=== PATIENT | male | born 1940 | race Caucasian/White ===

== ENCOUNTER 2016-10-25 06:53 | Emergency (ER) | payer MEDICARE ==
[2016-10-25] MEDS ORDERED: Metoprolol Tartrate IV* 1 MG/ML 5 ML VIAL IV ONE (07:33)
[2016-10-25] MEDS ORDERED: NS 0.9% 1000 ML* 1,000 ML IV ONE (07:33)
[2016-10-25] MEDS ORDERED: Metoprolol Succinate XL TAB* 100 MG PO ONE (07:37)
[2016-10-25 07:44] LABS: Hematocrit 35 % (42-52); Hemoglobin 11.1 g/dl (14.0-18.0); Mean Corpuscular HGB Conc 32 g/dl (31-36); Mean Corpuscular Hemoglobin 27 pg (27-31); Mean Corpuscular Volume 85 fL (80-94); Mean Platelet Volume 7 um3 (7.4-10.4); Red Blood Count 4.08 10^6/ul (4.0-5.4); Red Cell Distribution Width 17 % (10.5-15); White Blood Count 8.2 10^3/ul (3.5-10.8)
[2016-10-25 08:00] LABS: Albumin 3.4 g/dL (3.2-5.2); Calcium 8.9 mg/dL (8.6-10.3); EGFR African American 93.2 (>60); EGFR Non-African American 72.5 (>60); Globulin 3.2 g/dL (2-4); Magnesium 1.8 mg/dL (1.9-2.7); Potassium 3.8 mmol/L (3.5-5.0); Total Bilirubin 0.5 mg/dL (0.2-1.0); Total Protein 6.6 g/dL (6.4-8.9)
[2016-10-25 08:02] LABS: Troponin I 0.01 ng/mL (<0.04)
[2016-10-25] MEDS ORDERED: Magnesium Oxide TAB* 400 MG PO ONE (08:11)
--- NOTE | 2016-10-25 08:16 | RAD ---
INDICATION: "Racing heart" COMPARISON: Chest x-ray dated December 26, 2015 TECHNIQUE: Single AP portable view of the chest was obtained. FINDINGS: Image quality is compromised due to the relative inferiority of a portable chest x-ray. Postoperative findings include sternotomy wires and surgical clips overlying the left upper mediastinum. The heart and mediastinum exhibit normal size and contour. The lungs are grossly clear. There is no evidence of a large pleural effusion. Visualized bones are normal for the patient's age. IMPRESSION: No radiographic evidence for acute cardiopulmonary abnormality on this portable chest x-ray.
[2016-10-25 08:48] VITALS: BP 130/75
[2016-10-25 09:01] LABS: TSH (Thyroid Stimulating Horm) 3.45 mcIU/mL (0.34-5.60)
--- NOTE | 2016-10-25 12:54 | ED ---
Hayley Mosqueda Matthew, scribed for Axel Torres MD on 10/25/16 at 0739 . Palpitations / Dysrhythmia - HPI Summary HPI Summary: A 75 y/o male presents to the ED with palpitations since this morning s/p CABG. The patient had [place] The patient has had a normal recover thus far except for recurrent UTIs with associated dysuria. The patient has been on Abx course since 3 days ago and had a bout of diarrhea on 10/22, which has since resolved. Today, the patient denies lightheadedness, fever, chills, chest pain, SOB, diarrhea, vomiting, and decreased appetite. He's been having normal BM. The patient is on 100mg of metoprolol once per day; however, he ran out of the medication a few days ago. - History of Current Complaint Chief Complaint: EDGeneral Time Seen by Provider: 10/25/16 07:17 Hx Obtained From: Patient, Family/Ase Certified Technician - Onset/Duration: Lasting Hours, Still Present Timing: Constant Severity Initially: Moderate Severity Currently: Moderate Character: Fast Alleviating: Nothing Associated Signs & Symptoms: Negative - Allergy/Home Medications Allergies/Adverse Reactions: Allergies Allergy/AdvReac Type Severity Reaction Status Date / Time No Known Allergies Allergy Verified 03/19/16 09:03 PMH/Surg Hx/FS Hx/Imm Hx Endocrine/Hematology History: Reports: Hx Thyroid Disease, Hx Anemia - ON IRON SUPPLEMENT Denies: Hx Anticoagulant Therapy, Hx Diabetes Cardiovascular History: Reports: Hx Angina, Hx Coronary Artery Disease - STENT , Hx Hypercholesterolemia, Hx Hypertension, Hx Myocardial Infarction, Other Cardiovascular Problems/Disorders - CARDIAC DISEASE Denies: Hx Congestive Heart Failure, Hx Pacemaker/ICD, Hx Valvular Heart Disease Respiratory History: Reports: Hx Chronic Obstructive Pulmonary Disease (COPD), Other Respiratory Problems/Disorders - ACTIVE SMOKER 2 PPD Denies: Hx Asthma GI History: Reports: Hx Diverticulosis, Hx Gastroesophageal Reflux Disease, Hx Ulcer - gerd, Other GI Disorders - HX OF DIVERTICULOSIS- MONITORING AT PRESENT History: Reports: Hx Kidney Stones - HX OF, Other Problems/Disorders - RENAL DISEASE/INSUFFENCY? Denies: Hx Dialysis, Hx Renal Disease Musculoskeletal History: Denies: Hx Osteoporosis Sensory History: Reports: Hx Cataracts - Bilateral, cataract surgery, Hx Contacts or Glasses, Hx Eye Injury - receiving abx for infection in left eye per pt. 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 Denies: Other Sensory Impairments Neurological History: Denies: Hx Dementia, Hx Seizures Psychiatric History: Denies: Hx Panic Disorder, Hx Substance Abuse - Cancer History Cancer Type, Location and Year: THROAT CA, 2009 - currently in remission Hx Chemotherapy: No Hx Radiation Therapy: Yes - Surgical History Surgery Procedure, Year, and Place: [id number]-CATARACT SX BOTH EYES-CYST REMOVED FROM RT SHOULDER 1999, stent [id number] CLEARED FOR UP TO 720G/CM-OK FOR EITHER 1.5 OR 3T-RIGHT EYE PROSTHESIS-EYES CLEARED ORBIT DX [facility] 12/14/13 Hx Anesthesia Reactions: No - Immunization History Date of Tetanus Vaccine: Unk Date of Influenza Vaccine: Fall 2012 Infectious Disease History: No Infectious Disease History: Denies: Hx Clostridium Difficile, Hx Hepatitis, Hx Human Immunodeficiency Virus (HIV), Hx of Known/Suspected MRSA, Hx Shingles, Hx Tuberculosis, Traveled Outside the [place] in Last 30 Days - Family History Known Family History: Positive: Cardiac Disease - Social History Alcohol Use: None Hx Substance Use: No Substance Use Type: Reports: None Hx Tobacco Use: Yes Smoking Status (MU): Heavy Every Day Tobacco Smoker Type: Cigarettes, Cigars Amount Used/How Often: 1ppd (+) Length of Time of Smoking/Using Tobacco: approximate 60yrs Have You Smoked in the Last Year: Yes Review of Systems Constitutional: Negative Negative: Fever, Chills Eyes: Negative ENT: Negative Positive: Palpitations. Negative: Chest Pain Respiratory: Negative Negative: Shortness Of Breath Gastrointestinal: Negative Negative: Vomiting, Diarrhea Genitourinary: Negative Musculoskeletal: Negative Skin: Negative Neurological: Negative Psychological: Normal All Other Systems Reviewed And Are Negative: Yes Physical Exam - Summary Physical Exam Summary: The patient is well-nourished in no acute distress and in no acute pain. The skin has decreased turgor. The patient also had cyanosis of nail beds. HEENT: The head is normocephalic and atraumatic. The pupils are equal and reactive. The conjunctivae are clear and without drainage. Nares are patent and without drainage. Mouth reveals dry mucous membranes and the throat is without erythema and exudate. The external ears are intact. The ear canals are patent and without drainage. The tympanic membranes are intact. Neck is supple with full range of motion and non-tender. There are no carotid bruits. There is no neck vein distension. Respiratory: Chest is non-tender. Lungs are clear to auscultation and breath sounds are symmetrical and equal. Cardiovascular: Heart is irregular rhythm with an occasional extra beat and tachycardic. There is no murmur or rub auscultated. There is no peripheral edema and pulses are symmetrical and equal. Abdomen: The abdomen is soft and non-tender. There are normal bowel sounds heard in all four quadrants and there is no organomegaly palpated. No abdomen aneurysm appreciated. Musculoskeletal: The patient's sternum scar as healed well from his CABG x3. There is no back pain noted. Extremities are non-tender with full range of motion. There is good capillary refill. There is no peripheral edema or calf tenderness elicited. Neurological: Patient is alert and oriented to person, place and time. The patient has symmetrical motor strength in all four extremities. Cranial nerves are grossly intact. Deep tendon reflexes are symmetrical and equal in all four extremities. Psychiatric: The patient has an appropriate affect and does not exhibit any anxiety or depression. Triage Information Reviewed: Yes Vital Signs On Initial Exam: Initial Vitals Temp Pulse Resp BP Pulse Ox 97.5 F 109 13 148/75 97 10/25/16 07:06 10/25/16 07:06 10/25/16 07:06 10/25/16 07:06 10/25/16 07:06 Vital Signs Reviewed: Yes - [place] Coma Scale Coma Scale Total: 15 Diagnostics - Vital Signs Vital Signs Temp Pulse Resp BP Pulse Ox 10/25/16 07:20 97.5 F 95 13 148/75 96 10/25/16 07:19 97.5 F 95 13 148/75 96 10/25/16 07:12 97.5 F 95 13 148/75 96 10/25/16 07:06 97.5 F 109 13 148/75 97 - Laboratory Lab Results: Lab Results 10/25/16 10/25/16 10/25/16 Range/Units 07:35 07:35 07:35 WBC 8.2 (3.5-10.8) 10^3/ul RBC 4.08 (4.0-5.4) 10^6/ul Hgb 11.1 L (14.0-18.0) g/dl Hct 35 L (42-52) % MCV 85 (80-94) fL MCH 27 (27-31) pg MCHC 32 (31-36) g/dl RDW 17 H (10.5-15) % Plt Count 244 (150-450) 10^3/ul MPV 7 L (7.4-10.4) um3 Neut % (Auto) 81.6 (38-83) % Lymph % (Auto) 7.7 L (25-47) % [place] % (Auto) 6.6 (1-9) % Eos % (Auto) 2.7 (0-6) % Baso % (Auto) 1.4 (0-2) % Absolute Neuts (auto) 6.7 (1.5-7.7) 10^3/ul Absolute Lymphs (auto) 0.6 L (1.0-4.8) 10^3/ul Absolute Monos (auto) 0.5 (0-0.8) 10^3/ul Absolute Eos (auto) 0.2 (0-0.6) 10^3/ul Absolute Basos (auto) 0.1 (0-0.2) 10^3/ul Absolute Nucleated RBC 0.01 10^3/ul Nucleated RBC % 0.1 Sodium 136 (133-145) mmol/L Potassium 3.8 (3.5-5.0) mmol/L Chloride 106 (101-111) mmol/L Carbon Dioxide 23 (22-32) mmol/L Anion Gap 7 (2-11) mmol/L BUN 20 (6-24) mg/dL Creatinine 1.00 (0.67-1.17) mg/dL Est GFR ( Amer) 93.2 (>60) Est GFR (Non-Af Amer) 72.5 (>60) BUN/Creatinine Ratio 20.0 (8-20) Glucose 119 H (70-100) mg/dL Lactic Acid 1.5 (0.5-2.0) mmol/L Calcium 8.9 (8.6-10.3) mg/dL Magnesium 1.8 L (1.9-2.7) mg/dL Total Bilirubin 0.50 (0.2-1.0) mg/dL AST 14 (13-39) U/L ALT 6 L (7-52) U/L Alkaline Phosphatase 101 (34-104) U/L Troponin I 0.01 (<0.04) ng/mL Total Protein 6.6 (6.4-8.9) g/dL Albumin 3.4 (3.2-5.2) g/dL Globulin 3.2 (2-4) g/dL Albumin/Globulin Ratio 1.1 (1-3) TSH 3.45 (0.34-5.60) mcIU/mL Result Diagrams: 10/25/16 07:35 10/25/16 07:35 Lab Statement: Any lab studies that have been ordered have been reviewed, and results considered in the medical decision making process. - Radiology CXR Xray Interpretation: No Acute Changes - IMPRESSION: No radiographic evidence for acute cardiopulmonary abnormality on this portable chest x-ray. Radiology Interpretation Completed By: Radiologist - EKG 06:54 Cardiac Rate: Tachycardia - 113 bpm EKG Rhythm: Sinus Tachycardia Ectopy: PVCs EKG Interpretation: RBBB; T-Wave Inversion V3-V6, Poor R Wave Progression Re-Evaluation - Re-Evaluation First Eval Re-Evaluation Time: 08:10 Change: Improved Comment: The patient feels better. He is orthostatic and is heart rate and blood pressure are down. Course/Dx - Course Assessment/Plan: A 75 y/o male presents to the ED with palpitations since this morning s/p CABG. The patient had the procedure in [place]. EKG showed sinus tachycardia at 113 bpm w/ RBBB, T-Wave Inversion V3-V6, and Poor R Wave Progression. CXR showed no active cardiopulmonary disease. Patient labs were reviewed. In the ED course, the patient was given IV fluid, MagOx, Toprol, and Lopressor. He did well in the ED and is orthostatic. The patient will be discharged home and has a scheduled echocardiogram. - Diagnoses Differential Diagnosis/HQI/PQRI: Positive: Coronary Artery Disease, Hypokalemia , Other - hypomagnesium, anemia, a-fib Provider Diagnoses: Tachycardia, Dehydration Discharge - Discharge Plan Condition: Stable Disposition: HOME Prescriptions: Metoprolol Succinate XL TAB* [Toprol XL TAB*] 100 mg PO DAILY #30 tab.xl Patient Education Materials: Palpitations (ED), Dehydration (ED), Metoprolol ( By mouth) Referrals: Kaia Jeffers MD [Primary Care Provider] - 3 Days Additional Instructions: Please follow-up with your your primary care physician and keep your appointment for your echocardiogram. The documentation as recorded by the Hayley melendrez Matthew accurately reflects the service I personally performed and the decisions made by , Axel Torres MD.
== END 2016-10-25 08:46 | disposition home or self-care (01) ==
LOC: ED 06:53
DX: R00.0 Tachycardia, unspecified (principal); Z95.1 Presence of aortocoronary bypass graft; F17.290 Nicotine dependence, other tobacco product, uncomplicated; I25.810 Atherosclerosis of coronary artery bypass graft(s) without angina pectoris; R94.31 Abnormal electrocardiogram [ECG] [EKG]
CPT/HCPCS: 36415; 71010; 80053; 83605; 83735; 84443; 84484; 85025; 93005; 96361; 96374; 99285; A9270-GY; J3490

== ENCOUNTER 2016-11-24 11:53 | Emergency (ER) | payer MEDICARE ==
[2016-11-24 12:06] VITALS: BP 132/55
--- NOTE | 2016-11-24 13:23 | UC ---
Andrey Mosqueda Rebecca, scribed for Ginger Monreal MD on 11/24/16 at 1228 . Abdominal Pain Male HPI - HPI Summary HPI Summary: Pt is a 75 y/o M who presents to [facility] c/o left side abd pain. Pain began gradually 4 days ago, worse today. Pain is diffuse abdominal cramping, particularly in the LLQ, without radiation. Sx aggravated and alleviated by nothing. Additionally c/o diarrhea. Denies melena or blood in stool. No urinary sx. PMHx diverticulitis and AAA. Current episode similar to previous episodes of diverticulitis flareups, the last of which was a few years ago and treated with IV abx and oral Abx. Has not had surgical intervention. PCP is Dr. Jeffers. 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 Allergy to Metronidazole. Recent PSHx triple CABG (September 2016). No cp / sob / palpitations. No n/v. No back pain. No new p/d/w. + hx aaa, last ct March 2016. 5.3cm x 5.3cm - History of Current Complaint Chief Complaint: [facility] [place] Stated Complaint: ABD PAIN Hx Obtained From: Patient Onset/Duration: Sudden Onset - 4 days, Still Present Timing: Intermittent Episodes Lasting: Severity Initially: Mild Severity Currently: Mild Pain Intensity: 1 Pain Scale Used: 0-10 Numeric Location: Diffuse Radiates: No Character: Cramping Aggravating Factor(s):: Nothing Alleviating Factor(s): Nothing Associated Signs And Symptoms: Positive: Diarrhea - 4 days, Other - Denies melena. Negative: Blood in Stool Similar Episode/Dx As:: Previous diverticulitis flareups - Allergies/Home Medications Allergies/Adverse Reactions: Allergies Allergy/AdvReac Type Severity Reaction Status Date / Time Metronidazole [From Flagyl] AdvReac Nausea And Verified 11/24/16 13:13 Vomiting PMH/Surg Hx/FS Hx/Imm Hx Previously Healthy: No - see hpi. Recent triple bypass with LLE saph harvest Endocrine History Of: Reports: Thyroid Disease - hypothyroid Denies: Diabetes Cardiovascular History Of: Reports: Cardiac Disorders - CABG x3 09/10/16, [place] 1989 w/ Angioplasty, Stents 2014, Hypertension, Myocardial Infarction Denies: Pacemaker/ICD, Congestive Heart Failure Respiratory History Of: Reports: COPD Denies: Asthma GI/ History Of: Reports: Gastroesophageal Reflux, Ulcer - gerd, Kidney Stones - HX OF, Diverticulitis Denies: Renal Disease Neurological History Of: Denies: CVA, Dementia, Seizures Other History Of: Negative For: Anticoagulant Therapy - Surgical History Surgical History: Yes Surgery Procedure, Year, and Place: 1954-APPENDECTOMY-. COLONOSCOPIES-. CATARACT SX BOTH EYES-. CYST REMOVED FROM RT SHOULDER 1999,. stent placement 2014-[place] CLEARED FOR UP TO 720G/CM-OK FOR EITHER 1.5 OR 3T-. RIGHT EYE PROSTHESIS-E[place] CLEAR[place] [facility] [place]. [place] 10 2016 - triple CABG - Family History Known Family History: Positive: Cardiac Disease - Social History Alcohol Use: Rare Substance Use Type: None Smoking Status (MU): Heavy Every Day Tobacco Smoker Type: Cigarettes, Cigars Amount Used/How Often: 1ppd (+) Length of Time of Smoking/Using Tobacco: approximate 60yrs Have You Smoked in the Last Year: Yes Household Exposure Type: Cigars - Immunization History Most Recent Influenza Vaccination: 2013 Most Recent Tetanus Shot: 2012 Most Recent Pneumonia Vaccination: 2013 Review of Systems Constitutional: Negative Skin: Negative Eyes: Negative ENT: Negative Respiratory: Negative Cardiovascular: Negative Gastrointestinal: Abdominal Pain - See HPI, Diarrhea - See HPI Genitourinary: Other - Denies melena, blood in stool Motor: Negative Neurovascular: Negative Musculoskeletal: Negative Neurological: Negative Psychological: Negative All Other Systems Reviewed And Are Negative: Yes - Comments Additional Review of Systems Comments: See HPI Physical Exam Triage Information Reviewed: Yes Appearance: Well-Nourished - sitting up, able to lie down for examination Vital Signs: Initial Vital Signs Temp 97.7 F 11/24/16 11:59 Pulse 90 11/24/16 11:59 Resp 20 11/24/16 11:59 BP 132/55 11/24/16 11:59 Pulse Ox 99 11/24/16 11:59 Vital Signs Reviewed: Yes Eye Exam: Normal ENT Exam: Normal Neck exam: Normal - supple for age, +arthritic appearance. Respiratory Exam: Normal Respiratory: Positive: Chest non-tender, Lungs clear, Normal breath sounds, No respiratory distress, No accessory muscle use Cardiovascular: Positive: RRR, No Murmur, Pulses Normal, Brisk Capillary Refill , Other: - S2 click in heart rhythm with an occasional skipped beat; Posterior tibial 1+ pulses equal, DP palpable but faint Abdominal Exam: Normal Abdomen Description: Positive: No Organomegaly, Soft, Bruit - Mid-abdominal bruit, no iliac bruit detected. Negative: Nontender - Tenderness in LLQ and LUQ , no r/g. Bowel Sounds: Positive: Present Musculoskeletal Exam: Normal Musculoskeletal: Positive: Strength Intact Neurological Exam: Normal - Nonfocal, grossly intact Psychological Exam: Normal - Conversing easily and appropriately Skin Exam: Normal Skin: Negative: rashes Abd Pain Male Course/Dx - Course Course Of Treatment: No new problems in CCC. Considered below differential Dx s. Counseled pt on the necessity of further evaluation and treatment of acute abdominal pain by [facility]. Patient offered and encouraged EMS. Patient declines. AMA signed for EMS. Spoke with Shantanu Solorio NP. Questions answered as posed. - Differential Dx/Clinical Impression Provider Diagnoses: Acute abdominal pain Discharge - Discharge Plan Condition: Stable Disposition: TRANS HIGHER LVL OF CARE FAC Referrals: Kaia Jeffers MD [Primary Care Provider] - The documentation as recorded by the Andrey melendrez Rebecca accurately reflects the service I personally performed and the decisions made by me, Ginger Monreal MD.
== END 2016-11-24 12:53 | disposition short-term general hospital (02) ==
LOC: UCEAST 11:53
DX: R10.9 Unspecified abdominal pain (principal); E03.9 Hypothyroidism, unspecified; I10 Essential (primary) hypertension; J44.9 Chronic obstructive pulmonary disease, unspecified; K21.9 Gastro-esophageal reflux disease without esophagitis; I25.2 Old myocardial infarction; Z98.61 Coronary angioplasty status; Z95.1 Presence of aortocoronary bypass graft; Z87.442 Personal history of urinary calculi; Z87.891 Personal history of nicotine dependence
CPT/HCPCS: 99202; G0463

== ENCOUNTER 2016-11-24 13:05 | Emergency (ER) | payer MEDICARE ==
[2016-11-24 15:22] LABS: Hematocrit 33 % (42-52); Hemoglobin 10.3 g/dl (14.0-18.0); Mean Corpuscular HGB Conc 31 g/dl (31-36); Mean Corpuscular Hemoglobin 26 pg (27-31); Mean Corpuscular Volume 82 fL (80-94); Mean Platelet Volume 7 um3 (7.4-10.4); Red Blood Count 4.06 10^6/ul (4.0-5.4); Red Cell Distribution Width 17 % (10.5-15); White Blood Count 11.9 10^3/ul (3.5-10.8)
[2016-11-24 15:45] LABS: Albumin 3.6 g/dL (3.2-5.2); BUN/Creatinine Ratio 18.9 (8-20); C Reactive Protein 68.72 mg/L (< 5.00); Calcium 8.8 mg/dL (8.6-10.3); EGFR African American 98.9 (>60); EGFR Non-African American 76.9 (>60); Globulin 3.2 g/dL (2-4); Total Bilirubin 0.4 mg/dL (0.2-1.0); Total Protein 6.8 g/dL (6.4-8.9)
[2016-11-24 16:16] LABS: Potassium 3.5 mmol/L (3.5-5.0)
--- NOTE | 2016-11-24 16:56 | RAD ---
CLINICAL HISTORY: Left flank pain. Relevant surgical history includes appendectomy. COMPARISON: Similar CT examination dated November 25, 2015 TECHNIQUE: Noncontrast CT examination of the abdomen and pelvis from the lung bases through the initial tuberosities acquired on November 25, 2015 at 1526 hours. FINDINGS: VISUALIZED LUNG BASES: Again seen are centrilobular emphysematous changes. ABDOMEN AND PELVIS: Evaluation of the solid organs and vasculature is limited without intravenous contrast. The liver, spleen, pancreas and adrenal glands are grossly normal in appearance. The gallbladder is normal. In the left kidney there is a nonobstructing 3 mm renal calculus. There is no hydroureter nephrosis bilaterally. Evaluation of the gastrointestinal tract is limited without oral contrast. There is no small bowel dilatation. Consistent with the patient's surgical history the appendix is not identified. There are numerable rectosigmoid diverticula with mild questionable infiltration of the pericolonic mesenteric fat at the junction of the descending colon and sigmoid colon (for example image 128 of 188). There is no gross retroperitoneal or mesenteric lymphadenopathy. The pelvic viscera is normal in appearance. There is moderate atherosclerotic calcification of the abdominal aorta extending in the bilateral iliac arteries. There is an infrarenal abdominal aortic aneurysm measuring 5.5 x 5.5 cm in the axial plane, not substantially changed from the previous CT examination. Multilevel degenerative changes of the lower thoracic and lumbar spine include loss of intervertebral disc height. There is anterior marginal bridging osteophyte formation in the lower thoracic spine.There are no sinister bone lesions. IMPRESSION: 1. Diverticulosis with questionable mild pericolonic inflammatory change at the junction of the descending colon and sigmoid colon. 2. Nonobstructing 3 mm calculus in the left kidney. 3. Abdominal aortic aneurysm measuring 5.5 x 5.5 cm in the axial plane, not substantially changed from the November 25, 2015 CT examination. 4. Additional chronic and degenerative changes as described in the body of the report.
[2016-11-24 18:08] VITALS: BP 105/51
--- NOTE | 2016-11-24 19:39 | ED ---
Kevin Mosqueda Janilya, scribed for Ray Adames MD on 11/24/16 at 1458 . Abdominal Pain/Male - HPI Summary HPI Summary: A 75 y/o male came in to [facility] presenting w/ a gradual onset of intermittent LLQ pain and diarrhea for the past 4 days. At this time, pt is not in pain. His diarrhea is runny, but it does not have blood particles. Pt denies nausea. Pt was seen at Urgent Care earlier today and sent here for further workup. PMHx diverticulitis. - History of Current Complaint Chief Complaint: EDAbdPain Stated Complaint: ABD PAIN/DIARRHEA Time Seen by Provider: 11/24/16 14:55 Hx Obtained From: Patient Onset/Duration: Gradual Onset, Lasting Days, Still Present Timing: Constant Severity Initially: Moderate Severity Currently: Moderate Pain Intensity: 20 Pain Scale Used: 0-10 Numeric Location: Discrete At: LLQ Radiates: No Aggravating Factor(s): Nothing Alleviating Factor(s): Nothing Associated Signs And Symptoms: Positive: Diarrhea - Allergies/Home Medications Allergies/Adverse Reactions: Allergies Allergy/AdvReac Type Severity Reaction Status Date / Time Metronidazole [From Flagyl] AdvReac Nausea And Verified 11/24/16 13:13 Vomiting PMH/Surg Hx/FS Hx/Imm Hx Previously Healthy: Yes Endocrine/Hematology History: Reports: Hx Thyroid Disease - hypothyroid, Hx Anemia - ON IRON SUPPLEMENT Denies: Hx Anticoagulant Therapy, Hx Diabetes Cardiovascular History: Reports: Hx Angina, Hx Coronary Artery Disease - STENT , Hx Hypercholesterolemia, Hx Hypertension, Hx Myocardial Infarction, Other Cardiovascular Problems/Disorders - CARDIAC DISEASE Denies: Hx Congestive Heart Failure, Hx Pacemaker/ICD, Hx Valvular Heart Disease Respiratory History: Reports: Hx Chronic Obstructive Pulmonary Disease (COPD), Other Respiratory Problems/Disorders - ACTIVE SMOKER 2 PPD Denies: Hx Asthma GI History: Reports: Hx Diverticulosis, Hx Gastroesophageal Reflux Disease, Hx Ulcer - gerd, Other GI Disorders - HX OF DIVERTICULOSIS- MONITORING AT PRESENT History: Reports: Hx Kidney Stones - HX OF, Other Problems/Disorders - RENAL DISEASE/INSUFFENCY? Denies: Hx Dialysis, Hx Renal Disease Musculoskeletal History: Denies: Hx Osteoporosis Sensory History: Reports: Hx Cataracts - Bilateral, cataract surgery, Hx Contacts or Glasses, Hx Eye Injury - receiving abx for infection in left eye per pt. 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 COLONOSCOPIES-. CATARACT SX BOTH EYES-. CYST REMOVED FROM RT SHOULDER 1999,. stent placement 2014-[facility] CLEARED FOR UP TO 720G/CM-OK FOR EITHER 1.5 OR 3T-. RIGHT EYE PROSTHESIS-EYES CLEARED ORBIT DX [facility] 12/14/13. September 10 2016 - triple CABG Hx Anesthesia Reactions: No - Immunization History Date of Tetanus Vaccine: Unk Date of Influenza Vaccine: Fall 2012 Infectious Disease History: No Infectious Disease History: Denies: Hx Clostridium Difficile, Hx Hepatitis, Hx Human Immunodeficiency Virus (HIV), Hx of Known/Suspected MRSA, Hx Shingles, Hx Tuberculosis, Traveled Outside the [place] in Last 30 Days - Family History Known Family History: Positive: Cardiac Disease - Social History Alcohol Use: Rare Hx Substance Use: No Substance Use Type: Reports: None Hx Tobacco Use: Yes Smoking Status (MU): Heavy Every Day Tobacco Smoker Type: Cigarettes, Cigars Amount Used/How Often: 1ppd (+) Length of Time of Smoking/Using Tobacco: approximate 60yrs Have You Smoked in the Last Year: Yes Review of Systems Negative: Fever Positive: Abdominal Pain, Diarrhea All Other Systems Reviewed And Are Negative: Yes Physical Exam Triage Information Reviewed: Yes Vital Signs On Initial Exam: Initial Vitals Temp Pulse Resp BP Pulse Ox 97.8 F 95 16 123/62 100 11/24/16 13:13 11/24/16 13:13 11/24/16 13:13 11/24/16 13:13 11/24/16 13:13 Vital Signs Reviewed: Yes Appearance: Positive: Well-Appearing, No Pain Distress Skin: Positive: Warm, Skin Color Reflects Adequate Perfusion, Dry Head/Face: Positive: Normal Head/Face Inspection Eyes: Positive: Normal ENT: Positive: Normal ENT inspection Neck: Positive: Supple, Nontender Respiratory/Lung Sounds: Positive: Clear to Auscultation, Breath Sounds Present Cardiovascular: Positive: RRR Abdomen Description: Positive: Soft, Other: - Mild LLQ tenderness. Negative: Nontender Bowel Sounds: Positive: Present Musculoskeletal: Positive: Normal Neurological: Positive: Normal Psychiatric: Positive: Affect/Mood Appropriate Diagnostics - Vital Signs Vital Signs Temp Pulse Resp BP Pulse Ox 11/24/16 14:39 97.9 F 101 18 118/81 96 11/24/16 13:13 97.8 F 95 16 123/62 100 - Laboratory Lab Results: Lab Results 11/24/16 11/24/16 Range/Units 15:05 15:05 WBC 11.9 H (3.5-10.8) 10^3/ul RBC 4.06 (4.0-5.4) 10^6/ul Hgb 10.3 L (14.0-18.0) g/dl Hct 33 L (42-52) % MCV 82 (80-94) fL MCH 26 L (27-31) pg MCHC 31 (31-36) g/dl RDW 17 H (10.5-15) % Plt Count 246 (150-450) 10^3/ul MPV 7 L (7.4-10.4) um3 Neut % (Auto) 80.1 (38-83) % Lymph % (Auto) 7.0 L (25-47) % [place] % (Auto) 11.3 H (1-9) % Eos % (Auto) 1.2 (0-6) % Baso % (Auto) 0.4 (0-2) % Absolute Neuts (auto) 9.5 H (1.5-7.7) 10^3/ul Absolute Lymphs (auto) 0.8 L (1.0-4.8) 10^3/ul Absolute Monos (auto) 1.4 H (0-0.8) 10^3/ul Absolute Eos (auto) 0.1 (0-0.6) 10^3/ul Absolute Basos (auto) 0.1 (0-0.2) 10^3/ul Absolute Nucleated RBC 0.01 10^3/ul Nucleated RBC % 0.1 Sodium 135 (133-145) mmol/L Potassium 3.5 (3.5-5.0) mmol/L Chloride 106 (101-111) mmol/L Carbon Dioxide 24 (22-32) mmol/L Anion Gap 5 (2-11) mmol/L BUN 18 (6-24) mg/dL Creatinine 0.95 (0.67-1.17) mg/dL Est GFR ( Amer) 98.9 (>60) Est GFR (Non-Af Amer) 76.9 (>60) BUN/Creatinine Ratio 18.9 (8-20) Glucose 95 (70-100) mg/dL Calcium 8.8 (8.6-10.3) mg/dL Total Bilirubin 0.40 (0.2-1.0) mg/dL AST 13 (13-39) U/L ALT 5 L (7-52) U/L Alkaline Phosphatase 92 (34-104) U/L C-Reactive Protein 68.72 H (< 5.00) mg/L Total Protein 6.8 (6.4-8.9) g/dL Albumin 3.6 (3.2-5.2) g/dL Globulin 3.2 (2-4) g/dL Albumin/Globulin Ratio 1.1 (1-3) Result Diagrams: 11/24/16 15:05 11/24/16 15:05 Lab Statement: Any lab studies that have been ordered have been reviewed, and results considered in the medical decision making process. - CT abd/pel CT Interpretation: Positive (See Comments) - IMPRESSION: 1. Diverticulosis with questionable mild pericolonic inflammatory change at the junction of the descending colon and sigmoid colon. 2. Nonobstructing 3 mm calculus in the left kidney. 3. Abdominal aortic aneurysm measuring 5.5 x 5.5 cm in the axial plane, not substantially changed from the November 25, 2015 CT examination. 4. Additional chronic and degenerative changes as described in the body of the report. CT Interpretation Completed By: Radiologist Abdominal Pain Fem Course/Dx - Course Course Of Treatment: Mr. Munoz's CT was equivocal for diverticulits but his clinical presentation certainly suggested it so I treated him accordingly. - Diagnoses Provider Diagnoses: Diverticulitis Discharge - Discharge Plan Condition: Stable Disposition: HOME Prescriptions: Amoxicillin/Clavulanate TAB* [Augmentin TAB 875*] 875 mg PO BID #20 tab Patient Education Materials: Diverticulitis (ED) Referrals: Kaia Jeffers MD [Primary Care Provider] - 2 Days Additional Instructions: Please follow up with your primary care provider in 2 days. The documentation as recorded by the Kevin melendrez Janilya accurately reflects the service I personally performed and the decisions made by me, Ray Adames MD.
== END 2016-11-24 18:12 | disposition home or self-care (01) ==
LOC: ED 13:05
DX: K57.92 Diverticulitis of intestine, part unspecified, without perforation or abscess without bleeding (principal); R10.32 Left lower quadrant pain; R19.7 Diarrhea, unspecified; F17.210 Nicotine dependence, cigarettes, uncomplicated
CPT/HCPCS: 36415; 74176; 80053; 82272; 85025; 86140; 99283

== ENCOUNTER 2017-06-16 08:45 | Emergency (ER) | payer MEDICARE ==
[2017-06-16 09:31] LABS: Hematocrit 39 % (42-52); Hemoglobin 12.8 g/dl (14.0-18.0); Mean Corpuscular HGB Conc 33 g/dl (31-36); Mean Corpuscular Hemoglobin 26 pg (27-31); Mean Corpuscular Volume 80 fL (80-94); Mean Platelet Volume 7 um3 (7.4-10.4); Red Blood Count 4.89 10^6/ul (4.0-5.4); Red Cell Distribution Width 20 % (10.5-15); White Blood Count 7.2 10^3/ul (3.5-10.8)
[2017-06-16 09:52] LABS: Albumin 3.7 g/dL (3.2-5.2); BUN/Creatinine Ratio 23.9 (8-20); C Reactive Protein 1.01 mg/L (< 5.00); Calcium 8.8 mg/dL (8.6-10.3); EGFR African American 80.7 (>60); EGFR Non-African American 62.8 (>60); Globulin 2.8 g/dL (2-4); Potassium 3.8 mmol/L (3.5-5.0); Total Bilirubin 0.5 mg/dL (0.2-1.0); Total Protein 6.5 g/dL (6.4-8.9)
--- NOTE | 2017-06-16 09:52 | RAD ---
INDICATION: Left flank abdominal pain. COMPARISON: There are no prior studies available for comparison. TECHNIQUE: A CT scan of the abdomen and pelvis was performed without intravenous or oral contrast. Contiguous axial sections were obtained from the lung bases through the symphysis pubis. Images were reconstructed in the coronal and sagittal planes. FINDINGS: The lung bases are clear. No pleural effusion is present. The liver and spleen are within normal limits in size without significant focal abnormality on this noncontrast study. No calcified gallstones are seen. The pancreas appears to be within normal limits in size. The adrenal glands and kidneys are normal in size. There are 2 small calculi within the lower pole of the left kidney measuring 2 and 3 mm each. There is mild bilateral perinephric stranding which appears unchanged. No hydronephrosis is seen. No ureteral or bladder calculi are noted. There is an infrarenal fusiform shaped aneurysm of the mid and distal abdominal aorta measuring up to 5.8 cm in transverse dimension slightly increased in size from the prior exam previously measuring 5.5 cm in transverse dimension. There is moderate to severe calcific plaque throughout the abdominal aorta. No significant enlarged retroperitoneal lymph nodes are seen. The stomach is moderately distended. The small bowel and colon are nondistended. The patient is status post appendectomy by history. There is severe descending and sigmoid diverticulosis without gross evidence for diverticulitis. There is a left inguinal hernia containing fat. There is a small amount of free intraperitoneal fluid in the pelvis. No free intraperitoneal air is seen. No significant focal osseous abnormality is seen. IMPRESSION: 1. SMALL NONOBSTRUCTING LEFT RENAL CALCULI. 2. MODERATE GASTRIC DISTENTION. 3. 5.8 CM FUSIFORM SHAPED ANEURYSM OF THE MID AND DISTAL ABDOMINAL AORTA SLIGHTLY INCREASED IN SIZE. 4. SMALL AMOUNT OF FREE INTRAPERITONEAL FLUID IN THE PELVIS.
[2017-06-16] MEDS ORDERED: Morphine INJ* 4 MG/ML 1 ML CARPUJECT IV ONE (10:37)
[2017-06-16] MEDS ORDERED: NS 0.9% 1000 ML* 1,000 ML IV ONE (10:37)
[2017-06-16] MEDS ORDERED: Ondansetron INJ* 2 MG/ML VIAL IV ONE (10:38)
[2017-06-16 13:00] LABS: Urine Bacteria Absent (Absent); Urine Bilirubin Negative (Negative); Urine Glucose Negative (Negative); Urine Nitrite Negative (Negative)
[2017-06-16] MEDS ORDERED: Ciprofloxacin 400MG IVPREMIX(* 400 MG/200 ML BAG IVPB ONE (13:17)
--- NOTE | 2017-06-16 14:59 | ED ---
Julienne Mosqueda Emily, scribed for David Bowen MD on 06/16/17 at 0921 . Abdominal Pain/Male - HPI Summary HPI Summary: This patient is a 76 year old M presenting to [facility] accompanied by with a chief complaint of L flank pain that began 2 weeks ago. Pain is constant and worsened [place]. The patient rates the pain 9/10 in severity. Symptoms aggravated by nothing. Symptoms alleviated by nothing. Patient denies nausea and vomiting. PMHx includes kidney stones. - History of Current Complaint Chief Complaint: EDFlankPain Stated Complaint: LEFT FLANK PAIN Time Seen by Provider: 06/16/17 09:07 Hx Obtained From: Patient Onset/Duration: Sudden Onset, Lasting Weeks, Still Present Timing: Constant, Lasting Weeks Severity Initially: Severe Severity Currently: Severe Pain Intensity: 9 Pain Scale Used: 0-10 Numeric Location: Flank - L Aggravating Factor(s): Nothing Alleviating Factor(s): Nothing Associated Signs And Symptoms: Negative: Nausea, Vomiting - Allergies/Home Medications Allergies/Adverse Reactions: Allergies Allergy/AdvReac Type Severity Reaction Status Date / Time Metronidazole [From Flagyl] AdvReac Nausea And Verified 11/24/16 13:13 Vomiting PMH/Surg Hx/FS Hx/Imm Hx Previously Healthy: No Endocrine/Hematology History: Reports: Hx Thyroid Disease - hypothyroid, Hx Anemia - ON IRON SUPPLEMENT Denies: Hx Anticoagulant Therapy, Hx Diabetes Cardiovascular History: Reports: Hx Angina, Hx Coronary Artery Disease - STENT , Hx Hypercholesterolemia, Hx Hypertension, Hx Myocardial Infarction, Other Cardiovascular Problems/Disorders - CARDIAC DISEASE Denies: Hx Congestive Heart Failure, Hx Pacemaker/ICD, Hx Valvular Heart Disease Respiratory History: Reports: Hx Chronic Obstructive Pulmonary Disease (COPD), Other Respiratory Problems/Disorders - ACTIVE SMOKER 2 PPD Denies: Hx Asthma GI History: Reports: Hx Diverticulosis, Hx Gastroesophageal Reflux Disease, Hx Ulcer - gerd, Other GI Disorders - HX OF DIVERTICULOSIS- MONITORING AT PRESENT History: Reports: Hx Kidney Stones - HX OF, Other Problems/Disorders - RENAL DISEASE/INSUFFENCY? Denies: Hx Dialysis, Hx Renal Disease Musculoskeletal History: Denies: Hx Osteoporosis Sensory History: Reports: Hx Cataracts - Bilateral, cataract surgery, Hx Contacts or Glasses, Hx Eye Injury - receiving abx for infection in left eye per pt. 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 COLONOSCOPIES-. CATARACT SX BOTH EYES-. CYST REMOVED FROM RT SHOULDER 1999,. stent placement 2014-[facility] CLEARED FOR UP TO 720G/CM-OK FOR EITHER 1.5 OR 3T-. RIGHT EYE PROSTHESIS-EYES CLEARED ORBIT DX [facility] 12/14/13. September 10 2016 - triple CABG Hx Anesthesia Reactions: No - Immunization History Date of Tetanus Vaccine: Unk Date of Influenza Vaccine: Fall 2012 Infectious Disease History: No Infectious Disease History: Denies: Hx Clostridium Difficile, Hx Hepatitis, Hx Human Immunodeficiency Virus (HIV), Hx of Known/Suspected MRSA, Hx Shingles, Hx Tuberculosis, Traveled Outside the [place] in Last 30 Days - Family History Known Family History: Positive: None - reviewed & noncontributory, Cardiac Disease - Social History Occupation: Retired Lives: With Family Alcohol Use: None Hx Substance Use: No Substance Use Type: Reports: None Hx Tobacco Use: Yes Smoking Status (MU): Heavy Every Day Tobacco Smoker Type: Cigarettes, Cigars Amount Used/How Often: 1ppd (+) Length of Time of Smoking/Using Tobacco: approximate 60yrs Have You Smoked in the Last Year: Yes Review of Systems Negative: Vomiting, Nausea Positive: flank pain All Other Systems Reviewed And Are Negative: Yes Physical Exam - Summary Physical Exam Summary: VITAL SIGNS: Reviewed. GENERAL: Patient is a well-developed and nourished male who is lying comfortable in the stretcher. ~Patient is not in any acute respiratory distress. HEAD AND FACE: Normocephalic and atraumatic. EYES: PERRLA, EOMI x 2, No injected conjunctiva. EARS: Hearing grossly intact. Ear canals and tympanic membranes are WNL. MOUTH: Oropharynx within normal limits. NECK: Supple, trachea is midline, no adenopathy, no JVD. CHEST: Symmetric, no tenderness at palpation LUNGS: Clear to auscultation bilaterally. No wheezing or crackles. CVS: RRR, S1 and S2 present, no murmurs or gallops appreciated. ABDOMEN: Soft. No signs of distention. Positive bowel sounds. No rebound no guarding, and no masses palpated. No abdominal bruit or pulsations. Positive L CVA tenderness. EXTREMITIES: FROM in all major joints, no edema, no cyanosis or clubbing. NEURO: Alert and oriented x 3. No acute neurological deficits. Speech is normal. SKIN: Dry and warm Triage Information Reviewed: Yes Vital Signs On Initial Exam: Initial Vitals Temp Pulse Resp BP Pulse Ox 97.3 F 88 20 150/104 96 06/16/17 08:46 06/16/17 08:46 06/16/17 08:46 06/16/17 08:46 06/16/17 08:46 Vital Signs Reviewed: Yes - [place] Coma Scale Coma Scale Total: 15 Diagnostics - Vital Signs Vital Signs Temp Pulse Resp BP Pulse Ox 06/16/17 09:08 83 96 06/16/17 09:07 142/65 06/16/17 08:46 97.3 F 88 20 150/104 96 - Laboratory Lab Results: Lab Results 06/16/17 06/16/17 06/16/17 Range/Units 09:20 09:20 12:40 WBC 7.2 (3.5-10.8) 10^3/ul RBC 4.89 (4.0-5.4) 10^6/ul Hgb 12.8 L (14.0-18.0) g/dl Hct 39 L (42-52) % MCV 80 (80-94) fL MCH 26 L (27-31) pg MCHC 33 (31-36) g/dl RDW 20 H (10.5-15) % Plt Count 194 (150-450) 10^3/ul MPV 7 L (7.4-10.4) um3 Neut % (Auto) 85.0 H (38-83) % Lymph % (Auto) 7.3 L (25-47) % [place] % (Auto) 5.4 (1-9) % Eos % (Auto) 0.9 (0-6) % Baso % (Auto) 1.4 (0-2) % Absolute Neuts (auto) 6.1 (1.5-7.7) 10^3/ul Absolute Lymphs (auto) 0.5 L (1.0-4.8) 10^3/ul Absolute Monos (auto) 0.4 (0-0.8) 10^3/ul Absolute Eos (auto) 0.1 (0-0.6) 10^3/ul Absolute Basos (auto) 0.1 (0-0.2) 10^3/ul Absolute Nucleated RBC 0 10^3/ul Nucleated RBC % 0 Sodium 134 (133-145) mmol/L Potassium 3.8 (3.5-5.0) mmol/L Chloride 104 (101-111) mmol/L Carbon Dioxide 23 (22-32) mmol/L Anion Gap 7 (2-11) mmol/L BUN 27 H (6-24) mg/dL Creatinine 1.13 (0.67-1.17) mg/dL Est GFR ( Amer) 80.7 (>60) Est GFR (Non-Af Amer) 62.8 (>60) BUN/Creatinine Ratio 23.9 H (8-20) Glucose 188 H (70-100) mg/dL Calcium 8.8 (8.6-10.3) mg/dL Total Bilirubin 0.50 (0.2-1.0) mg/dL AST 18 (13-39) U/L ALT 7 (7-52) U/L Alkaline Phosphatase 87 (34-104) U/L Total Creatine Kinase 148 (10-223) U/L C-Reactive Protein 1.01 (< 5.00) mg/L Total Protein 6.5 (6.4-8.9) g/dL Albumin 3.7 (3.2-5.2) g/dL Globulin 2.8 (2-4) g/dL Albumin/Globulin Ratio 1.3 (1-3) Lipase 67 (11.0-82.0) U/L Urine Color Yellow Urine Appearance Clear Urine pH 6.0 (5-9) Ur Specific [place] 1.010 (1.010-1.030) Urine Protein Negative (Negative) Urine Ketones Negative (Negative) Urine Blood 1+ H (Negative) Urine Nitrate Negative (Negative) Urine Bilirubin Negative (Negative) Urine Urobilinogen Negative (Negative) Ur Leukocyte Esterase Trace H (Negative) Urine WBC (Auto) Trace(0-5/hpf) (Absent) Urine RBC (Auto) 1+(3-5/hpf) H (Absent) Urine Bacteria Absent (Absent) Urine Glucose Negative (Negative) Urine Ascorbic Acid * H (Negative) Result Diagrams: 06/16/17 09:20 06/16/17 09:20 Lab Statement: Any lab studies that have been ordered have been reviewed, and results considered in the medical decision making process. - CT A/P CT Interpretation Completed By: Radiologist - A CT A/P READ BY RADIOLOGIST REVEALS 1. SMALL NONOBSTRUCTING LEFT RENAL CALCULI. 2. MODERATE GASTRIC DISTENTION. 3. 5.8 CM FUSIFORM SHAPED ANEURYSM OF THE MID AND DISTAL ABDOMINAL AORTA SLIGHTLY INCREASED IN SIZE. 4. SMALL AMOUNT OF FREE INTRAPERITONEAL FLUID IN THE PELVIS. ED PHSYICIAN HAS REVIEWED THIS RADIOLOGY REPORT AND AGREES. Abdominal Pain Fem Course/Dx - Course Assessment/Plan: This patient is a 76 year old M [facility] by with a chief complaint of L flank pain that began 2 weeks ago. Pain is constant and worsened [place]. The patient rates the pain 9/10 in severity. Symptoms aggravated by nothing. Symptoms alleviated by nothing. Patient denies nausea and vomiting. PMHx includes kidney stones. In the ED course an IV access was obtained. Patient was placed in a campus monitor. Patient was started with IV fluids. He was given Zofran and Morphine for the pain. Labs without any significant abnormality except for chronic anemia but improved. Glucose 188. Abdominal and pelvic CT IMPRESSION: 1. SMALL NONOBSTRUCTING LEFT RENAL CALCULI. 2. MODERATE GASTRIC DISTENTION. 3. 5.8 CM FUSIFORM SHAPED ANEURYSM OF THE MID AND DISTAL ABDOMINAL AORTA SLIGHTLY INCREASED IN SIZE. 4. SMALL AMOUNT OF FREE INTRAPERITONEAL FLUID IN THE PELVIS. Patient knows about the AAA. He just recently saw Dr. Barboza vascular surgeon and for now they are watching and he has a f/u appointment next month. Patient pain has improved but he unable to urinate. Bladder scan was performed and showe 500 cc of urine. A urinary aranda catheter was placed w/ o complications. Cath UA shows positive leukocytes w/o epithelial cells therefore I believe patient has a UTI. Patient also also has urinary retention therefore he will be discharged with a aranda catheter in place and a leg bag an af/u with urology. Patient was started on ciprofloxacin. In the ED course has been improving and stable. Patient is hemodynamically stable and A+O x 3. - Diagnoses Differential Diagnosis/HQI/PQRI: Constipation, Renal Colic, Ureteral Stone, Urinary Tract Infection Provider Diagnoses: UTI (urinary tract infection), Urinary retention, Flank pain Discharge - Discharge Plan Condition: Stable Disposition: HOME Prescriptions: Ciprofloxacin TAB* [Cipro 500 MG TAB*] 500 mg PO BID #6 tab Patient Education Materials: Urinary Tract Infection in Men (ED), Flank Pain ( ED), Ciprofloxacin (By mouth) Referrals: Kaia Jeffers MD [Primary Care Provider] - Additional Instructions: RETURN TO THE EMERGENCY DEPARTMENT FOR CHANGING OR WORSENING SYMPTOMS. The documentation as recorded by the Julienne melendrez Emily accurately reflects the service I personally performed and the decisions made by me, David Bowen MD.
[2017-06-16 15:10] VITALS: BP 124/58
== END 2017-06-16 15:04 | disposition home or self-care (01) ==
LOC: ED 08:45
DX: N39.0 Urinary tract infection, site not specified (principal); R33.9 Retention of urine, unspecified; R10.32 Left lower quadrant pain; N20.0 Calculus of kidney; Z87.442 Personal history of urinary calculi; I71.4 Abdominal aortic aneurysm, without rupture; E03.9 Hypothyroidism, unspecified; D64.9 Anemia, unspecified; I25.119 Atherosclerotic heart disease of native coronary artery with unspecified angina pectoris; I10 Essential (primary) hypertension; Z95.5 Presence of coronary angioplasty implant and graft; Z95.1 Presence of aortocoronary bypass graft; E78.00 Pure hypercholesterolemia, unspecified; J44.9 Chronic obstructive pulmonary disease, unspecified; K57.90 Diverticulosis of intestine, part unspecified, without perforation or abscess without bleeding; K21.9 Gastro-esophageal reflux disease without esophagitis; H54.61 Unqualified visual loss, right eye, normal vision left eye; Z98.49 Cataract extraction status, unspecified eye; Z85.818 Personal history of malignant neoplasm of other sites of lip, oral cavity, and pharynx; Z88.1 Allergy status to other antibiotic agents; F17.210 Nicotine dependence, cigarettes, uncomplicated
CPT/HCPCS: 36415; 51702; 74176; 80053; 81003; 81015; 82550; 83690; 85025; 86140; 87086; 96361; 96365; 96375; 99283; J0744; J2270; J2405

== ENCOUNTER 2017-06-17 01:57 | Emergency (ER) | payer MEDICARE ==
[2017-06-17] MEDS ORDERED: NS 0.9% 1000 ML* 1,000 ML IV ONE (03:08)
[2017-06-17] MEDS ORDERED: Ondansetron INJ* 2 MG/ML VIAL IV ONE (03:10)
[2017-06-17] MEDS ORDERED: Morphine INJ* 4 MG/ML 1 ML CARPUJECT IV ONE (03:10)
[2017-06-17 03:43] LABS: Hematocrit 38 % (42-52); Mean Corpuscular HGB Conc 32 g/dl (31-36); Mean Corpuscular Hemoglobin 26 pg (27-31); Mean Corpuscular Volume 80 fL (80-94); Mean Platelet Volume 7 um3 (7.4-10.4); Red Blood Count 4.69 10^6/ul (4.0-5.4); Red Cell Distribution Width 20 % (10.5-15); White Blood Count 8.4 10^3/ul (3.5-10.8)
[2017-06-17 03:55] LABS: ALT 7 U/L (7-52); AST 18 U/L (13-39); Albumin 3.5 g/dL (3.2-5.2); Alkaline Phosphatase 79 U/L (34-104); Anion Gap 5 mmol/L (2-11); BUN/Creatinine Ratio 15.5 (8-20); Blood Urea Nitrogen 17 mg/dL (6-24); C Reactive Protein < 1.00 mg/L (< 5.00); CO2 Carbon Dioxide 24 mmol/L (22-32); Calcium 8.8 mg/dL (8.6-10.3); Chloride 106 mmol/L (101-111); EGFR African American 83.3 (>60); EGFR Non-African American 64.7 (>60); Globulin 2.9 g/dL (2-4); Glucose 124 mg/dL (70-100); Lipase 33 U/L (11.0-82.0); Potassium 3.9 mmol/L (3.5-5.0); Sodium 135 mmol/L (133-145); Total Protein 6.4 g/dL (6.4-8.9)
[2017-06-17] MEDS ORDERED: Iohexol 350* (CONTRAST) 500 ML MDV IV ONE (04:21)
[2017-06-17 05:49] LABS: Urine Bacteria Absent (Absent); Urine Bilirubin Negative (Negative); Urine Glucose Negative (Negative); Urine Nitrite Negative (Negative)
[2017-06-17] MEDS ORDERED: Acetaminophen TAB* 325 MG PO ONE (08:53)
--- NOTE | 2017-06-17 09:05 | RAD ---
INDICATION: 76-year-old with left flank pain pain. Known left-sided nephrolithiasis and known 6 cm abdominal aortic aneurysm COMPARISON: CT abdomen pelvis June 16, 2017 TECHNIQUE: Axial source images were obtained from the hemidiaphragms to the symphysis pubis following administration of oral and intravenous contrast. CT angiographic technique was utilized with injection of 94 mL Omnipaque 350. Coronal and sagittal reconstructed images were acquired. 3-D volume rendered images of the aorta were acquired Lung bases: The lung bases are clear. Liver: The liver is normal in size. There are no masses on the early arterial phase enhanced images. There is no ductal dilatation. Gallbladder: There are no calcified gallstones. There is no evidence of wall thickening or pericholecystic fluid. Spleen: The spleen is normal in size. Early arterial phase imaging shows no evidence of a mass. Pancreas: There is no focal pancreatic mass or ductal dilatation. Adrenal glands: There is no evidence of adrenal mass. Kidneys: The kidneys are normal in size and position. There are prompt nephrograms and there is prompt excretion bilaterally. There are no renal parenchymal masses. There is nonobstructive left-sided nephrolithiasis better identified on the noncontrast study from the previous day. Adenopathy: There is no evidence of adenopathy by size criteria. Fluid collections: There is trace intraperitoneal fluid appearing less conspicuous than the study from the previous day. Vessels: There is again an aneurysm of the infrarenal abdominal aorta measuring 5.6 x 5.9 cm in transverse dimensions and 8 cm in cephalocaudal dimension. The aneurysm originates approximately 3 cm below the renal arteries and is associated with circumferential thrombus. There is no direct CT evidence of this aneurysm is leaking The visceral branches arise satisfactorily with an early arterial bifurcation on the right. There are extensive intimal calcifications of the aorta and iliac vessels GI tract: There are no acute CT bowel findings. There is no obstruction. The stomach and small bowel appear normal. The lower GI tract is remarkable for moderate diverticula of the sigmoid colon with suspected mild chronic bowel wall thickening. The cecum, ileocecal valve, and terminal ileum appear normal. The appendix is visualized and appear normal. Pelvic organs: The prostate and seminal vesicles appear normal Bladder: There are no bladder masses. The bladder is distended Abdominal and pelvic soft tissues: There is a fat-containing left inguinal hernia. Osseous structures: There are no acute osseous findings. There is multilevel spondylitic change. Other: None IMPRESSION: 1. 6 cm infrarenal abdominal aortic aneurysm, unchanged. 2. Left-sided nephrolithiasis, unchanged 3. Diverticulosis sigmoid colon, unchanged
[2017-06-17 13:10] VITALS: BP 161/87
--- NOTE | 2017-06-18 14:17 | ED ---
Racheal Mosqueda Alfonso, scribed for Reynaldo Goodman MD on 06/17/17 at 1052 . Progress - Progress Note Progress Note: Per radiologist at [facility], CTA abdomen reveals 1. 6 cm infrarenal abdominal aortic aneurysm, unchanged. 2. Left-sided nephrolithiasis, unchanged 3. diverticulosis sigmoid colon, unchanged. ED physician has reviewed this radiology report and agrees. Consulted Dr. Mitchell (urologist) who scheduled an appointment for tomorrow. Patient reports feeling much better. Discussed plan for discharge and follow up with urology tomorrow. He ran out of tamsulosin a week ago, however, due to close urology follow up and his 2 L urine output, this will not be prescribed today. Patient was kept upright and there was post obstructive diaresis monitoring Course/Dx - Diagnoses Provider Diagnoses: Left flank pain, Noncompliance with medications, Acute urinary retention The documentation as recorded by the Racheal melendrez Alfonso accurately reflects the service I personally performed and the decisions made by , Reynaldo Goodman MD.
== END 2017-06-17 13:11 | disposition home or self-care (01) ==
LOC: ED 01:57
DX: R10.84 Generalized abdominal pain (principal); Z91.14 Patient's other noncompliance with medication regimen; R33.9 Retention of urine, unspecified
CPT/HCPCS: 36415; 72193; 74175; 80053; 81003; 83605; 83690; 85025; 85610; 85730; 86140; 96374; 96375; 99283; A9270-GY; J2270; J2405; Q9967

== ENCOUNTER 2017-08-20 07:19 | Observation (INO) | payer MEDICARE ==
[2017-08-20] MEDS ORDERED: Al Hydrox/Mg Hydrox/Simet LIQ* 30 ML UDC PO ONE (08:36)
[2017-08-20] MEDS ORDERED: Lidocaine 2% VISCOUS* 15 ML UDC PO ONE (08:36)
[2017-08-20 08:46] LABS: Hematocrit 42 % (42-52); Hemoglobin 13.6 g/dl (14.0-18.0); Mean Corpuscular HGB Conc 33 g/dl (31-36); Mean Corpuscular Hemoglobin 28 pg (27-31); Mean Corpuscular Volume 85 fL (80-94); Mean Platelet Volume 7 um3 (7.4-10.4); Red Blood Count 4.88 10^6/ul (4.0-5.4); Red Cell Distribution Width 22 % (10.5-15); White Blood Count 7.5 10^3/ul (3.5-10.8)
[2017-08-20 08:49] LABS: Comments Flag Yes
[2017-08-20 08:50] LABS: Add Diff/Slide Review? Slide Review Added
[2017-08-20 08:56] LABS: Albumin 3.7 g/dL (3.2-5.2); BUN/Creatinine Ratio 24.5 (8-20); EGFR African American 86.9 (>60); EGFR Non-African American 67.6 (>60); Globulin 2.9 g/dL (2-4); Magnesium 1.8 mg/dL (1.9-2.7); Total Bilirubin 0.5 mg/dL (0.2-1.0); Total Protein 6.6 g/dL (6.4-8.9)
[2017-08-20 08:58] LABS: Troponin I 0.01 ng/mL (<0.04)
[2017-08-20 09:12] LABS: Polychromasia 1+
[2017-08-20] MEDS ORDERED: Iohexol 350* (CONTRAST) 500 ML MDV IV ONE (09:45)
[2017-08-20] MEDS ORDERED: Acetaminophen TAB* 325 MG PO PRN (09:54)
[2017-08-20] MEDS ORDERED: Ondansetron INJ* 2 MG/ML VIAL IV PRN (09:54)
[2017-08-20] MEDS ORDERED: Morphine INJ* 2 MG/ML 1 ML SYRINGE (TWO MG - NEW SYRINGE VERSION) IV PRN (09:54)
[2017-08-20] MEDS ORDERED: Al Hydrox/Mg Hydrox/Simet LIQ* 30 ML UDC PO PRN (09:54)
[2017-08-20 10:02] LABS: T4 9.19 mcg/mL (6.09-12.23)
[2017-08-20 10:06] LABS: TSH (Thyroid Stimulating Horm) 4.62 mcIU/mL (0.34-5.60)
--- NOTE | 2017-08-20 11:17 | RAD ---
STUDY: CT angiography of the chest, abdomen and pelvis. INDICATION: Chest pain radiating to the back. Relevant surgical history includes appendectomy. COMPARISON: Most recent CT of the abdomen and pelvis is dated June 16, 2017 and the most recent CT of the chest is dated April 27, 2016. TECHNIQUE: Multidetector CT angiography of the chest, abdomen and pelvis were obtained from the lung apices to the ischial tuberosities after the intravenous injection of 100 mL Omnipaque 350. Reformats were created in the coronal and sagittal planes. 3-D vascular imaging was created from the source images and reviewed as well. ANGIOGRAPHIC FINDINGS: The ascending aorta measures 3.7 cm in diameter and the descending aorta measures 2.7 cm in diameter measured at the level of the right pulmonary artery. There is calcified atherosclerosis of the coronary arteries, aortic ring and arch of the aorta. There is no evidence of dissection or pathologic aneurysmal dilatation of the thoracic aorta. A right coronary artery stent is noted. Again seen is an abdominal aortic aneurysm measuring 5.8 x 5.8 cm in maximum axial dimension. This is unchanged in dimension from the June 16, 2017 CT examination. This is also unchanged from the June 17, 2017 CTA. There is ectatic curvature of the iliac arteries but in-line flow is documented as far as the bilateral common femoral arteries. NON ANGIOGRAPHIC FINDINGS: Chest: The lungs are clear. There are no large pleural effusions. There is no mediastinal or hilar lymphadenopathy. The heart is grossly normal in appearance. Abdomen & Pelvis: The liver, spleen, pancreas and adrenal glands are grossly normal in appearance. The gallbladder is normal. The kidneys are normal in appearance without focal mass, calcification or signs of hydronephrosis. The renal cortices enhance promptly and symmetrically on arterial phase imaging. Evaluation of the gastrointestinal tract is limited without oral contrast. The small and large bowel are not distended. Consistent with the patient's surgical history, the appendix is not visualized. There are numerable rectosigmoid diverticula but no definite focal inflammatory changes characteristic of acute diverticulitis. There is no gross retroperitoneal or mesenteric lymphadenopathy. The pelvic viscera is normal in appearance. A fat-containing left-sided inguinal hernia is noted. Multilevel degenerative changes of the thoracic and lumbar spine includes loss of intervertebral disc height. There is anterior bridging osteophyte formation at the lower thoracic spine extending to the upper lumbar spine. Sternotomy wires are noted. IMPRESSION: 1. Stable abdominal aortic aneurysm without change since the June 17, [address] evidence of acute thoracic aneurysmal dilatation or dissection. 3. Chronic, degenerative and iatrogenic findings described in body the report unlikely to be directly related to the patient's current clinical presentation.
--- NOTE | 2017-08-20 11:27 | RAD ---
INDICATION: Shortness of breath COMPARISON: Chest x-ray dated October 25, 2016 TECHNIQUE: PA and lateral views of the chest were obtained. FINDINGS: Stable postsurgical changes include sternotomy wires and surgical clips overlying the left mediastinum. The heart and mediastinum are normal in size and contour. The lungs are grossly clear. There is no evidence of large pleural effusion. Visualized bones are normal for the patient's age. There is no radiographic evidence of free air beneath the diaphragm IMPRESSION: No radiographic evidence of acute cardiopulmonary disease.
[2017-08-20] MEDS ORDERED: NS 0.9% 1000 ML* 1,000 ML IV ONE (12:15)
[2017-08-20 13:07] LABS: Troponin I 0.01 ng/mL (<0.04)
[2017-08-20 15:18] LABS: Urine Bilirubin Negative (Negative); Urine Glucose Negative (Negative); Urine Nitrite Negative (Negative)
[2017-08-20] MEDS: Heparin VIAL(*) 5000 UNITS/ML VIAL (FIVE THOUSAND) SUBCUT SCH ×2 (15:47→23:24)
[2017-08-20 16:06] LABS: Troponin I 0.01 ng/mL (<0.04)
[2017-08-21] MEDS: Heparin VIAL(*) 5000 UNITS/ML VIAL (FIVE THOUSAND) SUBCUT SCH (05:46)
[2017-08-21 06:05] LABS: Hematocrit 40 % (42-52); Hemoglobin 13.1 g/dl (14.0-18.0); Mean Corpuscular HGB Conc 33 g/dl (31-36); Mean Corpuscular Hemoglobin 28 pg (27-31); Mean Corpuscular Volume 85 fL (80-94); Mean Platelet Volume 7 um3 (7.4-10.4); Red Blood Count 4.71 10^6/ul (4.0-5.4); White Blood Count 7.3 10^3/ul (3.5-10.8)
[2017-08-21 06:14] LABS: Comments Flag Yes
[2017-08-21 06:15] LABS: Red Cell Distribution Width 22 % (10.5-15)
[2017-08-21 06:21] LABS: BUN/Creatinine Ratio 19.8 (8-20); Calcium 8.8 mg/dL (8.6-10.3); EGFR African American 91.9 (>60); EGFR Non-African American 71.4 (>60); Potassium 3.9 mmol/L (3.5-5.0)
[2017-08-21] MEDS ORDERED: Albuterol HFA INHALER* 8 gm MDI INH PRN (07:17)
[2017-08-21] MEDS ORDERED: Nitroglycerin TAB 0.4 MG* 0.4 MG TAB SL PRN (07:17)
[2017-08-21] MEDS ORDERED: Regadenoson* 0.4 MG/5 ML SYRINGE ONE (08:58)
[2017-08-21] MEDS ORDERED: Aminophylline IV* 25 MG/ML 10 ML VIAL ONE (08:59)
[2017-08-21] MEDS ORDERED: Metoprolol Succinate XL TAB* 100 MG PO SCH (09:00)
[2017-08-21] MEDS ORDERED: Omeprazole CAP* 20 MG PO SCH (09:00)
[2017-08-21] MEDS ORDERED: Multivitamins/Minera Areds(NF) 1 CAP CAP PO SCH (09:00)
[2017-08-21] MEDS ORDERED: Lisinopril TAB* 10 MG PO SCH (09:00)
[2017-08-21] MEDS ORDERED: Fluticasone NASAL SPRAY 50MCG* 16 gm SPRAY BTL BOTH NARES SCH (09:00)
[2017-08-21] MEDS ORDERED: Tamsulosin CAP* 0.4 MG PO SCH (09:00)
[2017-08-21] MEDS ORDERED: Atorvastatin* 80 MG TAB PO SCH (09:00)
[2017-08-21] MEDS ORDERED: Levothyroxine TAB* 125 MCG TAB PO SCH (09:00)
[2017-08-21] MEDS ORDERED: Aspirin EC Low Dose* 81 MG TAB.EC PO SCH (09:00)
--- NOTE | 2017-08-21 09:03 | HP ---
HISTORY AND PHYSICAL: DATE OF ADMISSION: 08/20/17 CHIEF COMPLAINT: Upper epigastric pain/palpitations. HISTORY OF PRESENT ILLNESS: Mr. Munoz is a pleasant 76-year-old man accompanied by his , (who is an excellent medical clerk on behalf of the patient), who complains of "palpitations and skipped heartbeats". The patient awoke early and the patient's pulse was elevated and irregular. The patient experienced that again subjectively at 6:30 and the patient was never found to have pulse irregularities once coming into the emergency room. He also complained of high epigastric pain intermittently for the past month along with episodes of diarrhea and nausea several times a day. The patient notes this pain is worse when he eats and reported mild back pain pursuing to UTI several months ago. The patient has been started on Prilosec and apparently taken off the Valium, which he has been on for 40 years. The patient's symptoms have correlated with the cessation of Valium and he raises the possibility that he is withdrawing or somehow dependent on the Valium. Of note , the patient had a triple bypass (CABG) in September 2016 through the [employer]. The patient is currently not experiencing active chest pain. He is referred to the hospitalist service because of the possibility that his epigastric pain is a coronary equivalent and for rule out, which would be appreciated by the patient and his , who are concerned this might be a cardiac problem. PAST MEDICAL HISTORY: 1. Diverticulitis. 2. IBS. 3. Anxiety. 4. No history of atrial fibrillation or atrial arrhythmias. 5. Abdominal aortic aneurysm. 6. Right eye blindness, status post enucleation. 7. Throat cancer, status post radiation therapy, 2009. 8. Hypothyroidism. 9. Active smoking. 10. Hyperlipidemia. 11. Hypertension. 12. COPD. 13. History of diverticulosis. 14. Cataract surgery. 15. History of appendectomy. OUTPATIENT MEDICATIONS: 1. Albuterol inhaler 2 puffs inhaled 4 times daily. 2. Aspirin 81 mg by mouth daily. 3. Atorvastatin 80 mg by mouth daily. 4. Levothyroxine 25 mcg by mouth daily. 5. Lisinopril 20 mg by mouth daily. 6. Metoprolol succinate 100 mg by mouth daily. 7. Mometasone nasal spray, 1 spray both nares once daily. 8. Multivitamin with minerals twice daily. 9. Nitroglycerin 0.4 mg strength sublingually q.5 minutes p.r.n. pain. 10. Omeprazole 40 mg by mouth daily. 11. Tamsulosin/Flomax 0.4 mg by mouth daily. These meds were provided by the patient and his and were verified by the [employer] Coordinator in the emergency room. ALLERGIES: METRONIDAZOLE. FAMILY HISTORY: Mother had pancreatic cancer. SOCIAL HISTORY: The patient has an extensive 100 plus pack-year history, currently still smoking. He denies alcohol use. He is and accompanied by his , Iraida, who is an excellent historian. The patient's code status is confirmed full and Iraida is his emergency contact. REVIEW OF SYSTEMS: A 14-point review of systems was accomplished at the bedside. This is largely negative except for the pertinent positives as mentioned above in the HPI and Past Medical History. PHYSICAL EXAMINATION GENERAL APPEARANCE: Elderly man, appears stated age, sitting in a hospital gurney at 45 degrees, interactive and pleasant. VITAL SIGNS: On admission, respirations 16, irregular, heart rate 70s to 80s and regular (normal sinus rhythm on monitor), afebrile, 95% or higher on room air. HEENT: Oropharynx is clear. Mucous membranes are moist. Anicteric sclerae. NECK: No elevated JVD. No adenopathy appreciated. LUNGS: Clear to auscultation anteriorly and posteriorly. HEART: Regular rate and rhythm. No murmurs, rubs, or gallops appreciated. He has a sternal scar that is reasonably a year old consistent with his history. There is no chest wall tenderness. He does have epigastric tenderness just below his xiphoid process. No other chest wall deformity. No reproducibility of pain on palpation of the chest. ABDOMEN: Soft and nontender except for the epigastric tenderness I described. EXTREMITIES: Without clubbing, cyanosis, or edema. He has got good muscle bulk and 2+ radial pulses. Normal dorsalis pedis and posterior tibialis pulses in his lower extremities. NEUROLOGIC: A and O x3. Cranial nerves are intact. No sensory or motor or proprioception deficiency. PSYCH: Normal affect. No acute anxiety or depression appreciated at this time. ADMISSION DATA: White blood cell count normal at 11.5, hemoglobin 13.6, platelets 195. Blood chemistries generally normal except for an elevated BUN to creatinine ratio at 24.5 and a BUN of 26 and creatinine of 1.06. Magnesium is modestly low at 1.8 (lower limit of normal 1.9). LFTs normal. Troponin initially 0.01 with normal albumin and total protein and TSH and free T4. Urinalysis unremarkable. CT chest, abdomen, and pelvis with contrast showed a stable abdominal aortic aneurysm without change since June 2017. No CT evidence of acute thoracic aneurysmal dilatation or dissection with chronic degenerative findings in the spine, likely unrelated to the patient's clinical presentation. Chest x-ray showed no pulmonary parenchymal disease or normal postoperative appearance pursuing to his CABG. EKG showed no ST or T wave changes. He had multiple PACs and a right bundle branch block pattern that is similar to previous. IMPRESSION: Mr. Munoz is a 76-year-old gentleman, who experiences palpitations, irregular heartbeat (likely related to PACs), and epigastric pain that he is concerned might represent a coronary equivalent. Of reassurance, his initial troponin is normal. His EKG is reassuring in some sense, though not fully reassuring given underlying baseline abnormalities. We will proceed with complete rule out with serial cardiac enzymes and proceed with cardiac stress testing, which will certainly help the patient to be reassured that this is not a coronary problem. CT chest, abdomen, and pelvis is reassuring, this is not thoracic or abdominal aortic disease. Of ongoing concern is the role that his stopping Valium may be playing in this presentation. He thinks that this medication has nicely addressed his symptomatology for years and he is interested in potentially restarting it. I will contact his primary care provider, Dr. Camp, to discuss either an alternate therapy or restarting a lower dose to provide some relief that the patient feels would help him functionally. I will continue outpatient medications as prescribed. The patient's clinical status will determine further steps in his care. For now, he will be on observation status, but this will be reevaluated tomorrow, 08/21/17. [id number]/[facility] #: [id number] [facility]
--- NOTE | 2017-08-21 10:39 | RAD ---
Edited for charges. INDICATION: Chest pain, status post coronary artery bypass surgery. COMPARISON: Comparison is made with a myocardial perfusion study from December. Technique: A single day myocardial perfusion stress study was performed. Initially the resting study was performed. The patient was given an intravenous injection of 10.1 mCi of technetium 99m tetrofosmin and and the heart was imaged in multiple projections. The patient returned later in the day and under the direction of Dr. Patel, the patient was given intervenous injection of Lexiscan. Subsequently the patient was given intravenous injection of 25.2 mCi of technetium 99m tetrofosmin and the heart was imaged in multiple projections. Images were reconstructed in the axial, sagittal and coronal planes and in a 3- D format. The patient was unable to be positioned for the attenuation corrected images limiting the study. FINDINGS: There is septal hypokinesis. The left ventricular ejection fraction is calculated to be 49% and was 70% on the prior study. Review of the images demonstrates mild decreased activity in the inferior wall which appears similar in both the post pharmacologic stress and resting images suggestive of attenuation artifact or infarct and appears similar to the prior study. The t.i.d. ratio was 1.09 which is within normal limits. IMPRESSION: 1. DECREASED ACTIVITY IN THE INFERIOR WALL SUGGESTIVE OF ATTENUATION ARTIFACT LESS LIKELY INFARCT. THERE IS NO EVIDENCE FOR ISCHEMIA. 2. DECREASED LEFT VENTRICULAR EJECTION FRACTION COMPARED WITH THE PRIOR STUDY. ASSESSMENT: Intermediate risk. Based on imaging criteria from ACC/AHA 2002 Guideline Update for the Management of Patients With Chronic Stable Angina Table 23. Noninvasive Risk Stratification. MTDD
[2017-08-21] MEDS ORDERED: Diazepam TAB(*) 5 MG PO ONE (11:42)
--- NOTE | 2017-08-21 11:53 | PN ---
Hospitalist Progress Note Date of Service: 08/21/17 . HOSPITALIST DISCHARGE NOTE: See dc instructions and summary by me. Patient stable for dc dc instructions reviewed with the patient at the bedside. DC patient home today.
[2017-08-21 12:41] VITALS: BP 147/66
== END 2017-08-21 13:45 | disposition home or self-care (01) ==
LOC: ED 07:19 → MEDTELE 09:54
PROVIDERS: ADMIT Internal Medicine; ATTEND Hospitalist
DX: R10.13 Epigastric pain (principal); R00.2 Palpitations; K58.9 Irritable bowel syndrome, unspecified; F41.9 Anxiety disorder, unspecified; H54.40 Blindness, one eye, unspecified eye; Z85.89 Personal history of malignant neoplasm of other organs and systems; E03.9 Hypothyroidism, unspecified; E78.5 Hyperlipidemia, unspecified; I10 Essential (primary) hypertension; J44.9 Chronic obstructive pulmonary disease, unspecified; Z90.49 Acquired absence of other specified parts of digestive tract; Z79.82 Long term (current) use of aspirin; Z79.899 Other long term (current) drug therapy; Z88.1 Allergy status to other antibiotic agents; F17.210 Nicotine dependence, cigarettes, uncomplicated
CPT/HCPCS: 36415; 71020; 71275; 74174; 78452; 80048; 80053; 81003; 82553; 83605; 83735; 84436; 84443; 84484; 85025; 93005; 93017; 96365; 96375; 99283; 99406; A9270-GY; A9502; G0378; J0280; J1644; J2785; Q9967

== ENCOUNTER 2018-01-06 04:07 | Emergency (ER) | payer MEDICARE ==
[2018-01-06 05:42] LABS: Urine Appearance Clear; Urine Blood Negative (Negative); Urine Color Yellow; Urine Ketones Negative (Negative); Urine Protein 1+(30 mg/dL) (Negative); Urine Specific Gravity 1.018 (1.010-1.030); Urine Urobilinogen Negative (Negative)
--- NOTE | 2018-01-06 06:03 | ED ---
Andrey Mosqueda Rebecca, scribed for Yordan Franco MD on 01/06/18 at 0435 . GI/ HPI - HPI Summary HPI Summary: Pt is a 77 y/o M who presents to ED c/o decreased urinary frequency. He has been unable to urinate for about 18 hours. Associated discomfort is ranked 9/10 on triage. Additionally c/o dysuria. PSHx AAA repair - Saturday (3 days ago) at [facility]. PMHx "prostate problems." Urologist is Dr. Mitchell. - History of Current Complaint Chief Complaint: EDUrogenitalProblems Time Seen by Provider: 01/06/18 04:31 Stated Complaint: UNABLE TO URINATE Hx Obtained From: Patient Onset/Duration: Still Present Timing: Lasting Hours - 18 hours Current Severity: Severe Pain Intensity: 9 Associated Signs and Symptoms: Positive: Other: - Urinary retention - Additional Pertinent History Primary Care Physician: DARYC - Allergy/Home Medications Allergies/Adverse Reactions: Allergies Allergy/AdvReac Type Severity Reaction Status Date / Time metronidazole [From Flagyl] Allergy Nausea And Verified 01/06/18 04:12 Vomiting PMH/Surg Hx/FS Hx/Imm Hx Endocrine/Hematology History: Reports: Hx Thyroid Disease - hypothyroid, Hx Anemia - ON IRON SUPPLEMENT Denies: Hx Anticoagulant Therapy, Hx Diabetes Cardiovascular History: Reports: Hx Angina, Hx Coronary Artery Disease - STENT , Hx Hypercholesterolemia, Hx Hypertension, Hx Myocardial Infarction, Other Cardiovascular Problems/Disorders - CARDIAC DISEASE Denies: Hx Congestive Heart Failure, Hx Pacemaker/ICD, Hx Valvular Heart Disease Respiratory History: Reports: Hx Chronic Obstructive Pulmonary Disease (COPD), Other Respiratory Problems/Disorders - ACTIVE SMOKER 2 PPD Denies: Hx Asthma GI History: Reports: Hx Diverticulosis, Hx Gastroesophageal Reflux Disease, Hx Ulcer - gerd, Other GI Disorders - HX OF DIVERTICULOSIS- MONITORING AT PRESENT History: Reports: Hx Kidney Stones - HX OF, Other Problems/Disorders - RENAL DISEASE/INSUFFENCY? Denies: Hx Dialysis, Hx Renal Disease Musculoskeletal History: Reports: Hx Back Problems Denies: Hx Osteoporosis Sensory History: Reports: Hx Cataracts - Bilateral, cataract surgery, Hx Contacts or Glasses, Hx Eye Injury - receiving abx for infection in left eye per pt. 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 COLONOSCOPIES-. CATARACT SX BOTH EYES-. CYST REMOVED FROM RT SHOULDER 1999,. stent placement 2014-XIENCE CLEARED FOR UP TO 720G/CM-OK FOR EITHER 1.5 OR 3T-. RIGHT EYE PROSTHESIS-EYES CLEARED ORBIT DX [facility] 12/14/13. September 10 2016 - triple CABG Hx Anesthesia Reactions: No - Immunization History Date of Tetanus Vaccine: Unk Date of Influenza Vaccine: Fall 2012 Infectious Disease History: No Infectious Disease History: Denies: Hx Clostridium Difficile, Hx Hepatitis, Hx Human Immunodeficiency Virus (HIV), Hx of Known/Suspected MRSA, Hx Shingles, Hx Tuberculosis, Traveled Outside the [place] in Last 30 Days - Family History Known Family History: Positive: Cardiac Disease - Social History Alcohol Use: None Hx Substance Use: No Substance Use Type: Reports: None Hx Tobacco Use: Yes Smoking Status (MU): Heavy Every Day Tobacco Smoker Type: Cigarettes, Cigars Amount Used/How Often: 1ppd (+) Length of Time of Smoking/Using Tobacco: approximate 60yrs Have You Smoked in the Last Year: Yes Review of Systems Negative: Fever Positive: dysuria, frequency - decreased All Other Systems Reviewed And Are Negative: Yes Physical Exam - Summary Physical Exam Summary: VITAL SIGNS: Reviewed. GENERAL: ~Patient is a well-developed and nourished male who is lying comfortable in the stretcher. Patient is not in any acute respiratory distress. HEAD AND FACE: No signs of trauma. No ecchymosis, hematomas or skull depressions. No sinus tenderness. EYES: PERRLA, EOMI x 2, No injected conjunctiva, no nystagmus. EARS: Hearing grossly intact. Ear canals and tympanic membranes are within normal limits. MOUTH: Oropharynx within normal limits. NECK: Supple, trachea is midline, no adenopathy, no JVD, no carotid bruit, no c- spine tenderness, neck with full ROM. CHEST: Symmetric, no tenderness at palpation LUNGS: Clear to auscultation bilaterally. No wheezing or crackles. CVS: Regular rate and rhythm, S1 and S2 present, no murmurs or gallops appreciated. ABDOMEN: Suprapubic tenderness and fullness. No rebound no guarding, and no masses palpated. Bowel sounds are normal. EXTREMITIES: FROM in all major joints, no edema, no cyanosis or clubbing. NEURO: Alert and oriented x 3. No acute neurological deficits. Speech is normal and follows commands. SKIN: Dry and warm Rectal: Enlarged prostate. Triage Information Reviewed: Yes Vital Signs On Initial Exam: Initial Vitals Temp Pulse Resp BP Pulse Ox 98.1 F 99 20 111/70 97 01/06/18 04:09 01/06/18 04:09 01/06/18 04:09 01/06/18 04:09 01/06/18 04:09 Vital Signs Reviewed: Yes Diagnostics - Vital Signs Vital Signs Temp Pulse Resp BP Pulse Ox 01/06/18 04:09 98.1 F 99 20 111/70 97 - Laboratory Lab Statement: Any lab studies that have been ordered have been reviewed, and results considered in the medical decision making process. GIGU Course/Dx - Course Assessment/Plan: Pt is a 77 y/o M who presents to ED c/o decreased urinary frequency, unable to urinate for about 18 hours. Associated discomfort is ranked 9/10 on triage. Additionally c/o dysuria. PSHx AAA repair - Saturday (3 days ago) at [facility]. PMHx "prostate problems." Urologist is Dr. Mitchell. Blood work and UA were done. Aranda catheter was placed. Pt will be D/C to home with Dx of urinary retention and aranda catheter in place with follow up with Dr. Mitchell. He understands and agrees. Allergy noted. - Diagnoses Provider Diagnoses: Aranda catheter in place, Urinary retention Discharge - Sign-Out/Discharge Documenting (check all that apply): Discharge/Admit/Transfer - Discharge - Discharge Plan Condition: Stable Disposition: HOME Patient Education Materials: Urinary Retention in Men (ED), Aranda Catheter Placement and Care (ED) Referrals: Richmond Mitchell MD [Medical Doctor] - (Follow up with Dr. Mitchell today. ) Additional Instructions: RETURN TO EMERGENCY DEPARTMENT FOR ANY RETURNING OR WORSENING SYMPTOMS. The documentation as recorded by the Andrey melendrez Rebecca accurately reflects the service I personally performed and the decisions made by , Yordan Franco MD.
[2018-01-06 06:52] VITALS: BP 118/73
== END 2018-01-06 06:50 | disposition home or self-care (01) ==
LOC: ED 04:07
DX: R33.9 Retention of urine, unspecified (principal); R30.0 Dysuria; F17.210 Nicotine dependence, cigarettes, uncomplicated; Z46.6 Encounter for fitting and adjustment of urinary device; Z85.818 Personal history of malignant neoplasm of other sites of lip, oral cavity, and pharynx
CPT/HCPCS: 51702; 81003; 81015; 99284

== ENCOUNTER 2018-09-19 04:13 | Inpatient (IN) | payer MEDICARE ==
[2018-09-19] MEDS ORDERED: Albuterol 2.5 MG/3 ML NEB.SOL* (0.083%) INH ONE (04:38)
[2018-09-19] MEDS ORDERED: Albuterol/Ipratropium NEB.SOL* Albuterol 2.5 MG/Ipratropium 0.5 MG 3 ML INH ONE (04:38)
[2018-09-19] MEDS ORDERED: methylPREDNISolone 125 MG* 2 ML VIAL IV ONE (04:39)
[2018-09-19] MEDS ORDERED: Levofloxacin 750 MG IVPREMIX(* 750 MG/150 ML BAG IVPB ONE (04:39)
[2018-09-19] MEDS ORDERED: Acetaminophen TAB* 325 MG PO ONE (04:40)
--- NOTE | 2018-09-19 04:44 | ED ---
Influenza-Like Illness - HPI Summary HPI Summary: This patient is a 77 year old M presenting to [facility] accompanied by his with a chief complaint of SOB since 0:00. The patient rates the pain 7/10 in severity. Symptoms aggravated by nothing. Symptoms alleviated by nothing. Patient reports cough, pleuritic chest pain, chills, and myalgias. Patient denies fever. Patient has hx COPD. Patient notes he took 2 tylenol tablets at 21 :00 yesterday. - History of Current Complaint Chief Complaint: EDFluSymptoms Time Seen by Provider: 09/19/18 04:22 Hx Obtained From: Patient Onset/Duration: Sudden Onset, Lasting Hours, Still Present Severity: Mild Associated Signs & Symptoms: Myalgia, Cough - Allergy/Home Medications Allergies/Adverse Reactions: Allergies Allergy/AdvReac Type Severity Reaction Status Date / Time metronidazole [From Flagyl] Allergy Nausea And Verified 09/19/18 04:21 Vomiting PMH/Surg Hx/FS Hx/Imm Hx Endocrine/Hematology History: Reports: Hx Thyroid Disease - hypothyroid, Hx Anemia - ON IRON SUPPLEMENT Denies: Hx Anticoagulant Therapy, Hx Diabetes Cardiovascular History: Reports: Hx Angina, Hx Coronary Artery Disease - STENT , Hx Hypercholesterolemia, Hx Hypertension, Hx Myocardial Infarction, Other Cardiovascular Problems/Disorders - CARDIAC DISEASE Denies: Hx Congestive Heart Failure, Hx Pacemaker/ICD, Hx Valvular Heart Disease Respiratory History: Reports: Hx Chronic Obstructive Pulmonary Disease (COPD), Other Respiratory Problems/Disorders - ACTIVE SMOKER 2 PPD Denies: Hx Asthma GI History: Reports: Hx Diverticulosis, Hx Gastroesophageal Reflux Disease, Hx Ulcer - gerd, Other GI Disorders - HX OF DIVERTICULOSIS- MONITORING AT PRESENT History: Reports: Hx Kidney Stones - HX OF, Other Problems/Disorders - RENAL DISEASE/INSUFFENCY? Denies: Hx Dialysis, Hx Renal Disease Musculoskeletal History: Reports: Hx Back Problems Denies: Hx Osteoporosis Sensory History: Reports: Hx Cataracts - Bilateral, cataract surgery, Hx Contacts or Glasses, Hx Eye Injury - receiving abx for infection in left eye per pt. 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 COLONOSCOPIES-. CATARACT SX BOTH EYES-. CYST REMOVED FROM RT SHOULDER 1999,. stent placement 2014-XIENCE CLEARED FOR UP TO 720G/CM-OK FOR EITHER 1.5 OR 3T-. RIGHT EYE PROSTHESIS-EYES CLEARED ORBIT DX [facility] 12/14/13. September 10 2016 - triple CABG. 09/10/2017- AAA REPAIR Hx Anesthesia Reactions: No - Immunization History Date of Tetanus Vaccine: Unk Date of Influenza Vaccine: Fall 2012 Infectious Disease History: No Infectious Disease History: Denies: Hx Clostridium Difficile, Hx Hepatitis, Hx Human Immunodeficiency Virus (HIV), Hx of Known/Suspected MRSA, Hx Shingles, Hx Tuberculosis, Traveled Outside the [place] in Last 30 Days - Family History Known Family History: Positive: None - reviewed & noncontributory, Cardiac Disease - Social History Alcohol Use: None Hx Substance Use: No Substance Use Type: Reports: None Hx Tobacco Use: Yes Smoking Status (MU): Heavy Every Day Tobacco Smoker Type: Cigarettes, Cigars Amount Used/How Often: 1ppd (+) Length of Time of Smoking/Using Tobacco: approximate 60yrs Have You Smoked in the Last Year: Yes Review of Systems Positive: Chills. Negative: Fever Positive: Chest Pain Positive: Shortness Of Breath, Cough Negative: Vomiting Positive: Myalgia All Other Systems Reviewed And Are Negative: Yes Physical Exam - Summary Physical Exam Summary: VITAL SIGNS: Reviewed. GENERAL: Patient is a well-developed and nourished MALE who is lying comfortable in the stretcher. Patient is not in any acute respiratory distress. HEAD AND FACE: No signs of trauma. No ecchymosis, hematomas or skull depressions. No sinus tenderness. EYES: PERRLA, EOMI x 2, No injected conjunctiva, no nystagmus. EARS: Hearing grossly intact. Ear canals and tympanic membranes are within normal limits. MOUTH: Oropharynx within normal limits. NECK: Supple, trachea is midline, no adenopathy, no JVD, no carotid bruit, no c- spine tenderness, neck with full ROM. CHEST: Symmetric, no tenderness at palpation LUNGS: decreased breath sounds bilaterally. No wheezing or crackles. CVS: Regular rate and rhythm, S1 and S2 present, no murmurs or gallops appreciated. ABDOMEN: Soft, non-tender. No signs of distention. No rebound no guarding, and no masses palpated. Bowel sounds are normal. EXTREMITIES: FROM in all major joints, no edema, no cyanosis or clubbing. NEURO: Alert and oriented x 3. No acute neurological deficits. Speech is normal and follows commands. SKIN: Dry and warm Triage Information Reviewed: Yes Vital Signs On Initial Exam: Initial Vitals Temp Pulse Resp BP Pulse Ox 99.3 F 114 20 184/108 96 09/19/18 04:15 09/19/18 04:15 09/19/18 04:15 09/19/18 04:15 09/19/18 04:15 Vital Signs Reviewed: Yes Diagnostics - Vital Signs Vital Signs Temp Pulse Resp BP Pulse Ox 09/19/18 04:15 99.3 F 114 20 184/108 96 - Laboratory Result Diagrams: 09/19/18 05:45 09/19/18 05:45 Lab Statement: Any lab studies that have been ordered have been reviewed, and results considered in the medical decision making process. - Radiology CXR Radiology Interpretation Completed By: ED Physician - Dr. Franco, pending official report Summary of Radiographic Findings: right basal atelectasis vs infiltrates - EKG 05:30 Cardiac Rate: Tachycardia - at 104 bpm EKG Rhythm: Sinus Tachycardia EKG Comparison: No Significant Change Summary of EKG Findings: sinus tachycardia at 104 bpm with RBBB. Unchanged from previous EKG Flu Symptom Course/Dx - Course Course Of Treatment: This patient is a 77 year old M presenting to [facility] accompanied by his with a chief complaint of SOB since 0:00. The patient rates the pain 7/10 in severity. Symptoms aggravated by nothing. Symptoms alleviated by nothing. Patient reports cough, pleuritic chest pain, chills, and myalgias. Patient denies fever. Patient has hx COPD. Patient notes he took 2 tylenol tablets at 21:00 yesterday. An EKG reveals sinus tachycardia at 104 bpm with RBBB. Unchanged from previous EKG. CXR reveals, per ED physician, right basal atelectasis vs infiltrates. Test results with no significant abnormalities except for elevated WBC. In the ED course the patient was given Tylenol, albuterol, Levaquin, and solu-medrol. We discussed patient care with Dr. Maradiaga and they agreed to admit the patient. Patient will be admitted to [facility]. The patient is agreeable with this plan. - Diagnoses Provider Diagnoses: COPD exacerbation, Pneumonia - Physician Notifications Discussed Care Of Patient With: James Maradiaga Time Discussed With Above Provider: 06:42 Instructed by Provider To: Admit As Inpatient Discharge - Sign-Out/Discharge Documenting (check all that apply): Patient Departure - admit - Discharge Plan Condition: Stable Disposition: ADMITTED TO [facility] Referrals: Linda Camp MD [Primary Care Provider] - - Attestation Statements Document Initiated by Scribe: Yes Documenting Scribe: Karmen Roach Provider For Whom [facility] is Documenting (Include Credential): Yordan Franco MD Scribe Attestation: Karmen Mosqueda, scribed for Yordan Franco MD on 09/19/18 at 0630. Status of Scribe Document: Ready
[2018-09-19 06:06] LABS: ABS Basophils 0.1 10^3/ul (0-0.2); ABS Eosinophils 0 10^3/ul (0-0.6); ABS Lymphocytes 0.1 10^3/ul (1.0-4.8); ABS Monocytes 0.1 10^3/ul (0-0.8); ABS Neutrophils 16.6 10^3/ul (1.5-7.7); ABS Nucleated RBC 0 10^3/ul; Eosinophil % 0.1 %; Hematocrit 45 % (42-52); Hemoglobin 15.3 g/dl (14.0-18.0); Lymphocyte % 0.7 %; Mean Corpuscular HGB Conc 34 g/dl (31-36); Mean Corpuscular Hemoglobin 31 pg (27-31); Mean Corpuscular Volume 91 fL (80-94); Mean Platelet Volume 7.3 fL (7.4-10.4); Nucleated Red Blood Cells % 0; Platelet Count 153 10^3/ul (150-450); Red Blood Count 4.98 10^6/ul (4.00-5.40); Red Cell Distribution Width 17 % (10.5-15); White Blood Count 16.9 10^3/ul (3.5-10.8)
[2018-09-19 06:11] LABS: Activated Partial Thrombo Time 26.6 seconds (26.0-36.3)
[2018-09-19 06:21] LABS: Albumin 3.6 g/dL (3.2-5.2); Albumin/Globulin Ratio 1.2 (1-3); BUN/Creatinine Ratio 22.3 (8-20); C Reactive Protein 8.48 mg/L (<8.01); Calcium 9.3 mg/dL (8.6-10.3); EGFR Non-African American 57.8 (>60); Globulin 3.1 g/dL (2-4); Total Bilirubin 0.6 mg/dL (0.2-1.0); Total Protein 6.7 g/dL (6.4-8.9)
[2018-09-19] MEDS ORDERED: Albuterol HFA INHALER* 8 gm MDI INH PRN (08:05)
[2018-09-19] MEDS ORDERED: Nitroglycerin TAB 0.4 MG* 0.4 MG TAB SL PRN (08:05)
[2018-09-19] MEDS ORDERED: NS 0.9% 1000 ML*IV.FLUID IV ONE (08:11)
--- NOTE | 2018-09-19 08:18 | ADMNOTE ---
Subjective Date of Service: 09/19/18 Interval History: ADMISSION HISTORY AND PHYSICAL EXAM: Allergies Allergy/AdvReac Type Severity Reaction Status Date / Time metronidazole [From Flagyl] Allergy Nausea And Verified 09/19/18 04:21 Vomiting Home Medications Medication Instructions Recorded Confirmed Type Lisinopril TAB* [Prinivil TAB 10 20 mg PO DAILY 10/24/12 09/19/18 History MG*] Mometasone NASAL (NF) [Nasonex 1 spray BOTH NARES QAM 12/12/14 09/19/18 History (NF)] Nitroglycerin TAB 0.4 MG* 0.4 mg SL Q5M PRN 01/20/15 09/19/18 History Albuterol HFA INHALER* [Ventolin 2 puff INH QID PRN 02/02/15 09/19/18 History HFA Inhaler*] Aspirin EC TAB* [Ecotrin EC Low 81 mg PO DAILY 02/02/15 09/19/18 History Dose 81 MG*] Omeprazole CAP (NF) [Prilosec CAP* 40 mg PO DAILY 02/02/15 09/19/18 History 20 MG] Atorvastatin* [Lipitor 80 MG*] 80 mg PO DAILY #30 tab 12/27/15 09/19/18 Rx Metoprolol Succinate XL TAB* 100 mg PO DAILY #30 tab.xl 10/25/16 09/19/18 Rx [Toprol XL TAB*] Levothyroxine TAB* [Synthroid 125 125 mcg PO DAILY 08/20/17 09/19/18 History MCG TAB*] Multiple Vitamins W/ Minerals 1 cap PO BID 08/20/17 09/19/18 History [Preservision Areds 2 + Mu] Tamsulosin CAP* [Flomax CAP*] 0.4 mg PO DAILY 08/20/17 09/19/18 History Diazepam TAB(*) [Valium TAB(*)] 5 mg PO DAILY #30 tab MDD 5 mg 08/21/17 Rx HPI: Patient was in his usual state of health until about [place] when he developed shaking chills. He has a chronic cough with white-yellow sputum which has not changed. No SOB, chest pain. Now feels at his baseline. Family History: Findings - Mother had pancreatic cancer. Social History: Findings - Smoker. Lives with his who is his SDM. She does not smoke. No alcohol abuse. Past Medical History: Findings - R eye enucleation, throat cancer s/p RTX 2010, cataract surgery, appy, HTN, COPD, hypothyroid,s/p graft stent repair AAA, diverticulitis. Review of Systems - Measurements Intake and Output: Intake and Output Last 24 Hours 09/17/18 09/18/18 09/19/18 09/20/18 06:59 06:59 06:59 06:59 Weight 178 lb - Review of Systems Constitutional Symptoms: Negative: Weight Gain, Weight Loss, Weakness, Fatigue, Fever, Night Sweats, Unexplained Falls, Other Dermatology: Positive: Normal HEENT: Positive: Normal Eyes: Positive: Other - s/p enucleation R eye Thyroid: Positive: Primary Hypothyroidism Pulmonary: Positive: Cough, Sputum, COPD Cardiology: Positive: Other - Occ R arm pain Gastroenterology: Positive: Normal Genital - Urinary: Positive: Normal Genitourinary - Male: Positive: Prostatism Endocrinology: Positive: Thyroid Problems Hematologic/Lymphatic: Negative: Anemia, Easy Brusing, Hx Leukemia, Hx Lymphoma, Use of Anticoagulant, Use of Antiplatelet Drugs, Other Neurology: Positive: Normal Psychiatry: Positive: Normal Allergic/Immunologic: Negative: Hx Anaphylaxis, Hx Angioedema, Hx Environmental, Hx Seasonal, Athsma, Hx HIV, Immunocompromise, Swollen Glands LymphNodes, Other Objective Active Medications: Albuterol (Ventolin Hfa Inhaler*) 2 puff INH QID PRN PRN Reason: SOB/WHEEZING Aspirin (Aspirin Ec Tab*) 81 mg PO DAILY [facility] Atorvastatin Calcium (Lipitor*) 80 mg PO DAILY [facility] Diazepam (Valium Tab(*)) 5 mg PO BEDTIME [facility] Enoxaparin Sodium (Lovenox(*)) 40 mg SUBCUT Q24H [facility] Sodium Chloride (Ns 0.9% 1000 Ml*) 1,000 mls @ 100 mls/hr IV PER RATE [facility] Levothyroxine Sodium (Synthroid Tab*) 125 mcg PO DAILY [facility] Lisinopril (Prinivil Tab*) 20 mg PO DAILY [facility] Metoprolol Succinate (Toprol Xl Tab*) 100 mg PO DAILY [facility] Mometasone Furoate (Nasonex (Nf)) 1 spray BOTH NARES QAM [facility] Nicotine (Nicotine Patch 21 Mg/24 Hr*) 1 patch TRANSDERM DAILY [facility] Nitroglycerin (Nitroglycerin Tab 0.4 Mg*) 0.4 mg SL Q5M PRN PRN Reason: PAIN - CHEST Omeprazole (Prilosec Cap*) 40 mg PO DAILY [facility] Tamsulosin HCl (Flomax Cap*) 0.4 mg PO DAILY [facility] Vital Signs - 8 hr 09/19/18 09/19/18 09/19/18 04:15 05:03 05:57 Temperature 99.3 F Pulse Rate 114 105 98 Respiratory 20 18 Rate Blood Pressure 184/108 134/65 (mmHg) O2 Sat by Pulse 96 94 93 Oximetry 09/19/18 09/19/18 06:19 06:28 Temperature Pulse Rate 99 99 Respiratory Rate Blood Pressure 122/58 (mmHg) O2 Sat by Pulse 92 92 Oximetry Oxygen Devices in Use Now: None Appearance: Alert, sitting on the edge of the ED stretcher. In good spirits. Looks comfortable. Mild cough one time during my visit. Eyes: No Scleral Icterus, - - R eye enucleation Neck: NL Appearance and Movements; NL JVP, No Thyroid Enlargement, Masses Respiratory: Symmetrical Chest Expansion and Respiratory Effort, Clear to Percussion, - - diminished BS BL Cardiovascular: NL Sounds; No Murmurs; No JVD, RRR, No Edema, - Abdominal: NL Sounds; No Tenderness; No Distention, No Hepatosplenomegaly, - Extremities: No Edema, No Clubbing, Cyanosis, - Skin: No Rash or Ulcers, No Nodules or Sclerosis, - Neurological: Alert and Oriented x 3, NL Sensation Result Diagrams: 09/19/18 05:45 09/19/18 05:45 Microbiology and Other Data: Microbiology 09/19/18 04:28 Influenza Types A,B Antigen - Final Nasal Specimen received for Influenza A/B Molecular testing Assess/Plan/Problems-Billing Assessment: - Patient Problems (1) Lactic acidosis Current Visit: Yes Status: Acute Code(s): E87.2 - ACIDOSIS SNOMED Code(s) : 09933334 Comment: Lactic acid 2.8 on second measurement, was 1.9 on arrival here. This could be due to dehydration (note creat sl over his baseline), prolonged venous occlusion during phlebotomy or other artifact, or sepsis. Sepsis fluids ordered, repeat lactic acid in 4 hrs. Levofloxacin given in ED 750 mg IV, cefuroxime and azithromycin po to start 09/20 AM. Clinically not pneumonia, suspect viral infection or other infection. Check blood cultures. (2) Tobacco abuse Current Visit: Yes Status: Acute Code(s): Z72.0 - TOBACCO USE SNOMED Code( s): 341395437 Comment: Pt advised to quit smoking and avoid second hand smoke. NRT ordered. Pt only wanted a patch. (3) History of COPD Current Visit: No Status: Chronic Priority: Medium Code(s): Z87.09 - PERSONAL HISTORY OF OTHER DISEASES OF THE RESPIRATORY SYSTEM SNOMED Code(s): 543762258 Comment: Pt only uses MDI at home, same continued here. No wheezing. Received methylprednisolone in ED, will not give any further steroids unless clear indication. (4) History of hypertension Current Visit: No Status: Chronic Priority: Medium Code(s): Z86.79 - PERSONAL HISTORY OF OTHER DISEASES OF THE CIRCULATORY SYSTEM SNOMED Code(s): 690531072 Comment: Continue lisinopril, metoprolol. (5) Prostatism Current Visit: Yes Status: Acute Code(s): N40.0 - BENIGN PROSTATIC HYPERPLASIA WITHOUT LOWER URINRY TRACT SYMP SNOMED Code(s): 20744357 Comment: Continue tamsulosin
[2018-09-19 08:30] LABS: TSH (Thyroid Stimulating Horm) 4.53 mcIU/mL (0.34-5.60)
[2018-09-19] MEDS ORDERED: Lisinopril TAB* 10 MG PO SCH (09:00)
[2018-09-19] MEDS: Enoxaparin(*) 40 MG/0.4 ML SYR SUBCUT SCH (11:00)
[2018-09-19] MEDS: NS 0.9% 1000 ML* 1,000 ML IV SCH ×3 (11:01→21:50)
[2018-09-19] MEDS: Atorvastatin* 80 MG TAB PO SCH (11:12)
[2018-09-19] MEDS: Tamsulosin CAP* 0.4 MG PO SCH (11:13)
[2018-09-19] MEDS: Metoprolol Succinate XL TAB* 100 MG PO SCH (11:13)
[2018-09-19] MEDS: Pantoprazole TAB * 40 MG TAB PO SCH (11:13)
[2018-09-19] MEDS: Aspirin EC TAB* 81 MG TAB.EC PO SCH (11:13)
[2018-09-19] MEDS: Nicotine PATCH 21 MG/24 HR* PATCH TRANSDERM SCH (11:14)
[2018-09-19] MEDS: Fluticasone NASAL SPRAY 50MCG* 16 gm SPRAY BTL BOTH NARES SCH (11:17)
[2018-09-19] MEDS: Levothyroxine TAB* 125 MCG TAB PO SCH (11:21)
[2018-09-19] MEDS: NS 0.9% 1000 ML* 2,000 ML IV ONE ×2 (12:44→13:26)
[2018-09-19 13:30] LABS: Urine Appearance Clear; Urine Bilirubin Negative (Negative); Urine Blood Negative (Negative); Urine Color Yellow; Urine Glucose Negative (Negative); Urine Ketones Negative (Negative); Urine Nitrite Negative (Negative); Urine Protein Negative (Negative); Urine Specific Gravity 1.011 (1.010-1.030); Urine Urobilinogen Negative (Negative)
[2018-09-19] MEDS ORDERED: NS 0.9% 1000 ML* 1,000 ML IV ONE (17:41)
[2018-09-19 20:43] LABS: ABS Basophils 0.1 10^3/ul (0-0.2); ABS Eosinophils 0 10^3/ul (0-0.6); ABS Lymphocytes 0.2 10^3/ul (1.0-4.8); ABS Monocytes 0.6 10^3/ul (0-0.8); ABS Neutrophils 16.7 10^3/ul (1.5-7.7); ABS Nucleated RBC 0 10^3/ul; Eosinophil % 0 %; Hematocrit 40 % (42-52); Hemoglobin 13.2 g/dl (14.0-18.0); Lymphocyte % 1.1 %; Mean Corpuscular HGB Conc 33 g/dl (31-36); Mean Corpuscular Hemoglobin 31 pg (27-31); Mean Corpuscular Volume 93 fL (80-94); Mean Platelet Volume 7.3 fL (7.4-10.4); Nucleated Red Blood Cells % 0; Platelet Count 134 10^3/ul (150-450); Red Blood Count 4.31 10^6/ul (4.00-5.40); Red Cell Distribution Width 17 % (10.5-15); White Blood Count 17.6 10^3/ul (3.5-10.8)
[2018-09-19 21:07] LABS: BUN/Creatinine Ratio 26.9 (8-20); Blood Urea Nitrogen 28 mg/dL (6-24); CO2 Carbon Dioxide 20 mmol/L (22-32); Calcium 8.4 mg/dL (8.6-10.3); Chloride 111 mmol/L (101-111); EGFR Non-African American 68.9 (>60); Glucose 137 mg/dL (70-100); Sodium 137 mmol/L (135-145)
[2018-09-19] MEDS: Diazepam TAB(*) 5 MG PO SCH (21:09)
[2018-09-19 21:55] LABS: Anion Gap 6 mmol/L (2-11)
--- NOTE | 2018-09-19 22:45 | PN ---
Hospitalist Progress Note Date of Service: 09/19/18 Called by RN - blood culture growing Gram negative bacilli / bottles. Will add Cefepime.
[2018-09-19] MEDS: Cefepime 1 GM in Dextrose(*) 1 GM/50 ML BAG IV SCH (23:27)
[2018-09-20] MEDS: NS 0.9% 1000 ML* 1,000 ML IV SCH ×4 (00:10→23:33)
[2018-09-20] MEDS ORDERED: Melatonin 3 MG TAB PO PRN (00:28)
[2018-09-20 07:06] LABS: Hematocrit 37 % (42-52); Hemoglobin 12.5 g/dl (14.0-18.0); Mean Corpuscular HGB Conc 34 g/dl (31-36); Mean Corpuscular Hemoglobin 31 pg (27-31); Mean Corpuscular Volume 91 fL (80-94); Mean Platelet Volume 7.3 fL (7.4-10.4); Platelet Count 112 10^3/ul (150-450); Red Blood Count 4.04 10^6/ul (4.00-5.40); Red Cell Distribution Width 18 % (10.5-15); White Blood Count 11.2 10^3/ul (3.5-10.8)
[2018-09-20 07:16] LABS: ABS Basophils 0 10^3/ul (0-0.2); ABS Eosinophils 0 10^3/ul (0-0.6); ABS Lymphocytes 0.2 10^3/ul (1.0-4.8); ABS Monocytes 0.5 10^3/ul (0-0.8); ABS Neutrophils 10.5 10^3/ul (1.5-7.7); ABS Nucleated RBC 0 10^3/ul; Eosinophil % 0 %; Nucleated Red Blood Cells % 0.1
[2018-09-20] MEDS: Levofloxacin 750 MG IVPREMIX(* 750 MG/150 ML BAG IVPB SCH (07:17)
[2018-09-20 07:20] LABS: Calcium 8.3 mg/dL (8.6-10.3); EGFR Non-African American 79.4 (>60)
[2018-09-20] MEDS ORDERED: Lisinopril TAB* 5 MG PO SCH (09:00)
[2018-09-20] MEDS ORDERED: Levofloxacin TAB* 500 MG PO SCH (09:00)
[2018-09-20] MEDS: Levothyroxine TAB* 125 MCG TAB PO SCH (09:25)
[2018-09-20] MEDS: Metoprolol Succinate XL TAB* 100 MG PO SCH (09:25)
[2018-09-20] MEDS: Pantoprazole TAB * 40 MG TAB PO SCH (09:25)
[2018-09-20] MEDS: Fluticasone NASAL SPRAY 50MCG* 16 gm SPRAY BTL BOTH NARES SCH (09:25)
[2018-09-20] MEDS: Atorvastatin* 80 MG TAB PO SCH (09:25)
[2018-09-20] MEDS: Aspirin EC TAB* 81 MG TAB.EC PO SCH (09:25)
[2018-09-20] MEDS: Tamsulosin CAP* 0.4 MG PO SCH (09:25)
[2018-09-20] MEDS: Nicotine PATCH 21 MG/24 HR* PATCH TRANSDERM SCH (09:26)
[2018-09-20] MEDS: Enoxaparin(*) 40 MG/0.4 ML SYR SUBCUT SCH (09:26)
--- NOTE | 2018-09-20 10:37 | PN ---
Subjective Date of Service: 09/20/18 Interval History: Patient has no new complaints. Eating well, no bowel changes. Denies dysuria, has chronic frequency. Sees Dr. Mitchell for BPH. Has h/o diverticulitis, denies abdo pain. No new fevers. Family History: Unchanged from Admission - Mother had pancreatic cancer. Social History: Unchanged from Admission - Smoker. Lives with his who is his SDM. She does not smoke. No alcohol abuse. Past Medical History: Unchanged from Admission - R eye enucleation, throat cancer s/p RTX 2009, cataract surgery, appy, HTN, COPD, hypothyroid,s/p graft stent repair AAA, diverticulitis. Objective Active Medications: Albuterol (Ventolin Hfa Inhaler*) 2 puff INH QID PRN PRN Reason: SOB/WHEEZING Aspirin (Aspirin Ec Tab*) 81 mg PO DAILY [facility] Last Admin: 09/20/18 09:25 Dose: 81 mg Atorvastatin Calcium (Lipitor*) 80 mg PO DAILY [facility] Last Admin: 09/20/18 09:25 Dose: 80 mg Diazepam (Valium Tab(*)) 5 mg PO BEDTIME [facility] Last Admin: 09/19/18 21:09 Dose: 5 mg Enoxaparin Sodium (Lovenox(*)) 40 mg SUBCUT Q24H [facility] Last Admin: 09/20/18 09:26 Dose: 40 mg Fluticasone Propionate (Flonase Nasal Mona 50mcg*) 2 spray BOTH NARES QAM [facility] Last Admin: 09/20/18 09:25 Dose: Not Given Sodium Chloride (Ns 0.9% 1000 Ml*) 1,000 mls @ 150 mls/hr IV PER RATE [facility] Last Admin: 09/20/18 05:29 Dose: 150 mls/hr Cefepime HCl (Maxipime 1 Gm In Dextrose Duplex (*)) 1 gm in 50 mls @ 100 mls/ hr IV Q12H [facility] Last Admin: 09/19/18 23:27 Dose: 100 mls/hr Levofloxacin/Dextrose (Levaquin 750 Mg Ivpremix(*)) 750 mg in 150 mls @ 100 mls /hr IVPB Q24H [facility] Last Admin: 09/20/18 07:17 Dose: 100 mls/hr Levothyroxine Sodium (Synthroid Tab*) 125 mcg PO DAILY [facility] Last Admin: 09/20/18 09:25 Dose: 125 mcg Melatonin (Melatonin) 3 mg PO BEDTIME PRN; Protocol PRN Reason: SLEEP Last Admin: 09/20/18 00:48 Dose: 3 mg Metoprolol Succinate (Toprol Xl Tab*) 100 mg PO DAILY [facility] Last Admin: 09/20/18 09:25 Dose: 100 mg Nicotine (Nicotine Patch 21 Mg/24 Hr*) 1 patch TRANSDERM DAILY [facility] Last Admin: 09/20/18 09:26 Dose: 1 patch Nitroglycerin (Nitroglycerin Tab 0.4 Mg*) 0.4 mg SL Q5M PRN PRN Reason: PAIN - CHEST Pantoprazole Sodium (Protonix Tab (Nf)) 40 mg PO DAILY [facility] Last Admin: 09/20/18 09:25 Dose: 40 mg Tamsulosin HCl (Flomax Cap*) 0.4 mg PO DAILY [facility] Last Admin: 09/20/18 09:25 Dose: 0.4 mg Vital Signs - 8 hr 09/20/18 09/20/18 03:08 07:42 Temperature 36.9 C 36.7 C Pulse Rate 91 80 Respiratory 20 16 Rate Blood Pressure 141/60 152/68 (mmHg) O2 Sat by Pulse 93 100 Oximetry Oxygen Devices in Use Now: None Appearance: alert, no distress Eyes: No Scleral Icterus Ears/Nose/Mouth/Throat: NL Teeth, Lips, Gums Neck: NL Appearance and Movements; NL JVP Respiratory: Symmetrical Chest Expansion and Respiratory Effort, Clear to Auscultation Cardiovascular: NL Sounds; No Murmurs; No JVD, No Edema, - - irregular HR Abdominal: NL Sounds; No Tenderness; No Distention, No Hepatosplenomegaly Extremities: No Edema Neurological: Alert and Oriented x 3 Lines/Tubes/Other Access: Clean, Dry and Intact Peripheral IV Nutrition: Taking PO's Result Diagrams: 09/20/18 06:44 09/20/18 06:44 Additional Lab and Data: Laboratory Tests 09/19/18 09/20/18 04:39 00:53 Lactic Acid 1.9 Influenza A (Rapid) Negative Influenza B (Rapid) Negative Microbiology and Other Data: Microbiology 09/19/18 04:28 Nasal Influenza Types A,B Antigen - Final Specimen received for Influenza A/B Molecular testing 09/19/18 06:11 Blood Venous Aerobic Blood Culture - Preliminary 09/19/18 06:11 Blood Venous Anaerobic Blood Culture - Preliminary Escherichia Coli Escherichia Coli 09/19/18 04:37 Blood Venous Aerobic Blood Culture - Preliminary 09/19/18 04:37 Blood Venous Anaerobic Blood Culture - Preliminary No Growth Day 1 Assess/Plan/Problems-Billing Assessment: 77 year old man admitted with chills, sepsis, found to have E Coli bacteremia. - Patient Problems (1) E coli bacteremia Current Visit: Yes Status: Acute Priority: High Code(s): R78.81 - BACTEREMIA SNOMED Code(s): 904508357480 Comment: - Unclear source, differential includes diverticulitis, prostatitis , liver abscess - less likely endocarditis, osteomyelitis - will have CT abdo/pelvis, need to attain source control - will need 5-7 days IV antibiotics (2) Lactic acidosis Current Visit: Yes Status: Acute Priority: Medium Code(s): E87.2 - ACIDOSIS SNOMED Code(s): 85001003 Comment: - lactic acidosis resolved, had sepsis, unclear source, now euvolemic (3) History of COPD Current Visit: No Status: Chronic Priority: Medium Code(s): Z87.09 - PERSONAL HISTORY OF OTHER DISEASES OF THE RESPIRATORY SYSTEM SNOMED Code(s): 899230075 Comment: -Pt only uses MDI at home, same continued here. No wheezing. Stable (4) DVT prophylaxis Current Visit: No Status: Acute Priority: Low Onset Date: 12/12/14 Code( s): CJC3654 - SNOMED Code(s): 466156447 Comment: - SC lovenox Status and Disposition: Will need inpatient stay for IV antibiotics
[2018-09-20] MEDS: Cefepime 1 GM in Dextrose(*) 1 GM/50 ML BAG IV SCH ×2 (10:45→22:45)
[2018-09-20] MEDS ORDERED: Iohexol 300* (CONTRAST) 10 ML SDV IV ONE (13:05)
[2018-09-20] MEDS ORDERED: Loperamide CAP* 2 MG PO PRN (13:36)
[2018-09-20] MEDS: Acetaminophen TAB* 325 MG PO PRN (16:56)
[2018-09-20] MEDS: Diazepam TAB(*) 5 MG PO SCH (20:17)
[2018-09-20] MEDS: PTO:Multivitamins/Mins (NF) AREDS2 1 CAP CAP PO SCH (20:18)
[2018-09-21] MEDS: Acetaminophen TAB* 325 MG PO PRN (00:24)
[2018-09-21] MEDS: Levofloxacin 750 MG IVPREMIX(* 750 MG/150 ML BAG IVPB SCH (05:52)
[2018-09-21] MEDS: NS 0.9% 1000 ML* 1,000 ML IV SCH ×2 (05:57→16:59)
[2018-09-21 07:06] LABS: Hematocrit 38 % (42-52); Mean Corpuscular HGB Conc 35 g/dl (31-36); Mean Corpuscular Hemoglobin 31 pg (27-31); Mean Corpuscular Volume 89 fL (80-94); Mean Platelet Volume 7.6 fL (7.4-10.4); Platelet Count 105 10^3/ul (150-450); Red Blood Count 4.22 10^6/ul (4.00-5.40); Red Cell Distribution Width 18 % (10.5-15)
[2018-09-21 07:38] LABS: ABS Basophils 0 10^3/ul (0-0.2); ABS Eosinophils 0 10^3/ul (0-0.6); ABS Neutrophils 5.2 10^3/ul (1.5-7.7); ABS Neutrophils 5.4 10^3/ul (1.5-7.7); Immature Granulocytes 1 % (0-9); Lymphocytes % 5 %; Monocytes % 4 %; Neutrophil % 90 %
[2018-09-21] MEDS: Tamsulosin CAP* 0.4 MG PO SCH (08:48)
[2018-09-21] MEDS: Pantoprazole TAB * 40 MG TAB PO SCH (08:48)
[2018-09-21] MEDS: Aspirin EC TAB* 81 MG TAB.EC PO SCH (08:48)
[2018-09-21] MEDS: Metoprolol Succinate XL TAB* 100 MG PO SCH (08:48)
[2018-09-21] MEDS: Atorvastatin* 80 MG TAB PO SCH (08:48)
[2018-09-21] MEDS: Levothyroxine TAB* 125 MCG TAB PO SCH (08:48)
[2018-09-21] MEDS: Fluticasone NASAL SPRAY 50MCG* 16 gm SPRAY BTL BOTH NARES SCH (08:50)
[2018-09-21] MEDS: Enoxaparin(*) 40 MG/0.4 ML SYR SUBCUT SCH (08:51)
[2018-09-21] MEDS: PTO:Multivitamins/Mins (NF) AREDS2 1 CAP CAP PO SCH ×2 (08:51→21:12)
[2018-09-21] MEDS ORDERED: MULTIVITAMINS AREDS2 PO SCH (09:00)
[2018-09-21] MEDS ORDERED: MINS PO SCH (09:00)
[2018-09-21] MEDS: Cefepime 1 GM in Dextrose(*) 1 GM/50 ML BAG IV SCH ×2 (11:08→21:13)
[2018-09-21] MEDS: Nicotine PATCH 21 MG/24 HR* PATCH TRANSDERM SCH (13:44)
--- NOTE | 2018-09-21 16:13 | PN ---
Subjective Date of Service: 09/21/18 Interval History: No new complaints. Has chronic mild cough. Has effusion LT elbow present for 20 yrs Patient had fever >38 last night. No sore throat, no chest discomfort, no abdo pain, no diarrhea, no dysuria. Family History: Unchanged from Admission - Mother had pancreatic cancer. Social History: Unchanged from Admission - Smoker. Lives with his who is his SDM. She does not smoke. No alcohol abuse. Past Medical History: Unchanged from Admission - R eye enucleation, throat cancer s/p RTX 2009, cataract surgery, appy, HTN, COPD, hypothyroid,s/p graft stent repair AAA, diverticulitis. Objective Active Medications: Acetaminophen (Tylenol Tab*) 650 mg PO Q4H PRN PRN Reason: FEVER/HEADACHE Last Admin: 09/21/18 00:24 Dose: 650 mg Albuterol (Ventolin Hfa Inhaler*) 2 puff INH QID PRN PRN Reason: SOB/WHEEZING Aspirin (Aspirin Ec Tab*) 81 mg PO DAILY [facility] Last Admin: 09/21/18 08:48 Dose: 81 mg Atorvastatin Calcium (Lipitor*) 80 mg PO DAILY [facility] Last Admin: 09/21/18 08:48 Dose: 80 mg Diazepam (Valium Tab(*)) 5 mg PO BEDTIME [facility] Last Admin: 09/20/18 20:17 Dose: 5 mg Enoxaparin Sodium (Lovenox(*)) 40 mg SUBCUT Q24H [facility] Last Admin: 09/21/18 08:51 Dose: 40 mg Fluticasone Propionate (Flonase Nasal [place] 50mcg*) 2 spray BOTH NARES QAM [facility] Last Admin: 09/21/18 08:50 Dose: Not Given Sodium Chloride (Ns 0.9% 1000 Ml*) 1,000 mls @ 150 mls/hr IV PER RATE [facility] Last Admin: 09/21/18 05:57 Dose: 150 mls/hr Cefepime HCl (Maxipime 1 Gm In Dextrose Duplex (*)) 1 gm in 50 mls @ 100 mls/ hr IV Q12H [facility] Last Admin: 09/21/18 11:08 Dose: 100 mls/hr Levothyroxine Sodium (Synthroid Tab*) 125 mcg PO DAILY [facility] Last Admin: 09/21/18 08:48 Dose: 125 mcg Loperamide HCl (Imodium Cap*) 2 mg PO .SEE DIRECTIONS PRN PRN Reason: DIARRHEA Last Admin: 09/20/18 14:06 Dose: 2 mg Melatonin (Melatonin) 3 mg PO BEDTIME PRN; Protocol PRN Reason: SLEEP Last Admin: 09/20/18 00:48 Dose: 3 mg Metoprolol Succinate (Toprol Xl Tab*) 100 mg PO DAILY [facility] Last Admin: 09/21/18 08:48 Dose: 100 mg Multivitamins/Minerals (Preservision Areds 2) 1 cap PO BID [facility] Last Admin: 09/21/18 08:51 Dose: 1 cap Nicotine (Nicotine Patch 21 Mg/24 Hr*) 1 patch TRANSDERM DAILY [facility] Last Admin: 09/21/18 13:44 Dose: Not Given Nitroglycerin (Nitroglycerin Tab 0.4 Mg*) 0.4 mg SL Q5M PRN PRN Reason: PAIN - CHEST Pantoprazole Sodium (Protonix Tab (Nf)) 40 mg PO DAILY [facility] Last Admin: 09/21/18 08:48 Dose: 40 mg Tamsulosin HCl (Flomax Cap*) 0.4 mg PO DAILY [facility] Last Admin: 09/21/18 08:48 Dose: 0.4 mg Selected Entries 09/21/18 07:46 Temperature 36.2 C Pulse Rate 72 Respiratory 16 Rate Blood Pressure 119/74 (mmHg) O2 Sat by Pulse 97 Oximetry Oxygen Devices in Use Now: None Appearance: alert, no distress Eyes: No Scleral Icterus Ears/Nose/Mouth/Throat: NL Teeth, Lips, Gums Neck: NL Appearance and Movements; NL JVP Respiratory: Symmetrical Chest Expansion and Respiratory Effort Cardiovascular: NL Sounds; No Murmurs; No JVD Abdominal: NL Sounds; No Tenderness; No Distention Lymphatic: No Cervical Adenopathy Skin: No Rash or Ulcers Neurological: Alert and Oriented x 3 Lines/Tubes/Other Access: Clean, Dry and Intact Peripheral IV Result Diagrams: 09/21/18 06:08 09/20/18 06:44 Additional Lab and Data: Laboratory Tests 09/21/18 06:08 C-Reactive Protein 69.97 H Microbiology and Other Data: Microbiology 09/19/18 06:11 Blood Venous Aerobic Blood Culture - Final 09/19/18 06:11 Blood Venous Escherichia Coli 09/20/18 06:44 Blood Venous Aerobic Blood Culture - Preliminary 09/20/18 06:44 Blood Venous Anaerobic Blood Culture - Preliminary No Growth Day 1 No Growth Day 1 09/20/18 06:44 Blood Venous Aerobic Blood Culture - Preliminary 09/20/18 06:44 Blood Venous Anaerobic Blood Culture - Preliminary No Growth Day 1 No Growth Day 1 09/19/18 06:11 Blood Venous Anaerobic Blood Culture - Preliminary Escherichia Coli 09/19/18 04:37 Blood Venous Aerobic Blood Culture - Preliminary 09/19/18 04:37 Blood Venous Anaerobic Blood Culture - Preliminary Pseudomonas Aeruginosa Diagnostic Imaging: CT abdo/pelvis: no hepatic abscess, no diverticulitis, no pneumonia lung bases Assess/Plan/Problems-Billing Assessment: 77 year old man admitted with chills, sepsis, found to have E Coli and pseudomonas bacteremia. - Patient Problems (1) E coli bacteremia Current Visit: Yes Status: Acute Priority: High Code(s): R78.81 - BACTEREMIA SNOMED Code(s): 383231759766 Comment: - Unclear source, differential includes , prostatitis, endocarditis , osteomyelitis - will have TTE, need to attain source control - will need 5-7 days IV antibiotics (2) Lactic acidosis Current Visit: Yes Status: Acute Priority: Medium Code(s): E87.2 - ACIDOSIS SNOMED Code(s): 14279268 Comment: - lactic acidosis resolved, had sepsis, unclear source, now euvolemic (3) History of COPD Current Visit: No Status: Chronic Priority: Medium Code(s): Z87.09 - PERSONAL HISTORY OF OTHER DISEASES OF THE RESPIRATORY SYSTEM SNOMED Code(s): 814167233 Comment: -Pt only uses MDI at home, same continued here. No wheezing. Stable (4) DVT prophylaxis Current Visit: No Status: Acute Priority: Low Onset Date: 12/12/14 Code( s): NUN0420 - SNOMED Code(s): 217587171 Comment: - SC lovenox (5) Pseudomonas aeruginosa infection Current Visit: Yes Status: Acute Priority: Medium Code(s): A49.8 - OTHER BACTERIAL INFECTIONS OF UNSPECIFIED SITE SNOMED Code(s): 59777419 Comment: -may have pneumonia, will discuss chest CT w/ Dr. Solorio. -switched levaquin to cipro for pseudomonal coverage Status and Disposition: Will need inpatient stay for IV antibiotics
[2018-09-21] MEDS: Ciprofloxacin 400MG IVPREMIX(* 400 MG/200 ML BAG IVPB SCH (17:03)
[2018-09-21] MEDS: Diazepam TAB(*) 5 MG PO SCH (21:12)
[2018-09-22] MEDS: NS 0.9% 1000 ML* 1,000 ML IV SCH (03:31)
[2018-09-22] MEDS: Ciprofloxacin 400MG IVPREMIX(* 400 MG/200 ML BAG IVPB SCH (04:20)
[2018-09-22] MEDS: Aspirin EC TAB* 81 MG TAB.EC PO SCH (09:05)
[2018-09-22] MEDS: Nicotine PATCH 21 MG/24 HR* PATCH TRANSDERM SCH (09:05)
[2018-09-22] MEDS: Metoprolol Succinate XL TAB* 100 MG PO SCH (09:05)
[2018-09-22] MEDS: Levothyroxine TAB* 125 MCG TAB PO SCH (09:05)
[2018-09-22] MEDS: Atorvastatin* 80 MG TAB PO SCH (09:05)
[2018-09-22] MEDS: Pantoprazole TAB * 40 MG TAB PO SCH (09:05)
[2018-09-22] MEDS: PTO:Multivitamins/Mins (NF) AREDS2 1 CAP CAP PO SCH ×2 (09:05→21:53)
[2018-09-22] MEDS: Tamsulosin CAP* 0.4 MG PO SCH (09:05)
[2018-09-22] MEDS: Enoxaparin(*) 40 MG/0.4 ML SYR SUBCUT SCH (09:07)
[2018-09-22] MEDS: Fluticasone NASAL SPRAY 50MCG* 16 gm SPRAY BTL BOTH NARES SCH (09:07)
--- NOTE | 2018-09-22 11:35 | PN ---
Subjective Date of Service: 09/22/18 Interval History: Patient reports 1 week of RT shoulder/humerus pain. Feels like a deep ache. No other complaints, eating well, no bowel changes. Family History: Unchanged from Admission - Mother had pancreatic cancer. Social History: Unchanged from Admission - Smoker. Lives with his who is his SDM. She does not smoke. No alcohol abuse. Past Medical History: Unchanged from Admission - R eye enucleation, throat cancer s/p RTX 2009, cataract surgery, appy, HTN, COPD, hypothyroid,s/p graft stent repair AAA, diverticulitis. Objective Active Medications: Acetaminophen (Tylenol Tab*) 650 mg PO Q4H PRN PRN Reason: FEVER/HEADACHE Last Admin: 09/21/18 00:24 Dose: 650 mg Albuterol (Ventolin Hfa Inhaler*) 2 puff INH QID PRN PRN Reason: SOB/WHEEZING Amlodipine Besylate (Norvasc Tab*) 2.5 mg PO DAILY [facility] Aspirin (Aspirin Ec Tab*) 81 mg PO DAILY [facility] Last Admin: 09/22/18 09:05 Dose: 81 mg Atorvastatin Calcium (Lipitor*) 80 mg PO DAILY [facility] Last Admin: 09/22/18 09:05 Dose: 80 mg Diazepam (Valium Tab(*)) 5 mg PO BEDTIME [facility] Last Admin: 09/21/18 21:12 Dose: 5 mg Enoxaparin Sodium (Lovenox(*)) 40 mg SUBCUT Q24H [facility] Last Admin: 09/22/18 09:07 Dose: 40 mg Fluticasone Propionate (Flonase Nasal [place] 50mcg*) 2 spray BOTH NARES QAM [facility] Last Admin: 09/22/18 09:07 Dose: 2 spray Sodium Chloride (Ns 0.9% 1000 Ml*) 1,000 mls @ 150 mls/hr IV PER RATE [facility] Last Admin: 09/22/18 03:31 Dose: 150 mls/hr Cefepime HCl (Maxipime 1 Gm In Dextrose Duplex (*)) 1 gm in 50 mls @ 100 mls/ hr IV Q12H [facility] Last Admin: 09/21/18 21:13 Dose: 100 mls/hr Ciprofloxacin/Dextrose (Cipro 400 Mg Ivpremix(*)) 400 mg in 200 mls @ 200 mls/ hr IVPB Q12H [facility] Last Admin: 09/22/18 04:20 Dose: 200 mls/hr Levothyroxine Sodium (Synthroid Tab*) 125 mcg PO DAILY [facility] Last Admin: 09/22/18 09:05 Dose: 125 mcg Loperamide HCl (Imodium Cap*) 2 mg PO .SEE DIRECTIONS PRN PRN Reason: DIARRHEA Last Admin: 09/20/18 14:06 Dose: 2 mg Melatonin (Melatonin) 3 mg PO BEDTIME PRN; Protocol PRN Reason: SLEEP Last Admin: 09/20/18 00:48 Dose: 3 mg Metoprolol Succinate (Toprol Xl Tab*) 100 mg PO DAILY [facility] Last Admin: 09/22/18 09:05 Dose: 100 mg Multivitamins/Minerals (Preservision Areds 2) 1 cap PO BID [facility] Last Admin: 09/22/18 09:05 Dose: 1 cap Nicotine (Nicotine Patch 21 Mg/24 Hr*) 1 patch TRANSDERM DAILY [facility] Last Admin: 09/22/18 09:05 Dose: 1 patch Nitroglycerin (Nitroglycerin Tab 0.4 Mg*) 0.4 mg SL Q5M PRN PRN Reason: PAIN - CHEST Pantoprazole Sodium (Protonix Tab (Nf)) 40 mg PO DAILY [facility] Last Admin: 09/22/18 09:05 Dose: 40 mg Tamsulosin HCl (Flomax Cap*) 0.4 mg PO DAILY [facility] Last Admin: 09/22/18 09:05 Dose: 0.4 mg Vital Signs - 8 hr 09/22/18 09/22/18 07:29 08:00 Temperature 36.7 C Pulse Rate 87 Respiratory 20 20 Rate Blood Pressure 152/71 (mmHg) O2 Sat by Pulse 95 Oximetry Oxygen Devices in Use Now: None Appearance: ambulatory, no distress Eyes: No Scleral Icterus Ears/Nose/Mouth/Throat: Clear Oropharnyx Neck: NL Appearance and Movements; NL JVP Respiratory: Symmetrical Chest Expansion and Respiratory Effort Cardiovascular: NL Sounds; No Murmurs; No JVD Abdominal: NL Sounds; No Tenderness; No Distention Extremities: - - non-tender RT biceps area, FROM Rt shoulder, no erythema, edema Skin: No Rash or Ulcers Neurological: Alert and Oriented x 3 Lines/Tubes/Other Access: Clean, Dry and Intact Peripheral IV Nutrition: Taking PO's Result Diagrams: 09/21/18 06:08 09/20/18 06:44 Additional Lab and Data: Laboratory Tests 09/21/18 09/22/18 06:08 06:54 ESR 27 C-Reactive Protein 69.97 H Microbiology and Other Data: Microbiology 09/19/18 06:11 Blood Venous Aerobic Blood Culture - Final 09/19/18 06:11 Blood Venous Escherichia Coli 09/20/18 06:44 Blood Venous Aerobic Blood Culture - Preliminary 09/20/18 06:44 Blood Venous Anaerobic Blood Culture - Preliminary No Growth Day 1 No Growth Day 1 09/20/18 06:44 Blood Venous Aerobic Blood Culture - Preliminary 09/20/18 06:44 Blood Venous Anaerobic Blood Culture - Preliminary No Growth Day 1 No Growth Day 1 09/19/18 06:11 Blood Venous Anaerobic Blood Culture - Preliminary Escherichia Coli 09/19/18 04:37 Blood Venous Aerobic Blood Culture - Preliminary 09/19/18 04:37 Blood Venous Anaerobic Blood Culture - Preliminary Pseudomonas Aeruginosa Assess/Plan/Problems-Billing Assessment: 77 year old man admitted with chills, sepsis, found to have E Coli and pseudomonas bacteremia. - Patient Problems (1) E coli bacteremia Current Visit: Yes Status: Acute Priority: High Code(s): R78.81 - BACTEREMIA SNOMED Code(s): 712564441034 Comment: - Unclear source, differential includes, prostatitis, pneumonia, endocarditis, osteomyelitis - will have TTE, need to attain source control - will need 5-7 days IV antibiotics - will x-ray RT upper arm, may have osteo. Consider bone scan. (2) Lactic acidosis Current Visit: Yes Status: Acute Priority: Medium Code(s): E87.2 - ACIDOSIS SNOMED Code(s): 60671563 Comment: - lactic acidosis resolved, had sepsis, unclear source, now euvolemic (3) History of COPD Current Visit: No Status: Chronic Priority: Medium Code(s): Z87.09 - PERSONAL HISTORY OF OTHER DISEASES OF THE RESPIRATORY SYSTEM SNOMED Code(s): 630510098 Comment: -No wheezing. Stable (4) DVT prophylaxis Current Visit: No Status: Acute Priority: Low Onset Date: 12/12/14 Code( s): VEP2768 - SNOMED Code(s): 119694262 Comment: - SC lovenox (5) Pseudomonas aeruginosa infection Current Visit: Yes Status: Acute Priority: Medium Code(s): A49.8 - OTHER BACTERIAL INFECTIONS OF UNSPECIFIED SITE SNOMED Code(s): 53924757 Comment: -may have pneumonia, will discuss chest CT w/ Dr. Solorio. -now on cipro for pseudomonal coverage Status and Disposition: Will need inpatient stay for IV antibiotics
[2018-09-22] MEDS: amLODIPine TAB* 5 MG PO SCH (11:37)
[2018-09-22] MEDS: Cefepime 1 GM in Dextrose(*) 1 GM/50 ML BAG IV SCH ×2 (11:38→22:04)
--- NOTE | 2018-09-22 13:42 | CONS ---
CONSULTATION REPORT: DATE OF CONSULT: 09/22/18 REQUESTING PROVIDER: Dr. Dan CONSULTING SERVICE: Infectious disease. REASON FOR CONSULT: Bacteremia. IMPRESSION: 1. Admitted with sudden onset fever, chills, myalgia. Blood cultures on admission 1 of 4 bottles pseudomonas, sensitive to fluoroquinolones and E. coli 2 of 4 bottles sensitive to cefepime, Augmentin, tetracycline but resistant to fluoroquinolones and Bactrim. His followup cultures the following day after dose of antibiotics were negative. CT abdomen and pelvis showed normal gallbladder, no intraabdominal abscess. He does not have the appendix. He has no focal signs or symptoms other than right shoulder pain, which is fairly benign on exam. He does not have any spine tenderness. Differential diagnosis include intraabdominal infection that was not detected on imaging versus aortic graft infection which is benign appearing on CT imaging versus most likely infectious endocarditis given the polymicrobial cultures. There is a possibility that the E. coli is a contaminant as well. 2. Status post aneurysm graft December 2017. 3. Hyperlipidemia. 4. Coronary artery disease, status post bypass. RECOMMENDATIONS: We will continue cefepime, stop ciprofloxacin. He is going to have an echocardiogram tomorrow, we will await those results. Assuming everything is negative, we will plan on 2 weeks' total or cefepime with possible course of oral antibiotics for another week or two afterwards for what so far seems to be an occult infection. HISTORY OF PRESENT ILLNESS: This is a 77-year-old male with abdominal aortic aneurysm graft being done in the spring, who had malaise, fever, chill, diffuse body aches, which brought him to the hospital early Saturday morning. His white count was 17,000, blood cultures taken with 2 of 4 E. coli, 1 of 4 was pseudomonas. Chest x-ray showed no acute process. There is stigmata of COPD. He had a fever on the 09/21/18, none documented on 09/19/18 or 09/20/18 and none since. He has had no abdominal pain. He had some loose stools for day or two here. He has had about a month worth of intermittent right shoulder pain without issues with range of motion. It gets better with [place] and Tylenol. He has had no recent medical procedures in the last few weeks. He has no prosthetic material other than the stent. PAST MEDICAL HISTORY: 1. Aortic abdominal aneurysm, status post stenting December 2017. 2. Tobacco abuse. 3. Hyperlipidemia. 4. Coronary artery disease, status post PCI and coronary artery bypass graft. 5. Hypothyroidism. 6. Hypertension. 7. Gastroesophageal reflux disease. 8. Benign prostatic hypertrophy. ALLERGIES: FLAGYL. MEDICATIONS: 1. Tylenol. 2. Amlodipine. 3. Aspirin. 4. Lipitor. 5. Diazepam at bedtime. 6. Enoxaparin. 7. Levothyroxine. 8. Cefepime 1 g IV every 12 hours. 9. Cipro 400 mg IV every 12 ours. 10. Metoprolol. 11. Melatonin. 12. Multivitamin. 13. Nitroglycerin. 14. Nicotine patch. 15. Pantoprazole. 16. Tamsulosin. FAMILY HISTORY: Mother had pancreatic cancer. SOCIAL HISTORY: He is smoker. Lives with a in [place]. No injection drugs. REVIEW OF SYSTEMS: All negative except 14-point review except as noted above in the history of present illness. PHYSICAL EXAM: Vital Signs: Temperature is 36, heart rate 70, respiratory rate 16, blood pressure 135/70, oxygen saturation is 98% on room air. In general, he is awake, not in distress. Neurologic: He is oriented x3, follows all commands. HEENT: There is no conjunctival hemorrhage. Oropharynx without lesions. The right eye ball is prosthetic. Neck is supple, without mass. Heart is regular rate and rhythm, without murmurs, rubs, or gallops. Lungs are clear to auscultation bilaterally. Abdomen: Soft, nontender, nondistended. There are bowel sounds present. Skin: There is no rash or splinter hemorrhage. Musculoskeletal: There is no spine tenderness to palpation. There is no right shoulder joint effusion or decreased range of motion or tenderness to palpation. There is no other joint synovitis. DIAGNOSTIC STUDIES/LAB DATA: White blood cell count 6, hemoglobin 13, platelets 105. Creatinine is 0.9, CRP 70 up from 8. Influenza PCR negative. Urinalysis negative. Urine culture no growth. Please see impression and recommendations as outlined above. Thank you for asking me to see Mr. Munoz in consultation. [id number]/[facility] #: [id number] [facility]
--- NOTE | 2018-09-22 16:06 | ECHO ---
Patient: DAYNA WOLF V [facility] Rec#: [id number] : 1940 Date: 09/22/2018 Age: 77y Height: 177.8 cm / 70.0 in Weight: 80.29 kg / 177.0 lbs Sex: M BSA: 1.98 Room#: [facility] Admit Date#: 09/20/2018 Type: Inpatient Referring: Peyman Dan MD Reading: Jerel Razo MD Food Operations Manager: Gloria Harrell RDCS CC: Linda Camp MD Transthoracic Echocardiogram Indication: Bacteremia BP: 165/72 HR: 74 Rhythm: NSR Findings History: +blood cultures, smoker,HTN,COPD,hypothyroid, s/p AAA repair. Technical Comments: The study is technically limited due to the patient's smoking history. Completed at 1400. Left Ventricle: The left ventricular chamber size is normal. Mild to moderate concentric left ventricular hypertrophy is observed. Global left ventricular wall motion and contractility are within normal limits. There is normal left ventricular systolic function. The estimated ejection fraction is 55-60%. Abnormal left ventricular diastolic function is observed. Left Atrium: The left atrial chamber size is normal. Right Ventricle: The right ventricular cavity size is normal. The right ventricular global systolic function is normal. Right Atrium: The right atrial cavity size is normal. Aortic Valve: The aortic valve is trileaflet. There is evidence of aortic sclerosis without stenosis. There is no evidence of aortic regurgitation. There is no evidence of aortic stenosis. Mitral Valve: There is mitral annular calcification. There is trace to mild mitral regurgitation. There is no evidence of mitral stenosis. Tricuspid Valve: The tricuspid valve leaflets are normal. There is trace to mild tricuspid regurgitation. There is evidence that pulmonary hypertension may be underestimated. There is no tricuspid stenosis. Pulmonic Valve: The pulmonic valve appears normal. There is mild pulmonic regurgitation. There is no pulmonic stenosis. Pericardium: There is no significant pericardial effusion. A pericardial fat pad is visualized. Aorta: There is no dilatation of the ascending aorta. The aortic arch is not well visualized. There is no dilation of the aortic root. Pulmonary Artery: The main pulmonary artery appears normal. Venous: The venous system is not well visualized. Summary: There are no significant changes when compared to the previous study done on 12/12/17 Conclusions Global left ventricular wall motion and contractility are within normal limits. There is normal left ventricular systolic function. The estimated ejection fraction is 55-60%. The right ventricular global systolic function is normal. There is no evidence of aortic stenosis. There is evidence of aortic sclerosis without stenosis. There is trace to mild mitral regurgitation. There is trace to mild tricuspid regurgitation. There is no significant pericardial effusion. There are no significant changes when compared to the previous study done on 12/12/17 Measurements Name Value Normal Range RVIDd (AP) 2D 3.6 cm (0.9 - 2.6) RVDdMajor (2D) 3.1 cm (2.2 - 4.4) RAd ISD 4CH 6.1 cm (3.4 - 4.9) RA (A4C)W 4.5 cm (2.9 - 4.6) IVSd (2D) 1.1 cm (0.6 - 1) LVPWd (2D) 1.3 cm (0.6 - 1) LVIDd (2D) 4.6 cm (3.6 - 5.4) LVIDs (2D) 2.8 cm - LV FS (2D) 39 % (25 - 45) Aortic Annulus 2.2 cm (1.4 - 2.6) Ao root diameter (2D) 3.4 cm (2.1 - 3.5) Ascending Ao 2.9 cm (2.1 - 3.4) LA dimension (AP) 2D 3.2 cm (2.3 - 3.8) LAd ISD 4CH 6 cm (2.9 - 5.3) LA ISD 4CH W 3.9 cm (2.5 - 4.5) Name Value Normal Range MV E-wave Vmax 0.7 m/sec - MV deceleration time 284 msec - MV A-wave Vmax 0.5 m/sec - MV E:A ratio 0.77 ratio - LV septal e' Vmax 0.07 m/sec - LV lateral e' Vmax 0.08 m/sec - LV E:e' septal ratio 10 ratio - LV E:e' lateral ratio 8.75 ratio - Name Value Normal Range AV Vmax 1.3 m/sec - AV VTI 31 cm - AV peak gradient 6.92 mmHg - AV mean gradient 3.8 mmHg - LVOT diameter 2.4 cm - LVOT Vmax 0.8 m/sec - LVOT VTI 18.6 cm - LVOT peak gradient 2.39 mmHg - LVOT mean gradient 1.25 mmHg - LORI (continuity Vmax) 2.6 cm2 - LORI (continuity VTI) 2.7 cm2 - Name Value Normal Range TR Vmax 2.5 m/sec - TR peak gradient 24 mmHg - RAP 8 mmHg - RVSP 32 mmHg - Name Value Normal Range PV Vmax 0.6 m/sec - PV peak gradient 1.28 mmHg -
[2018-09-22] MEDS: Diazepam TAB(*) 5 MG PO SCH (21:53)
[2018-09-23] MEDS: NS 0.9% 1000 ML* 1,000 ML IV SCH (00:45)
[2018-09-23] MEDS: amLODIPine TAB* 5 MG PO SCH (08:16)
[2018-09-23] MEDS: Pantoprazole TAB * 40 MG TAB PO SCH (08:16)
[2018-09-23] MEDS: Levothyroxine TAB* 125 MCG TAB PO SCH (08:16)
[2018-09-23] MEDS: Atorvastatin* 80 MG TAB PO SCH (08:16)
[2018-09-23] MEDS: Tamsulosin CAP* 0.4 MG PO SCH (08:16)
[2018-09-23] MEDS: Aspirin EC TAB* 81 MG TAB.EC PO SCH (08:16)
[2018-09-23] MEDS: Metoprolol Succinate XL TAB* 100 MG PO SCH (08:16)
[2018-09-23] MEDS: Nicotine PATCH 21 MG/24 HR* PATCH TRANSDERM SCH (08:18)
[2018-09-23] MEDS: Enoxaparin(*) 40 MG/0.4 ML SYR SUBCUT SCH (08:18)
[2018-09-23] MEDS: Fluticasone NASAL SPRAY 50MCG* 16 gm SPRAY BTL BOTH NARES SCH (08:18)
[2018-09-23] MEDS: PTO:Multivitamins/Mins (NF) AREDS2 1 CAP CAP PO SCH (08:18)
[2018-09-23] MEDS: Cefepime 1 GM in Dextrose(*) 1 GM/50 ML BAG IV SCH (10:53)
[2018-09-23] MEDS ORDERED: Cefepime 1 GM in Dextrose(*) 1 GM/50 ML BAG IV SCH (20:00)
[2018-09-23] MEDS ORDERED: Cefepime(*) 1 GM in NS 0.9% 50 ML* 50 ML IVPB ONE (20:30)
[2018-09-23 20:49] VITALS: BP 146/69
--- NOTE | 2018-09-23 21:47 | DS ---
CC: Dr. Camp; Dr. Solorio * DISCHARGE SUMMARY: DATE OF ADMISSION: 09/19/18 DATE OF DISCHARGE: 09/23/18 PRIMARY DIAGNOSIS: Sepsis with polymicrobial bacteremia including Escherichia coli and pseudomonas. SECONDARY DIAGNOSES: 1. Lactic acidosis due to sepsis. 2. History of abdominal aortic aneurysm, stented in 2018. 3. Coronary artery bypass graft in the past. 4. Tobacco abuse. 5. Hyperlipidemia. 6. Hypertension. 7. Hypothyroidism. 8. Gastroesophageal reflux disease. 9. Benign prostatic hypertrophy. 10. Right eye enucleation. MEDICATIONS ON DISCHARGE: 1. Albuterol MDI 2 puffs q.i.d. p.r.n. 2. Aspirin 81 mg p.o. daily. 3. Levothyroxine 125 mcg p.o. daily. 4. Lisinopril 20 mg p.o. daily. 5. Nasonex 1 spray both nostrils daily. 6. Multivitamin 1 tab p.o. b.i.d. 7. Nitroglycerin sublingual 0.4 mg q.5 minutes x3 p.r.n. chest pain. 8. Omeprazole 40 mg p.o. daily. 9. Flomax 0.4 mg p.o. daily. 10. Norvasc 2.5 mg p.o. daily. 11. Lipitor 80 mg p.o. q.h.s. 12. Cefepime 1 g IV q.12 hours, to complete a 14-day course, finishing on 09/03. 13. Diazepam 5 mg p.o. daily p.r.n. anxiety or insomnia. 14. Loperamide 2 mg as needed for diarrhea. 15. Toprol-XL 100 mg p.o. daily. 16. Nicotine patch 21 mg for 24 hours topically daily. HOSPITAL COURSE: The patient presented to the emergency department with shaking chills. He had no particular source of infection such as sore throat, sinusitis, cough, abdominal pain, diarrhea, or dysuria. There was some aching in the right humerus area that led to an x-ray that was negative for any osteolytic lesions. CT abdomen and pelvis looking for source showed no liver abscesses, no diverticulitis. No other source of infection. Chest x-ray on showed probable COPD. No infiltrates. The patient was treated with IV cefepime and he defervesced after 36 hours. He had ciprofloxacin IV added following initial treatment with Levaquin IV due to the pseudomonas. The initial white count was 16.9, devon to 17.6 on the day of admission and then fell to 6 on the date of discharge. Other pertinent laboratory tests include lactic acid of 3.1 on admission which fell to 1.9 in 24 hours. His creatinine was stable. His CRP was 69.97. Urinalysis was negative. Influenza A and B negative. Blood cultures taken on admission showed 1 bottle with aerobic and anaerobic bottles coming positive with E. coli which was sensitive to everything except for ampicillin, Cipro, Levaquin, and sulfa. Another set of bottles had Pseudomonas aeruginosa in the aerobic bottle which was sensitive to everything including cefepime and Cipro, but not sensitive to cefazolin. That same second set of blood cultures also grew Parvimonas micra. The patient was seen by Dr. Solorio of Infectious Disease on the 09/22/2018. She agreed that the patient had adequate search for a source of bacteremia. The patient did have an echocardiogram that showed no vegetations on his valves. The source of this infection still includes a pneumonia, not seen on chest x-ray; intraabdominal infection not detected on imaging, infected aortic graft, infectious endocarditis is also a possibility. The patient also has a right eye that was enucleated in the past. The has been cleaning the prosthesis and she was with us today, there has been no discharge from the eye, so that is unlikely the source of sepsis. The patient will be discharged to home and he will return to this infusion center after PICC line is placed for cefepime q.12 hours to complete a 14-day course. DISPOSITION: To home. ACTIVITY: As tolerated. DIET: Should be low-salt, low-fat. [id number]/[facility] #: [id number] [facility]
== END 2018-09-23 20:45 | disposition home or self-care (01) | DRG 872 ==
LOC: ED 04:13 → MED 08:01 → OBSVTOIN 09-20 10:21 → MED 09-21 11:22
PROVIDERS: ADMIT Internal Medicine; ATTEND Internal Medicine
DX: A41.51 Sepsis due to Escherichia coli [E. coli] (principal); E87.2 Acidosis; A41.52 Sepsis due to Pseudomonas; J44.9 Chronic obstructive pulmonary disease, unspecified; I25.10 Atherosclerotic heart disease of native coronary artery without angina pectoris; I11.9 Hypertensive heart disease without heart failure; Z95.1 Presence of aortocoronary bypass graft; E03.9 Hypothyroidism, unspecified; N40.0 Benign prostatic hyperplasia without lower urinary tract symptoms; B96.5 Pseudomonas (aeruginosa) (mallei) (pseudomallei) as the cause of diseases classified elsewhere; K21.9 Gastro-esophageal reflux disease without esophagitis; Z87.19 Personal history of other diseases of the digestive system; I71.4 Abdominal aortic aneurysm, without rupture; F17.210 Nicotine dependence, cigarettes, uncomplicated; E78.5 Hyperlipidemia, unspecified; S05.7 Avulsion of eye; Z88.8 Allergy status to other drugs, medicaments and biological substances; Z79.82 Long term (current) use of aspirin; Z79.51 Long term (current) use of inhaled steroids; Z79.899 Other long term (current) drug therapy; Z80.0 Family history of malignant neoplasm of digestive organs; Z85.89 Personal history of malignant neoplasm of other organs and systems
CPT/HCPCS: 36415; 71045; 74177; 80048; 80053; 81003; 83605; 83880; 84443; 84484; 85025; 85060; 85610; 85652; 85730; 86140; 87040; 87076; 87077; 87185; 87186; 87205; 93005; 93306; 99284; A9270-GY; G0378; J0692; J0744; J1650; J2930; Q9967

== ENCOUNTER 2019-09-18 09:47 | Day surgery (SDC) | payer MEDICARE ==
[~2019-09-18 09:47] MED LIST: Buffered Lidocaine 1% SYRIN* 1 ML/SYRINGE INTRADERM ONE; Famotidine IV* 10 MG/ML 2 ML (20 mg) IV ONE; Lactated Ringers 1000 ML Bag* 1,000 ML IV SCH; Levalbuterol 0.63MG/3ML NEB* UNIT OF USE INH ONE
[2019-09-18] MEDS ORDERED: Levalbuterol 0.63MG/3ML NEB* UNIT OF USE INH ONE (11:22)
[2019-09-18] MEDS ORDERED: Buffered Lidocaine 1% SYRIN* 1 ML/SYRINGE INTRADERM ONE (11:22)
[2019-09-18] MEDS ORDERED: Famotidine IV* 10 MG/ML 2 ML (20 mg) ONE (11:22)
[2019-09-18] MEDS ORDERED: fentaNYL* 50 MCG/ML 2 ML VIAL (100 MCG VIAL) ONE (11:40)
[2019-09-18] MEDS ORDERED: Lidocaine 2% PF * 5 ML VIAL ONE (11:40)
[2019-09-18] MEDS ORDERED: Ondansetron INJ* 2 MG/ML VIAL ONE (11:40)
[2019-09-18] MEDS ORDERED: Dexamethasone IV* 4 MG/ML 1 ML (4 MG) ONE (11:40)
[2019-09-18] MEDS ORDERED: Propofol* 10 MG/ML 20 ML BTL ONE (11:40)
[2019-09-18] MEDS ORDERED: Midazolam* 1 MG/ML 5 ML VIAL (5 MG) ONE (11:41)
[2019-09-18] MEDS ORDERED: EPINEPHRINE 1 MG/ML 1 ML VIAL ONE ×2 (11:55→13:39)
[2019-09-18] MEDS ORDERED: Oxymetazoline 0.05% NASAL SPR* 15 ML BTL ONE (11:56)
[2019-09-18] MEDS ORDERED: Lidocaine 4% TOPICAL* 50 ML TOP.SOLN ONE (11:56)
[2019-09-18] MEDS ORDERED: fentaNYL* 50 MCG/ML 2 ML VIAL (100 MCG VIAL) IV PRN (12:58)
[2019-09-18] MEDS ORDERED: Ondansetron INJ* 2 MG/ML VIAL IV PRN (12:58)
[2019-09-18] MEDS ORDERED: Naloxone* 0.4 MG/ML 1 ML VIAL IV PRN (12:58)
[2019-09-18] MEDS ORDERED: Levalbuterol 0.63MG/3ML NEB* UNIT OF USE INH PRN (12:58)
[2019-09-18 14:03] VITALS: BP 135/73
[2019-09-18] MEDS ORDERED: Acetaminophen ADULT LIQ* 650 MG/20.3 ML UDC ONE (14:42)
--- NOTE | 2019-09-18 23:31 | OP ---
DATE OF OPERATION: 09/18/19 - [facility] DATE OF : 36 SURGEON: Tushar Mendez MD CLINICAL CYTOPATHOLOGIST: None. ANESTHESIA: General. PRE-OP DIAGNOSIS: Laryngeal neoplasm, unspecified behavior. POST-OP DIAGNOSIS: Laryngeal neoplasm, unspecified behavior. OPERATIVE PROCEDURE: Laryngoscopy with biopsies. ESTIMATED BLOOD LOSS: Negligible. SPECIMENS: Multiple biopsies of the epiglottis to Pathology. 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 Examination in the office revealed exophytic process essentially replacing the epiglottis. Decision was made to bring the patient to operating room for biopsies. He was brought to the operating room. General anesthesia was induced and an oral endotracheal tube was placed. It was placed utilizing a Glidescope for better visualization of larynx. Once the patient was intubated, the table was turned. The patient was draped and time-out was performed. A Nya laryngoscope as well as a sliding sliding Mak laryngoscope were used to perform direct laryngoscopy. The process appeared to be limited to but essentially replacing the entire epiglottis without extension to the false vocal cords or true vocal cords which were mobile and the glottic airway was patent. Multiple biopsies were taken from the epiglottis. These were placed in formalin. There was very little bleeding from the procedure. The patient was then extubated and delivered to PACU in stable condition. [id number]/[facility] #: [id number] MTDD
== END 2019-09-18 14:53 | disposition home or self-care (01) ==
LOC: OR 09:47
PROVIDERS: ATTEND Otolaryngology
DX: C32.1 Malignant neoplasm of supraglottis (principal); I25.10 Atherosclerotic heart disease of native coronary artery without angina pectoris; Z95.1 Presence of aortocoronary bypass graft; Z95.5 Presence of coronary angioplasty implant and graft; J44.9 Chronic obstructive pulmonary disease, unspecified; F17.210 Nicotine dependence, cigarettes, uncomplicated; E78.00 Pure hypercholesterolemia, unspecified; I25.2 Old myocardial infarction; K21.9 Gastro-esophageal reflux disease without esophagitis; E03.9 Hypothyroidism, unspecified
CPT/HCPCS: 88305; 88341; 88342; 88360; A9270-GY; J1100; J2250; J2405; J2704; J3010

== ENCOUNTER 2019-12-12 14:45 | Emergency (ER) | payer MEDICARE ==
--- OUTSIDE RECORDS SUMMARY | 2019-12-12 15:00 | XMS REPORT | Summary of Care ---
:1940 Author Organization [facility] Address [address] [address] Care Team Providers Name Role Phone Linda Camp Primary Care Provider Reason for Visit Reason Comments Other Hypotensive, and o2 sats dropping below 90% Encounter Details Date Type Department Care Team Description 12/07/2019 Office Visit [facility] Zoë, Marimar specified hypotension (Primary Dx); Practice MD Linda Weight loss; [address] SOB (shortness of breath); [place] [address] [place] [address] S/P laryngectomy [phone] Allergies Active Allergy Reactions Severity Noted Date Comments Metronidazole GI Reaction 09/05/2015 documented as of this encounter (statuses as of 12/07/2019) Medications Medication Sig Dispensed Refills Start Date End Date Status nitroglycerin Place 1 Tab 1 Bottle 1 12/16/2014 Active (NITROSTAT) 0.4 MG under tongue Sublingual SL Tab EVERY FIVE MINUTES NEEDED for chest pain. atorvastatin (LIPITOR) Take 1 Tab by 30 Tab 11 12/16/2014 Active 80 MG Oral Tab mouth DAILY. Multiple Take by mouth. 0 Active Vitamins-Minerals (PRESERVISION AREDS 2) Oral Cap Omeprazole 40 MG Oral Take 40 mg by 0 Active CAPSULE DELAYED mouth. RELEASE Tamsulosin HCl Take 1 Cap by 60 Cap 3 09/14/2016 Active (FLOMAX) 0.4 MG Oral mouth DAILY. Cap metoprolol (TOPROL XL) Take 1 Tab by 30 Tab 12 09/21/2016 09/21/2020 Active 100 MG Oral TABLET SR mouth DAILY. 24 HRIndications: CAD S/P percutaneous coronary angioplasty Additional Information Patient taking differently: 50 mg Oral DAILY, Reported on 06/03/2019 11:10 AM levothyroxine Take 137 mcg by 0 Active (SYNTHROID) 137 MCG mouth BEFORE Oral Tab BREAKFAST. GABAPENTIN PO Take 300 mg by 0 Active mouth THREE TIMES DAILY. diazepam (VALIUM) 5 MG TAKE 1 TABLET BY 30 Tab 0 Active Oral Tab MOUTH ONCE DAILY 020 NEEDED AT BEDTIME FOR INSOMNIA. MAX DAILY DOSE 5MG. Nutritional Supplements 510 mL Promote QID 0 Active (PROMOTE 240 ML CAN) 020 Oral Liquid Cyanocobalamin (VITAMIN Take 1,000 mcg by 0 Active B-12) 1000 MCG Oral Tab mouth DAILY. bacitracin-polymyxin b by Topical route. 0 Active (POLYSPORIN) 500-38227 020 UNIT/GM Apply externally Ointment albuterol (ACCUNEB) Take 1 Ampule by 0 Active 0.63 MG/3ML Inhalation inhalation. Nebu Soln Aspirin 81 MG Oral Tab Take 81 mg by 0 Discontinued mouth DAILY. 020 (Provider Discontinued) albuterol HFA Take 2 Puffs by 0 Discontinued (PROVENTIL) 108 (90 inhalation EVERY 020 (Therapy Completed) BASE) MCG/ACT FOUR HOURS Inhalation Aero Soln NEEDED. fluticasone (FLONASE) [place] 2 Sprays in 1 Bottle 1 Discontinued 50 MCG/ACT Nasal nose DAILY. 017 020 (Therapy Completed) Suspension Cholecalciferol Take by mouth. 0 Discontinued (VITAMIN D) 2000 units 020 (Patient stopped Oral Cap the medication) Loperamide HCl 2 MG Take by mouth. 0 Discontinued Oral Tab 019 020 (Patient stopped the medication) amLodipine (NORVASC) Take 1 Tab by 30 Tab 5 Discontinued 2.5 MG Oral Tab mouth DAILY. 019 020 (Provider Discontinued) lisinopril (PRINIVIL, TAKE 1 TABLET BY 30 Tab 5 2 Discontinued ZESTRIL) 20 MG Oral Tab MOUTH ONCE DAILY 019 020 (Provider Discontinued) OXYcodone-acetaminophen Take 1 Tab by 0 04/06/2 Discontinued (PERCOCET) 5-325 MG mouth EVERY SIX 020 (Provider Oral Tab HOURS NEEDED Discontinued) (PAIN). 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 HTN (hypertension) 09/04/2016 Coronary artery disease 08/28/2016 Tobacco abuse 08/28/2016 History of recurrent diverticulitis 02/28/2015 Unstable angina 12/14/2014 DDD (degenerative disc disease), lumbar Overview: MRI 01/2016 - multilevel DDD LS spine, moderate spinal stenosis at L4L5 and L3L4 level, multilevel neural foramnal stenosis documented as of this encounter (statuses as of 12/07/2019) Immunizations Name Administration Dates Next Due Influenza (IM) Preservative Free 06/12/2017 Influenza Vaccine 65 Yrs + 06/03/2019 Influenza Vaccine High Dose 07/29/2018 Pneumococcal Conjugate Vaccine 09/20/2009 Pneumococcal Conjugate(13 Valent) 07/20/2014 Td 09/20/2009 ZOSTER (SHINGRIX) VACCINE 07/03/2019 documented as of this encounter Social History Tobacco Use Types Packs/Day Years Used Date Current Every Day Smoker Cigars 0.5 57 Smokeless Tobacco: Never Used Alcohol Use Drinks/Week oz/Week Comments No very rare Sex Assigned at Date Recorded Not on file documented as of this encounter Last Filed Vital Signs Vital Sign Reading Time Taken Comments Blood Pressure 100/50 12/07/2019 3:12 PM EDT Pulse 52 12/07/2019 11:08 AM EDT Temperature 36.4 12/07/2019 11:08 AM EDT C (97.6 F) Respiratory Rate 22 12/07/2019 11:08 AM EDT Oxygen Saturation 97% 12/07/2019 11:08 AM EDT Inhaled Oxygen Concentration - - Weight 76.4 kg (168 lb 8 oz) 12/07/2019 11:08 AM EDT Height 177.8 cm (5' 10") 12/07/2019 11:08 AM EDT Body Mass Index 24.18 12/07/2019 11:08 AM EDT documented in this encounter Patient Instructions Patient InstructionsLinda Camp MD - 12/07/2019 11:00 AM EDT1. Reduce Metoprolol to 25 mg once a day 2. Schedule virtual visit in 1 week documented in this encounter Progress Notes Linda Camp MD - 12/07/2019 11:00 AM EDT Patient: Yamil Munoz Date of Service: 12/07/2019 Subjective: Yamil Munoz is a 78-y.o. male who presents for Chief Complaint Patient presents with ? Other Hypotensive, and o2 sats dropping below 90% Patient comes today with his Undergone Total laryngectomy, Bilateral modified radical neck dissection, Tracheoesophageal puncturewith placement of a voice prosthesis, and Cricopharyngeal myotomy on 11/18/19. Since he came home - he has poor oral intake, poor appetite Patient states that it is painful to swallow. He is drinking Ensure 2-3 times a day. Eats purred food. Lost 6 lb since last visit. Recently was feeling lightheaded, running low BP His Lisinopril and Norvasc were discontinued over the weekend Currently taking Metoprolol 50 mg PO QD BP was low at presentation today. Improved on recheck: 100/50 Also noticed to be bradycardic Also concerns about low Oxygenation Pulse Ox at home around 90% Patient denies chest pains , SOB Past Medical History: Diagnosis Date ? AAA (abdominal aortic aneurysm) (HCC) repair ? Anemia ? Anxiety ? BPH (benign prostatic hyperplasia) Dr. Mitchell ? Carcinoma of epiglottis (HCC) 2006 s/p radiation therapy, Dr. Mendez ? COPD (chronic obstructive pulmonary disease) ([facility]) ? DDD (degenerative disc disease), lumbar MRI 01/2016 - multilevel DDD LS spine, moderate spinal stenosis at L4L5 and L3L4 level, multilevel neural foramnal stenosis ? Diverticulitis Recurrent - at least 6 events ? High cholesterol ? Hypertension ? Hypothyroid ? Tobacco abuse Outpatient Medications as of 12/07/2019 Medication Sig Dispense Refill ? atorvastatin (LIPITOR) 80 MG Oral Tab Take 1 Tab by mouth DAILY. 30 Tab 11 ? bacitracin-polymyxin b (POLYSPORIN) 500-05072 UNIT/GM Apply externally Ointment by Topical route. ? diazepam (VALIUM) 5 MG Oral Tab TAKE 1 TABLET BY MOUTH ONCE DAILY NEEDED AT BEDTIME FOR INSOMNIA. MAX DAILY DOSE 5MG. 30 Tab 0 ? GABAPENTIN PO Take 300 mg by mouth THREE TIMES DAILY. ? levothyroxine (SYNTHROID) 137 MCG Oral Tab Take 137 mcg by mouth BEFORE BREAKFAST. ? metoprolol (TOPROL XL) 100 MG Oral TABLET SR 24 HR Take 1 Tab by mouth DAILY. (Patient taking differently: Take 50 mg by mouth DAILY.) 30 Tab 12 ? Multiple Vitamins-Minerals (PRESERVISION AREDS 2) Oral Cap Take by mouth. ? nitroglycerin (NITROSTAT) 0.4 MG Sublingual SL Tab Place 1 Tab under tongue EVERY FIVE MINUTES NEEDED for chest pain. 1 Bottle 1 ? Nutritional Supplements (PROMOTE 240 ML CAN) Oral Liquid 510 mL Promote QID ? Omeprazole 40 MG Oral CAPSULE DELAYED RELEASE Take 40 mg by mouth. ? Tamsulosin HCl (FLOMAX) 0.4 MG Oral Cap Take 1 Cap by mouth DAILY. 60 Cap 3 No current facility-administered medications on file as of 12/07/2019. Allergies Allergen Reactions ? Flagyl [Metronidazole] GI Reaction Review of Systems: All remaining review of systems was negative. Objective: BP 84/52 (BP Location: Left arm, Patient Position: Sitting) Pulse 52 Temp 97.6 F (36.4 C) (Tympanic) Resp 22 Ht 5' 10" (1.778 m) Wt 168 lb 8 oz (76.4 kg) SpO2 97% BMI 24.18 kg/m2 Pulse ox 98% after ambulation 50 ft GENERAL: alert, fatigued THROAT: lips, mucosa, and tongue normal: teeth and gums normal NECK: supple, symmetrical, tracheostoma LUNGS: clear to auscultation bilaterally HEART: regular rate and rhythm, S1, S2 normal, no murmur, click, rub or gallop EXTREMITIES: no edema EKG: unchanged from previous tracings, normal sinus rhythm, RBBB, PAC's noted. Chest X-ray: no acute findings ICD-9-CM ICD-10-CM 1. Other specified hypotension Likely due to poor oral intake and weight loss Will reduce Metoprolol further 458.8 I95.89 AMBULATORY 12 LEAD EKG (GLOBAL) 2. Weight loss 783.21 R63.4 CBC WITH DIFFERENTIAL 3. SOB (shortness of breath) Doesn't appear to require O2 when awake Consider overnight pulse oxymetry if the concern persists 786.05 R06.02 COMPREHENSIVE METABOLIC PANEL NT PROBNP XR CHEST 2 VIEW PA AND LATERAL (STANDARD) 4. S/P laryngectomy V45.89 Z90.02 Patient Instructions 1. Reduce Metoprolol to 25 mg once a day 2. Schedule virtual visit in 1 week Author: Linda Camp MD documented in this encounter Plan of Treatment Date Type Specialty Care Team Description 12/14/2019 Office Visit Family Practice Linda Camp MD [address] [place] [address] [phone] Name Type Priority Associated Diagnoses Date/Time COMPREHENSIVE METABOLIC Lab Routine SOB (shortness of 12/07/2019 12:27 PM PANEL breath) EDT NT PROBNP Lab Routine SOB (shortness of 12/07/2019 12:27 PM breath) EDT CBC WITH DIFFERENTIAL Lab Routine Weight loss 12/07/2019 12:27 PM EDT Name Type Priority Associated Diagnoses Order Schedule AMBULATORY 12 LEAD EKG EKG Routine Other specified Ordered: 12/07/2019 (GLOBAL) hypotension Health Maintenance Due Date Last Done Comments PNEUMOCOCCAL 65+YRS (2 of 2 - 07/20/2015 07/20/2014, PPSV23) 09/20/2009 DTaP/Tdap/Td Vaccines (2 - 09/20/2019 09/20/2009 Tdap) MEDICARE ANNUAL WELLNESS 11/14/2019 11/13/2018 VISIT DEPRESSION SCREENING 11/11/2020 11/12/2019 FALL RISK ASSESSMENT 11/11/2020 11/12/2019, 11/12/2019 ZOSTER IMMUNIZATION SERIES (2 11/11/2020 07/03/2019 Postponed from 2018 of 2) (Other) INFLUENZA VACCINE Completed 06/03/2019, 07/29/2018, 06/12/2017 HEPATITIS A IMMUNIZATION Aged Out No longer eligible based SERIES on patient's age to complete this topic HPV IMMUNIZATION SERIES Aged Out No longer eligible based on patient's age to complete this topic MENINGOCOCCAL VACCINE IMM Aged Out No longer eligible based on patient's age to complete this topic documented as of this encounter Goals Goal Patient Goal Associated Recent Patient-Stated? Author Type Problems Progress Blood Pressure Blood Pressure 100/50 No Zoë, < 150/90 (12/07/2019 Ln[place], 3:12 PM EDT) Note: This is an individualized treatment (blood pressure) goal for Yamil Munoz: Displayed above (on the left) is your goal for blood pressure control. Your most recent blood pressure is also shown above, on the right. You should try to achieve blood pressures that are lower than your goal listed above (on the left). Smoking Cessation COPD No Austin Villagomez MD Note: This is an individualized treatment (COPD) goal for Yamil Munoz: Quit smoking immediately! Your provider has information and resources that may help you to quit. Lifestyle - Current Smoker Lifestyle Tobacco abuse No Linda Camp MD Note: Smoking Cessation Plan Discussed smoking cessation with patient. Patient readiness to quit:no Discussed smoking cessation plan according to AHRQ guidelines:counseled patient on the risks of tobacco use and advised patient to quit and offered support My Quit Plan: My quit date is set for Notify my friends, family, and co-workers about decision to quit. Will ask for their support and understanding Remove tobacco products from my environment. I will ask people not to smoke around me or in my home. I will anticipate challenges at the beginning and will try not to be discouraged. To remember the benefits of quitting such as improved health, feeling better about myself, saving money, etc. Reducing stressors and avoiding triggers are essential keys to my success Finding ways to distract myself when I have the urge to smoke such as taking a walk, reading, playing a board game, putting together a puzzle, etc. Taking medications as my healthcare provider has advised to help alleviate the urge to smoke. If I am unable to take the medication, I will discuss further with my healthcare provider. Recognize reasons for relapse in my past attempts. What did and did not work for me Consider connecting with group, individual, or telephone counseling Keep immunizations current Lifestyle No Austin Villagomez MD Note: This is an individualized lifestyle goal for Yamil Munoz: Please be sure to keep up-to-date on recommended immunizations. For example, this would include a yearly influenza vaccine. Immunization status can be seen by looking at the Health Maintenance sections of your [facility], Plan of Care, and any After Visit Summaries. Take all prescribed medications as Self-management No Linda Camp MD directed Note: This is an individualized self-management goal for Yamil Munoz: Please take all prescribed medications as directed. 1. Do not skip doses. If you cannot afford your medications, talk with your doctor. 2. Use a pill reminder system such as a pill box if needed. Your pharmacist can help you with this. 3. Contact your Pharmacy 5 days before your medication runs out. If you cannot take your medications for any reasons, talk with your doctor. 4. Please bring all of your medication bottles and inhalers (or a list of all your medications/inhalers) with you to every visit. Potential barriers to meeting all of your care plan goals will continue to be addressed on an ongoing basis. documented as of this encounter Implants Implanted Type Area Heel Boom Operator Device Shelf Model / Identifier Expiration Serial / Date Lot 3.01/17 Esperanza Shields - [id number] N/A: RCA [id number] / Implanted: Qty: 1 on 12/15/2014 by Shaun Guzman MD at [facility] [id number] / [id number] documented as of this encounter Procedures Procedure Name Priority Date/Time Associated Diagnosis Comments XR CHEST 2 VIEW PA Routine 12/07/2019 12:12 PM SOB (shortness of Results for this AND LATERAL EDT breath) procedure are in (STANDARD) the results section. documented in this encounter Results XR CHEST 2 VIEW PA AND LATERAL (STANDARD) (12/07/2019 12:12 PM EDT) Specimen Impressions Performed At No acute cardiopulmonary process is evident. Signed by Karmen Delgado MD on 12/07/2019 12:29 PM Narrative Performed At Procedure(s): XR CHEST 2 VIEW PA AND LATERAL (STANDARD) Date of service: 12/07/2019 12:04 PM Provided clinical information: 78 years, Male, "SOB" Procedure and materials: 2 views of the chest were obtained. Comparison studies: 09/09/19, 05/27/19 Observations: PA and lateral views of the chest were obtained. Tracheostomy tube. The cardiomediastinal silhouette appears within normal limits. Sternotomy wires and mediastinal clips. Lungs are clear of any focal infiltrate or consolidation. No pleural effusions or pneumothorax. Osseous structures are grossly intact. Degenerative changes are noted within the visualized spine. Procedure Note Interface, Rad Results - 12/07/2019 12:31 PM EDT Procedure(s): XR CHEST 2 VIEW PA AND LATERAL (STANDARD) Date of service: 12/07/2019 12:04 PM Provided clinical information: 78 years, Male, "SOB" Procedure and materials: 2 views of the chest were obtained. Comparison studies: 09/09/19, 05/27/19 Observations: PA and lateral views of the chest were obtained. Tracheostomy tube. The cardiomediastinal silhouette appears within normal limits. Sternotomy wires and mediastinal clips. Lungs are clear of any focal infiltrate or consolidation. No pleural effusions or pneumothorax. Osseous structures are grossly intact. Degenerative changes are noted within the visualized spine. IMPRESSION No acute cardiopulmonary process is evident. Signed by Karmen Delgado MD on 12/07/2019 12:29 PM documented in this encounter Visit Diagnoses Diagnosis Other specified hypotension Weight loss Loss of weight SOB (shortness of breath) Shortness of breath S/P laryngectomy Other postprocedural status documented in this encounter Insurance Payer Benefit Plan / Subscriber ID Effective Dates Phone Address Type Group [facility] [id number] 2012-Pres[employer] Medicare TODAYS OPTIONS TODAYS OPTIONS t Advantage Guarantor Name Account Type Relation to Date of Phone Billing Patient Address Yamil Munoz Personal/Family 1940 [phone] [place], [place] (Work) [id number] documented as of this encounter Advance Directives Code Status Date Activated Date Inactivated Comments Full Code 12/14/2014 6:48 PM 12/16/2014 2:56 PM Does patient have decision making capacity? yes Order discussed with: Patient I discussed all options and patient/surrogate requested and agreed to: Other (full)
--- OUTSIDE RECORDS SUMMARY | 2019-12-12 15:00 | XMS REPORT ---
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, disease, unspecified unspecified Essential Essential Diagnosis Active Kari (primary) (primary) 11-25 [place] hypertensio hypertensio RN n n 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 Abdominal 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, aneurysm, 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 Gastro-esop Gastro-esop Diagnosis Active Kari hageal hageal [place] reflux reflux RN disease disease without without esophagitis esophagitis Unspecified Unspecified Diagnosis Active 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, tis, RN unspecified unspecified site site Benign Benign Diagnosis Active Kari prostatic prostatic [place] hyperplasia hyperplasia RN without without lower lower urinary urinary tract tract symptoms symptoms Nicotine Nicotine Diagnosis Active Kari dependence, dependence, [place] cigarettes, cigarettes, RN uncomplicat uncomplicat ed ed FPC FPC Diagnosis Active Kari (current) (current) [place] use of use of RN aspirin aspirin Pain frequent Pain Mgmt Active Deonna pain 11-25 (Kj) 08:45: Verduzco 00 [id number] Respiratory dyspnea Respirator Active Deonna present y 11-25 (Kj) 08:45: Verduzco 00 [id number] Endo/Alex anti-coagul Endo/Alex Resolve 2019-2019-12-02 Deonna ation d 11-25 09:00:00 (Kj) therapy 08:45: Verduzco [id number] Sensory impaired Sensory Active 2020-0 Deonna hearing 11-25 (Kj) 08:45: Verduzco [id number] Integument surgical Integument Active 2020-0 Deonna wound 11-25 (Kj) present 08:45: Verduzco [id number] Integument skin Integument Active 2020-0 Deonna integrity 11-25 (Kj) risk 08:45: Verduzco [id number] Nutrition nutritional Nutrition Active 2019- Deonna restriction 11-25 (Kj) s 08:45: Verduzco [id number] Elimination urinary Eliminatio Resolve 2019-12-02 Deonna incontinenc n d 11-25 09:00:00 (Kj) e 08:45: Verduzco [id number] Neuro confusion Neuro/Emot Active 2019-0 Deonna present ion 11-25 (Kj) 08:45: Verduzco [id number] Neuro impaired Neuro/Emot Active 2019-0 Deonna decision-ma ion 11-25 (Kj) bryce 08:45: Verduzco [id number] Activity ADL Activity Active 2019-0 Deonna assistance 11-25 (Kj) required 08:45: Verduzco [id number] Activity self-care Activity Active 2019-0 Deonna deficit 11-25 (Kj) 08:45: Verduzco [id number] Safety fall risk Safety Resolve 2019-0 2019-12-02 Deonna factor d 11-25 09:00:00 (Kj) present 08:45: Verduzco [id number] Safety risk for Safety Resolve 2019-0 2019-12-02 Deonna hospitaliza d 11-25 09:00:00 (Kj) tion 08:45: Verduzco [id number] Medication oral med Meds Active 2019-0 Deonna assistance 11-25 (Kj) required 08:45: Verduzco [id number] Medication knowledge/s Meds Active 2019-0 Deonna kill 11-25 (Kj) deficit: pt 08:45: Verduzco [id number] Sensory impaired Sensory Active 2019- Kari verbal 4-01 [place] communicati 09:00: RN on 00 Safety cannot be Safety Active Kari left alone 12-01 Bonifacionoske 09:00: RN 00 Medication potential Meds Active Kari clinically 12-01 [place] significant 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 Clinician (SIG) Name Name nitroglycer nitroglycer Yes Galyanova Unknown Unknown in 0.4 mg in 0.4 mg 11-25 [facility] sublingual sublingual na tablet tablet omeprazole omeprazole Yes Galyanova Unknown Unknown 20 mg 20 mg 11-25 [facility] capsule,del capsule,del na ayed ayed release release PreserVisio PreserVisio Yes Galyanova Unknown Unknown n AREDS-2 n AREDS-2 11-25 [facility] 250 mg-200 250 mg-200 na unit-40 unit-40 mg-1 mg mg-1 mg capsule capsule tamsulosin tamsulosin Yes Galyanova Unknown Unknown 0.4 mg 0.4 mg 11-25 ,[place] capsule capsule na levothyroxi levothyroxi 2019- Yes Galyanova Unknown Unknown ne 125 mcg ne 125 mcg 11-25 ,[place] capsule capsule na lisinopriL lisinopriL 2019- Yes Galyanova Unknown Unknown 10 mg 10 mg 11-25 ,[place] tablet tablet na metoprolol metoprolol 2019- Yes Galyanova Unknown Unknown succinate succinate 11-25 ,[place] ER 200 mg ER 200 mg na tablet,exte tablet,exte nded nded release 24 release 24 hr hr Aspirin Aspirin Yes Galyanova Unknown Unknown [facility] 11-25 MD,[place] 81 mg 81 mg na chewable chewable tablet tablet atorvastati atorvastati Yes Galyanova Unknown Unknown n 80 mg n 80 mg 11-25 MD,[place] tablet tablet na polymycin polymycin Yes Galyanova Unknown Unknown 11-25 MD,[place] na cholecalcif cholecalcif Yes Galyanova Unknown Unknown mahesh(vitami mahesh(vitami 11-25 MD,[place] n D3) 125 n D3) 125 na mcg (5,000 mcg (5,000 unit) unit) disintegrat disintegrat ing tablet ing tablet cyanocobala cyanocobala Yes Galyanova Unknown Unknown min (vit min (vit 11-25 MD,[place] B) 1,000 B12) 1,000 na mcg tablet mcg tablet diazePAM 5 diazePAM 5 Yes Galyanova Unknown Unknown mg tablet mg tablet 11-25 MD,[place] na gabapentin gabapentin Yes Galyanova Unknown Unknown 300 mg 300 mg 11-25 MD,[place] capsule capsule na Colace Colace Yes Galyanova Unknown Unknown 2-In-1 8.6 2-In-1 8.6 11-25 MD,[place] mg-50 mg mg-50 mg na tablet tablet acetaminoph acetaminoph Yes Galyanova Unknown Unknown en 160 mg/5 en 160 mg/5 11-25 MD,[place] mL oral mL oral na elixir elixir acetaminoph acetaminoph Yes Galyanova Unknown Unknown en 500 mg en 500 mg 11-25 MD,[place] tablet tablet na amLODIPine amLODIPine 2019- Yes Galyanova Unknown Unknown 2.5 mg 2.5 mg 11-25 MD,[place] tablet tablet na levothyroxi levothyroxi Yes Galyanova Unknown Unknown ne 137 mcg ne 137 mcg 12-01 MD,[place] tablet tablet na lisinopriL lisinopriL 2019- Yes Galyanova Unknown Unknown 20 mg 20 mg 12-01- MD,[place] tablet tablet na metoprolol metoprolol Yes Galyanova Unknown Unknown succinate succinate 12-06 MD,[place] ER 25 mg ER 25 mg na tablet,exte tablet,exte nded nded release 24 release 24 hr hr Vital Signs Vital Name Observation Time Observation Value Comments SYSTOLIC mm[Hg] 2019-12-09 18:11:17 118 mm[Hg] mm[Hg] Method: Sit SYSTOLIC mm[Hg] 2019-12-09 18:11:17 90 mm[Hg] mm[Hg] Method: Stand DIASTOLIC mm[Hg] 2019-12-09 18:11:17 68 mm[Hg] mm[Hg] Method: Sit DIASTOLIC mm[Hg] 2019-12-09 18:11:17 54 mm[Hg] mm[Hg] Method: Stand PULSE 2019-12-09 18:11:17 74 /min /min RESP RATE 2019-12-09 18:11:17 16 /min /min TEMP 2019-12-09 18:11:17 98 [degF] Procedures This patient has no known procedures. Results This patient has no known results.
--- OUTSIDE RECORDS SUMMARY | 2019-12-12 15:00 | XMS REPORT ---
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, disease, unspecified unspecified Essential Essential Diagnosis Active Kari (primary) (primary) 11-25 [place] hypertensio hypertensio RN n n 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 hoh hoh coronary coronary artery artery without without angina [...] cigarettes, cigarettes, RN uncomplicat uncomplicat ed ed half-way half-way Diagnosis Active Kari (current) (current) [place] use of use of RN aspirin aspirin Pain frequent Pain Mgmt Active Deonna pain 11-25 (Kj) 08:45: Verduzco 00 [id number] Respiratory dyspnea Respirator Active Deonna present y 11-25 (Kj) 08:45: Verduzco 00 [id number] Endo/Alex anti-coagul Endo/Alex Resolve 2019-2019-12-02 Deonna ation d 11-25 09:00:00 (Kj) therapy 08:45: Verduzco [id number] Sensory impaired Sensory Active 2020-0 Deonna hearing 11-25 (Kj) 08:45: Verduzco [id number] Integument surgical Integument Active 2020-0 Deonna wound 11-25 (Kj) present 08:45: Verduzco [id number] Integument skin Integument Active 2020-0 Deonna integrity 11-25 (Kj) risk 08:45: Verduzco [id number] Nutrition nutritional Nutrition Active 2019- Deonna restriction 11-25 (Kj) s 08:45: Verduzco [id number] Elimination urinary Eliminatio Resolve 2019-12-02 Deonna incontinenc n d 11-25 09:00:00 (Kj) e 08:45: Verduzco [id number] Neuro confusion Neuro/Emot Active 2019-0 Deonna present ion 11-25 (Kj) 08:45: Verduzco [id number] Neuro impaired Neuro/Emot Active 2019-0 Deonna decision-ma ion 11-25 (Kj) bryce 08:45: Verduzco [id number] Activity ADL Activity Active 2019-0 Deonna assistance 11-25 (Kj) required 08:45: Verduzco [id number] Activity self-care Activity Active 2019-0 Deonna deficit 11-25 (Kj) 08:45: Verduzco [id number] Safety fall risk Safety Resolve 2019-0 2019-12-02 Deonna factor d 11-25 09:00:00 (Kj) present 08:45: Verduzco [id number] Safety risk for Safety Resolve 2019-0 2019-12-02 Deonna hospitaliza d 11-25 09:00:00 (Kj) tion 08:45: Verduzco [id number] Medication oral med Meds Active 2019-0 Deonna assistance 11-25 (Kj) required 08:45: Verduzco [id number] Medication knowledge/s Meds Active 2019-0 Deonna kill 11-25 (Kj) deficit: pt 08:45: Verduzco [id number] Sensory impaired Sensory Active 2019- Kari verbal 4-01 [place] communicati 09:00: RN on 00 Safety cannot be Safety Active Kari left alone 12-01 Gilmarske 09:00: RN 00 Medication potential Meds Resolve 2019-12-02 Kari clinically d 12-01 09:00:00 Bonifacionoske significant 09:00: medicine tech 00 issue Musculoskel requires Musculoske Resolve 2019-12-02 Kari etal human letal d 12-01 09:00:00 Harry assist to 09:00: RN leave home 00 Allergies, Adverse Reactions, Alerts Allergy Allergy Type Status Severity Reaction(s) Onset Inactive Treating Comments Name Date Date Clinician yl Medication Active Unknown Nausea 2019-11 Mamie White Name ID [id number] Medications Ordered Filled Start Stop Current Ordering Indication Dosage Frequency Signature Comments Components Medication Medication Date Date Medication? Clinician (SIG) Name Name nitroglycer nitroglycer Yes Galyanova Unknown Unknown in 0.4 mg in 0.4 mg 11-25 [place] POLANCO sublingual sublingual na tablet tablet omeprazole omeprazole Yes Galyanova Unknown Unknown 20 mg 20 mg 11-25 [facility] capsule,del capsule,del na ayed ayed release release PreserVisio PreserVisio Yes Galyanova Unknown Unknown n AREDS-2 n AREDS-2 11-25 [facility] 250 mg-200 250 mg-200 na unit-40 unit-40 mg-1 mg mg-1 mg capsule capsule tamsulosin tamsulosin Yes Galyanova Unknown Unknown 0.4 mg 0.4 mg 11-25 MDJeresy capsule capsule na levothyroxi levothyroxi 2019- Yes Galyanova Unknown Unknown ne 125 mcg ne 125 mcg 11-25 [facility] capsule capsule na lisinopriL lisinopriL 2019- Yes Galyanova Unknown Unknown 10 mg 10 mg 11-25 [facility] tablet tablet na metoprolol metoprolol Yes Galyanova Unknown Unknown succinate succinate 11-25 [place] POLANCO ER 200 mg ER 200 mg na tablet,exte tablet,exte nded nded release 24 release 24 hr hr Aspirin Aspirin Yes Galyanova Unknown Unknown [facility] 11-25 [facility] 81 mg 81 mg na chewable chewable tablet tablet atorvastati atorvastati Yes Galjamal Unknown Unknown n 80 mg n 80 mg 11-25 MD,[place] tablet tablet na polymycin polymycin Yes Galyanova Unknown Unknown 11-25 MD,[place] na cholecalcif cholecalcif Yes Zoë Unknown Unknown mahesh mahesh 11-25 MD,[place] (vitamin (vitamin na D3) 5,000 D3) 5,000 unit unit disintegrat disintegrat ing tablet ing tablet cyanocobala cyanocobala Yes Zoë Unknown Unknown min (vit min (vit 11-25 MD,[place] B-12) 1,000 B12) 1,000 na mcg tablet mcg tablet diazePAM 5 diazePAM 5 Yes Zoë Unknown Unknown mg tablet mg tablet 11-25 MD,[place] na gabapentin gabapentin Yes Zoë Unknown Unknown 300 mg 300 mg 11-25 MD,[place] capsule capsule na Colace Colace Yes Gregoriojamal Unknown Unknown 2-In-1 8.6 2-In-1 8.6 11-25 MD,[place] mg-50 mg mg-50 mg na tablet tablet acetaminoph acetaminoph Yes Galjamal Unknown Unknown en 160 mg/5 en 160 mg/5 11-25 MD,[place] mL oral mL oral na elixir elixir acetaminoph acetaminoph Yes Zoë Unknown Unknown en 500 mg en 500 mg 11-25 MD,[place] tablet tablet na amLODIPine amLODIPine Yes Gregoriojamal Unknown Unknown 2.5 mg 2.5 mg 11-25 MD,[place] tablet tablet na levothyroxi levothyroxi Yes Galdallasova Unknown Unknown ne 137 mcg ne 137 mcg 12-01 MD,[place] tablet tablet na lisinopriL lisinopriL Yes Zoë Unknown Unknown 20 mg 20 mg 12-01 MD,[place] tablet tablet na Vital Signs Vital Name Observation Time Observation Value Comments SYSTOLIC mm[Hg] 2019-12-03 18:11:11 104 mm[Hg] mm[Hg] Method: Sit SYSTOLIC mm[Hg] 2019-11-29 18:11:07 128 mm[Hg] mm[Hg] Method: Stand DIASTOLIC mm[Hg] 2019-12-03 18:11:11 58 mm[Hg] mm[Hg] Method: Sit DIASTOLIC mm[Hg] 2019-11-29 18:11:07 70 mm[Hg] mm[Hg] Method: Stand PULSE 2019-12-03 18:11:11 65 /min /min RESP RATE 2019-12-03 18:11:11 16 /min /min TEMP 2019-12-03 18:11:11 97.5 [degF] Procedures This patient has no known procedures. Results This patient has no known results.
--- OUTSIDE RECORDS SUMMARY | 2019-12-12 15:01 | XMS REPORT ---
:1940 Author Organization [facility] Care Team Providers Name Role Phone Unavailable Unavailable Unavailable Problems Condition Condition Condition Status Onset Resolution Last Treating Comments Name Details Category Date Date Treatment Clinician Date Malignant Malignant Diagnosis Active 2020-0 Kari neoplasm of neoplasm of 11-23 [place] larynx, larynx, RN unspecified unspecified Pain frequent Pain Mgmt Active 2020-0 Deonna pain 11-25 (Kj) 08:45: Verduzco [id number] Respiratory dyspnea Respirator Active 2020-0 Deonna present y 11-25 (Kj) 08:45: Verduzco [id number] Endo/Alex anti-coagul Endo/Alex Active 2020-0 Deonna ation 11-25 (Kj) therapy 08:45: Verduzco [id number] Sensory impaired Sensory Active 2020-0 Deonna hearing 11-25 (Kj) 08:45: Verduzco [id number] Integument surgical Integument Active 2020-0 Deonna wound 11-25 (Kj) present 08:45: Verduzco [id number] Integument skin Integument Active 2020-0 Deonna integrity 11-25 (Kj) risk 08:45: Verduzco [id number] Nutrition nutritional Nutrition Active 2020-0 Deonna restriction 11-25 (Kj) s 08:45: Verduzco [id number] Elimination urinary Eliminatio Active 2020-0 Deonna incontinenc n 11-25 (Kj) e 08:45: Verduzco [id number] Neuro confusion Neuro/Emot Active 2020-0 Deonna present ion 11-25 (Kj) 08:45: Verduzco [id number] Neuro impaired Neuro/Emot Active 2020-0 Deonna decision-ma ion 11-25 (Kj) bryce 08:45: Verduzco [id number] Activity ADL Activity Active 2020-0 Deonna assistance 11-25 (Kj) required 08:45: Verduzco [id number] Activity self-care Activity Active 2020-0 Deonna deficit 11-25 (Kj) 08:45: Verduzco [id number] Safety fall risk Safety Active 2019- Deonna factor 11-25 (Kj) present 08:45: Verduzco [id number] Safety risk for Safety Active Deonna hospitaliza 11-25 (Kj) tion 08:45: Verduzco [id number] Medication oral med Meds Active Deonna assistance 11-25 (Kj) required 08:45: Verduzco [id number] Medication knowledge/s Meds Active Deonna kill 11-25 (Kj) deficit: pt 08:45: Verduzco [id number] Allergies, Adverse Reactions, Alerts Allergy Allergy Status Severity Reaction(s) Onset Inactive Treating Comments Name Type Date Date Clinician Unknown None Active Unknown None Unknown No Known Allergies For This Patient Medications Ordered Filled Start Stop Current Ordering Indication Dosage Frequency Signature Comments Components Medication Medication Date Date Medication? Clinician (SIG) Name Name nitroglycer nitroglycer Yes Galyanova Unknown Unknown in 0.4 mg in 0.4 mg 11-25 ,[place] sublingual sublingual na tablet tablet omeprazole omeprazole Yes Galyanova Unknown Unknown 20 mg 20 mg 11-25 ,[place] capsule,del capsule,del na ayed ayed release release PreserVisio PreserVisio Yes Galyanova Unknown Unknown n AREDS-2 n AREDS-2 11-25 ,[place] 250 mg-200 250 mg-200 na unit-40 unit-40 mg-1 mg mg-1 mg capsule capsule tamsulosin tamsulosin Yes Galyanova Unknown Unknown 0.4 mg 0.4 mg 11-25 ,[place] capsule capsule na levothyroxi levothyroxi Yes Galyanova Unknown Unknown ne 125 mcg ne 125 mcg 11-25 MD,[place] capsule capsule na lisinopriL lisinopriL Yes Galyanova Unknown Unknown 10 mg 10 mg 11-25 MD,[place] tablet tablet na metoprolol metoprolol Yes Galyanova Unknown Unknown succinate succinate 11-25 ,[place] ER 200 mg ER 200 mg na tablet,exte tablet,exte nded nded release 24 release 24 hr hr Aspirin Aspirin 2020-0 Yes Galyanova Unknown Unknown [facility] 11-25 ,[place] 81 mg 81 mg na chewable chewable tablet tablet atorvastati atorvastati Yes Gregoriojamal Unknown Unknown n 80 mg n 80 mg 11-25 MD,[place] tablet tablet na polymycin polymycin Yes Galjamal Unknown Unknown 11-25 MD,[place] na cholecalcif cholecalcif Yes Gregoriodallasmeenakshi Unknown Unknown mahesh mahesh 11-25 [place] POLANCO (vitamin (vitamin na D3) 5,000 D3) 5,000 unit unit disintegrat disintegrat ing tablet ing tablet cyanocobala cyanocobala Yes Zoë Unknown Unknown min (vit min (vit 11-25 ,[place] B-12) 1,000 B-12) 1,000 na mcg tablet mcg tablet diazePAM 5 diazePAM 5 Yes Zoë Unknown Unknown mg tablet mg tablet 11-25 ,[place] na gabapentin gabapentin Yes Zoë Unknown Unknown 300 mg 300 mg 11-25 ,[place] capsule capsule na Colace Colace Yes Zoë Unknown Unknown 2-In-1 8.6 2-In-1 8.6 11-25 MD,[place] mg-50 mg mg-50 mg na tablet tablet acetaminoph acetaminoph Yes Galdallasova Unknown Unknown en 160 mg/5 en 160 mg/5 11-25 MD,[place] mL oral mL oral na elixir elixir acetaminoph acetaminoph Yes Zoë Unknown Unknown en 500 mg en 500 mg 11-25 MD,[place] tablet tablet na amLODIPine amLODIPine Yes Zoë Unknown Unknown 2.5 mg 2.5 mg 11-25 MD,[place] tablet tablet na Vital Signs Vital Name Observation Time Observation Value Comments SYSTOLIC mm[Hg] 2019-11-29 18:11:07 128 mm[Hg] mm[Hg] Method: Sit SYSTOLIC mm[Hg] 2019-11-29 18:11:07 128 mm[Hg] mm[Hg] Method: Stand DIASTOLIC mm[Hg] 2019-11-29 18:11:07 64 mm[Hg] mm[Hg] Method: Sit DIASTOLIC mm[Hg] 2019-11-29 18:11:07 70 mm[Hg] mm[Hg] Method: Stand PULSE 2019-11-29 18:11:07 75 /min /min RESP RATE 2019-11-29 18:11:07 16 /min /min TEMP 2019-11-29 18:11:07 97.3 [degF] Procedures This patient has no known procedures. Results This patient has no known results.
--- OUTSIDE RECORDS SUMMARY | 2019-12-12 15:01 | XMS REPORT | Summary of Care ---
:1940 Author Organization [facility] Address [address] [facility] [address] [address] Care Team Providers Name Role Phone Linda Camp Primary Care Provider Reason for Visit Reason Comments Surgery Approval for laryngectomy on 11-18-[address] NARVAEZ Encounter Details Date Type Department Care Team Description 11/12/2019 Office Visit [facility] Zoë, Preop examination Practice MD Linda (Primary Dx) [address] [facility] [address] [facility] [address] [place], [place] [id number] [place] [address] [phone] Allergies Active Allergy Reactions Severity Noted Date Comments Metronidazole GI Reaction 09/05/2015 documented as of this encounter (statuses as of 11/12/2019) Medications Medication Sig Dispensed Refills Start Date End Date Status Aspirin 81 MG Oral Take 81 mg by 0 Active Tab mouth DAILY. albuterol HFA Take 2 Puffs by 0 Active (PROVENTIL) 108 (90 inhalation EVERY BASE) MCG/ACT FOUR HOURS Inhalation Aero Soln NEEDED. nitroglycerin Place 1 Tab under 1 Bottle 1 12/16/2014 Active (NITROSTAT) 0.4 MG tongue EVERY FIVE Sublingual SL Tab MINUTES NEEDED for chest pain. atorvastatin Take 1 Tab by 30 Tab 11 12/16/2014 Active (LIPITOR) 80 MG Oral mouth DAILY. Tab Multiple Take by mouth. 0 Active Vitamins-Minerals (PRESERVISION AREDS 2) Oral Cap Omeprazole 40 MG Oral Take 40 mg by 0 Active CAPSULE DELAYED mouth. RELEASE Tamsulosin HCl Take 1 Cap by 60 Cap 3 09/14/2016 Active (FLOMAX) 0.4 MG Oral mouth DAILY. Cap metoprolol (TOPROL Take 1 Tab by 30 Tab 12 09/21/2016 09/21/2020 Active XL) 100 MG Oral mouth DAILY. TABLET SR 24 HRIndications: CAD S/P percutaneous coronary angioplasty Additional Information Patient taking differently: 50 mg Oral DAILY, Reported on 06/03/2019 11:10 AM fluticasone (FLONASE) 50 MCG/ACT Trinity 2 Sprays in nose 1 Bottle 1 2016 Active Nasal Suspension DAILY. Cholecalciferol (VITAMIN D) 2000 Take by mouth. 0 Active units Oral Cap Loperamide HCl 2 MG Oral Tab Take by mouth. 0 09/23/2018 Active amLodipine (NORVASC) 2.5 MG Oral Take 1 Tab by mouth 30 Tab 5 11/13/2018 Active Tab DAILY. lisinopril (PRINIVIL, ZESTRIL) TAKE 1 TABLET BY MOUTH 30 Tab 5 02/07/2019 Active 20 MG Oral Tab ONCE DAILY Additional Information Patient taking differently: 10 mg, Reported on 06/03/2019 11:10 AM levothyroxine (SYNTHROID) 137 Take 137 mcg by mouth 0 Active MCG Oral Tab BEFORE BREAKFAST. diazepam (VALIUM) 5 MG Oral Take 1 Tab by mouth EVERY 30 Tab 0 10/27/2019 Active Tab BEDTIME NEEDED (insomnia). Max Daily Amount: 5 mg. GABAPENTIN PO Take 300 mg by mouth THREE 0 Active TIMES DAILY. OXYcodone-acetaminophen Take 1 Tab by mouth EVERY 0 Active (PERCOCET) 5-325 MG Oral Tab SIX HOURS NEEDED (PAIN). documented as of this encounter (statuses as of 11/12/2019) Active Problems Problem Noted Date Gram negative sepsis 07/03/2019 Urinary retention 09/14/2016 S/P CABG x 3 09/12/2016 HTN (hypertension) 09/04/2016 Coronary artery disease 08/28/2016 Tobacco abuse 08/28/2016 History of recurrent diverticulitis 02/28/2015 Unstable angina 12/14/2014 DDD (degenerative disc disease), lumbar Overview: MRI 01/2016 - multilevel DDD LS spine, moderate spinal stenosis at L4L5 and L3L4 level, multilevel neural foramnal stenosis documented as of this encounter (statuses as of 11/12/2019) Immunizations Name Administration Dates Next Due Influenza [...] Sign Reading Time Taken Comments Blood Pressure 100/58 11/12/2019 3:48 PM EDT Pulse 91 11/12/2019 3:48 PM EDT Temperature 37.2 11/12/2019 3:48 PM C (99 EDT F) Respiratory Rate - - Oxygen Saturation 95% 11/12/2019 3:48 PM EDT Inhaled Oxygen Concentration - - Weight 79.2 kg (174 lb 11.2 oz) 11/12/2019 3:48 PM EDT Height 177.8 cm (5' 10") 11/12/2019 3:48 PM EDT Body Mass Index 25.07 11/12/2019 3:48 PM EDT documented in this encounter Patient Instructions Patient InstructionsLinda Camp MD - 11/12/2019 4:00 PM EDT1. Please call for appointment for Pneumovax and Tetanus vaccination documented in this encounter Progress Notes Linda Camp MD - 11/12/2019 4:00 PM EDT PATIENT: Yamil Munoz : 1940 DATE OF SERVICE: 11/12/2019 Subjective SUBJECTIVE: Yamil Munoz is a 78-y.o. male who presents to the office today for a preoperative consultation at the request of Dr. Narvaez, who will perform a laryngectomy on 11/18/19. Patient complains of cardiac symptoms: dyspnea. Patient denies cardiac symptoms: chest pain, palpitations, irregular heart beats, near-syncope, syncope. Past history of pulmonary embolism/deep vein thrombosis: no. There is a history of bleeding complications: no Past history of anesthetic problem: no. Exercise capacity: Can you walk 2 blocks on level ground, or carry 2 bags of groceries up 2 flights of stairs? No because of hip pain Current active problems are: Patient Active Problem List Diagnosis Date Noted ? Unstable angina 12/14/2014 Priority: High ? Gram negative sepsis (HCC) 07/03/2019 ? DDD (degenerative disc disease), lumbar MRI 01/2016 - multilevel DDD LS spine, moderate spinal stenosis at L4L5 and L3L4 level, multilevel neural foramnal stenosis ? Urinary retention 09/14/2016 ? S/P CABG x 3 09/12/2016 ? HTN (hypertension) 09/04/2016 ? Coronary artery disease 08/28/2016 ? Tobacco abuse 08/28/2016 ? History of recurrent diverticulitis 02/28/2015 Past Medical History: Diagnosis Date ? AAA (abdominal aortic aneurysm) ([facility]) repair ? Anemia ? Anxiety ? BPH (benign prostatic hyperplasia) Dr. Mitchell ? 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 Mendez ? COPD (chronic obstructive pulmonary disease) ([facility]) ? DDD (degenerative disc disease), lumbar MRI 01/2016 - multilevel DDD LS spine, moderate spinal stenosis at L4L5 and L3L4 level, multilevel neural foramnal stenosis ? Diverticulitis Recurrent - at least 6 events ? High cholesterol ? Hypertension ? Hypothyroid ? Tobacco abuse Family History Problem Relation Age of Onset ? Cancer Mother pancreatic Current Outpatient Medications Medication Sig ? albuterol HFA (PROVENTIL) 108 (90 BASE) MCG/ACT Inhalation Aero Soln Take 2 Puffs by inhalation EVERY FOUR HOURS NEEDED. ? amLodipine (NORVASC) 2.5 MG Oral Tab Take 1 Tab by mouth DAILY. ? Aspirin 81 MG Oral Tab Take 81 mg by mouth DAILY. ? atorvastatin (LIPITOR) 80 MG Oral Tab Take 1 Tab by mouth DAILY. ? Cholecalciferol (VITAMIN D) 2000 units Oral Cap Take by mouth. ? diazepam (VALIUM) 5 MG Oral Tab Take 1 Tab by mouth EVERY BEDTIME NEEDED (insomnia). Max Daily Amount: 5 mg. ? fluticasone (FLONASE) 50 MCG/ACT Nasal Suspension Trinity 2 Sprays in nose DAILY. ? GABAPENTIN PO Take 300 mg by mouth THREE TIMES DAILY. ? levothyroxine (SYNTHROID) 137 MCG Oral Tab Take 137 mcg by mouth BEFORE BREAKFAST. ? lisinopril (PRINIVIL, ZESTRIL) 20 MG Oral Tab TAKE 1 TABLET BY MOUTH ONCE DAILY (Patient taking differently: 10 mg.) ? Loperamide HCl 2 MG Oral Tab Take by mouth. ? metoprolol (TOPROL XL) 100 MG Oral TABLET SR 24 HR Take 1 Tab by mouth DAILY. (Patient taking differently: Take 50 mg by mouth DAILY.) ? Multiple Vitamins-Minerals (PRESERVISION AREDS 2) Oral Cap Take by mouth. ? nitroglycerin (NITROSTAT) 0.4 MG Sublingual SL Tab Place 1 Tab under tongue EVERY FIVE MINUTES NEEDED for chest pain. ? Omeprazole 40 MG Oral CAPSULE DELAYED RELEASE Take 40 mg by mouth. ? OXYcodone-acetaminophen (PERCOCET) 5-325 MG Oral Tab Take 1 Tab by mouth EVERY SIX HOURS NEEDED (PAIN). ? Tamsulosin HCl (FLOMAX) 0.4 MG Oral Cap Take 1 Cap by mouth DAILY. No current facility-administered medications for this visit. Allergies Allergen Reactions ? Flagyl [Metronidazole] GI Reaction Social History Socioeconomic History ? Marital status: Spouse name: Not on file ? Number of children: Not on file ? Years of education: Not on file ? Highest education level: Not on file Occupational History ? Not on file Social Needs ? Financial resource strain: Not on file ? Food insecurity Worry: Not on file Inability: Not on file ? Transportation needs Medical: Not on file Non-medical: Not on file Tobacco Use ? Smoking status: Current Every Day Smoker Packs/day: 0.50 Years: 57.00 Pack years: 28.50 Types: Cigars ? Smokeless tobacco: Never Used Substance and Sexual Activity ? Alcohol use: No Comment: very rare ? Drug use: No ? Sexual activity: Not on file Lifestyle ? Physical activity Days per week: Not on file Minutes per session: Not on file ? Stress: Not on file Relationships ? Social connections Talks on phone: Not on file Gets together: Not on file Attends lutheran service: Not on file Active member of club or organization: Not on file Attends meetings of clubs or organizations: Not on file Relationship status: Not on file ? Intimate partner violence Fear of current or ex partner: Not on file Emotionally abused: Not on file Physically abused: Not on file Forced sexual activity: Not on file Other Topics Concern ? Not on file Social History Narrative . Retired. REVIEW OF SYSTEMS: All remaining review of systems was negative. Objective OBJECTIVE: BP 100/58 (BP Location: Right arm, Patient Position: Sitting) | Pulse 91 | Temp 99 F (37.2 C) | Ht 5' 10" (1.778 m) | Wt 174 lb 11.2 oz (79.2 kg ) | SpO2 95% | BMI 25.07 kg/m GENERAL: alert, fatigued. SKIN: no rash or abnormalities. EYES: conjunctivae/corneas clear. Pupils equal, round, reactive to light. Equal ocular movements intact. Fundi benign.. MOUTH: moist mucous membranes, no lesions. LYMPH NODES: cervical, supraclavicular, and axillary nodes normal.. LUNGS: Bilaterally fair air entry, L base rhonchi. HEART: regular rate and rhythm, S1, S2 normal, no murmur, click, rub or gallop. ABDOMEN: soft, non-tender. Bowel sounds normal. No masses, no organomegaly. FLANK TENDERNESS: absent. EXTREMITIES: extremities normal, atraumatic, no cyanosis or edema. NEUROLOGIC: negative. EKG: unchanged from previous tracings, normal sinus rhythm, RBBB. ICD-9-CM ICD-10-CM 1. Preop examination V72.84 Z01.818 AMBULATORY 12 LEAD EKG (GLOBAL) Patient with complicated cardiac history. Needs cardiology clearance Author: Linda Camp MD 11/12/2019 16:03 documented in this encounter Plan of Treatment Name Type Priority Associated Diagnoses Order Schedule AMBULATORY 12 LEAD EKG EKG Routine Preop examination Ordered: 11/12/2019 (GLOBAL) Health Maintenance Due Date Last Done Comments [...] Type Problems Progress Blood Pressure Blood Pressure 100/58 No Zoë, < 150/90 (11/12/2019 Linda, 3:48 PM EDT) Note: This is an individualized treatment (blood pressure) goal for Yamil Rodriguesr: Displayed above (on the left) is your goal for blood pressure control. Your most recent blood pressure is also shown above, on the right. You should try to achieve blood pressures that are lower than your goal listed above (on the left). Smoking Cessation COPD No Austin Villagomez MD Note: This is an individualized treatment (COPD) goal for Yamil Betheataker: Quit smoking immediately! 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 Shelf Model / Identifier Expiration Serial / Date Lot 3 Esperanza Shields - [id number] N/A: [facility] AMEZCUA [id number] / Implanted: Qty: 1 on 12/15/2014 by Shaun Guzman MD at [facility] [id number] / [id number] documented as of this encounter Results Not on filedocumented in this encounter Visit Diagnoses Diagnosis Preop examination Preoperative examination, unspecified documented in this encounter Insurance Payer Benefit Plan / Subscriber ID Effective Dates Phone Address Type Group [facility] [id number] 2012-Presen Medicare TODAYS OPTIONS TODAYS OPTIONS t Advantage Guarantor Name Account Type Relation to Date of Phone Billing Patient Address Yamil Munoz Personal/Family 1940 [address] [phone] [place], [place] (Work) [id number] documented as of this encounter Advance Directives Code Status Date Activated Date Inactivated Comments Full Code 12/14/2014 6:48 PM 12/16/2014 2:56 PM Does patient have decision making capacity? yes Order discussed with: Patient I discussed all options and patient/surrogate requested and agreed to: Other (full)
--- OUTSIDE RECORDS SUMMARY | 2019-12-12 15:01 | XMS REPORT ---
:1940 Author Organization [facility] Care Team Providers Name Role Phone Unavailable Unavailable Unavailable Problems This patient has no known problems. Allergies, Adverse Reactions, Alerts Allergy Allergy Status Severity Reaction(s) Onset Inactive Treating Comments Name Type Date Date Clinician Unknown None Active Unknown None Unknown No Known Allergies For This Patient Medications Ordered Filled Start Stop Current Ordering Indication Dosage Frequency Signature Comments Components Medication Medication Date Date Medication? Clinician (SIG) Name Name No Known No Known No None None None Medications Medications For This For This Patient Patient Procedures This patient has no known procedures. Results This patient has no known results.
--- OUTSIDE RECORDS SUMMARY | 2019-12-12 15:01 | XMS REPORT ---
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 Chronic Diagnosis Active Kari obstructive obstructive 11-25 [place] pulmonary pulmonary RN disease, disease, unspecified unspecified Essential Essential Diagnosis Active Kari (primary) (primary) 11-25 [place] hypertensio hypertensio RN n n 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 [place] coronary coronary artery artery without without angina [...] cigarettes, cigarettes, RN uncomplicat uncomplicat ed ed 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 uco Diagnosis Active Kari (current) (current) [place] use of use of RN aspirin aspirin Pain frequent Pain Mgmt Active Deonna pain 11-25 (Kj) 08:45: Verduzco 00 [id number] Respiratory dyspnea Respirator Active Deonna present y 11-25 (Kj) 08:45: Verduzco 00 [id number] Endo/Alex anti-coagul Endo/Alex Active 2020-0 Deonna ation 11-25 (Kj) therapy 08:45: Verduzco [id number] Sensory impaired Sensory Active 2020-0 Deonna hearing 11-25 (Kj) 08:45: Verduzco [id number] Integument surgical Integument Active 2020-0 Deonna wound 11-25 (Kj) present 08:45: Verduzco [id number] Integument skin Integument Active 2020-0 Deonna integrity 11-25 (Kj) risk 08:45: Verduzco [id number] Nutrition nutritional Nutrition Active 2020-0 Deonna restriction 11-25 (Kj) s 08:45: Verduzco [id number] Elimination urinary Eliminatio Active 2020-0 Deonna incontinenc n 11-25 (Kj) e 08:45: Verduzco [id number] Neuro confusion Neuro/Emot Active 2020-0 Deonna present ion 11-25 (Kj) 08:45: Verduzco [id number] Neuro impaired Neuro/Emot Active 2020-0 Deonna decision-ma ion 11-25 (Kj) bryce 08:45: Verduzco [id number] Activity ADL Activity Active 2020-0 Deonna assistance 11-25 (Kj) required 08:45: Verduzco [id number] Activity self-care Activity Active 2020-0 Deonna deficit 11-25 (Kj) 08:45: Verduzco [id number] Safety fall risk Safety Active 2020-0 Deonna factor 11-25 (Kj) present 08:45: Verduzco [id number] Safety risk for Safety Active 2020-0 Deonna hospitaliza 11-25 (Kj) tion 08:45: Verduzco [id number] Medication oral med Meds Active 2020-0 Edonna assistance 11-25 (Kj) required 08:45: Verduzco [id number] Medication knowledge/s Meds Active 2020-0 Deonna kill 11-25 (Kj) deficit: pt 08:45: Verduzco [id number] Allergies, Adverse Reactions, Alerts Allergy Allergy Type Status Severity Reaction(s) Onset Inactive Treating Comments Name Date Date Clinician Flagyl Medication Active Unknown Nausea 2019-11 Mamie White Name ID [id number] Medications Ordered Filled Start Stop Current Ordering Indication Dosage Frequency Signature Comments Components Medication Medication Date Date Medication? Clinician (SIG) Name Name nitroglycer nitroglycer Yes Galyanova Unknown Unknown in 0.4 mg in 0.4 mg 11-25 [place] POLANCO sublingual sublingual na tablet tablet omeprazole omeprazole Yes Galyanova Unknown Unknown 20 mg 20 mg 11-25 [place] POLANCO capsule,del capsule,del na ayed ayed release release PreserVisio PreserVisio Yes Galyanova Unknown Unknown n AREDS-2 n AREDS-2 11-25 [place] POLANCO[place] 250 mg-200 250 mg-200 na unit-40 unit-40 mg-1 mg mg-1 mg capsule capsule tamsulosin tamsulosin Yes Galyanova Unknown Unknown 0.4 mg 0.4 mg 11-25 [place] POLANCO capsule capsule na levothyroxi levothyroxi Yes Galyanova Unknown Unknown ne 125 mcg ne 125 mcg 11-25 [place] POLANCO capsule capsule na lisinopriL lisinopriL Yes Galyanmeenakshi Unknown Unknown 10 mg 10 mg 11-25 [place] POLANCO tablet tablet na metoprolol metoprolol Yes Galyanova Unknown Unknown succinate succinate 11-25 [place] POLANCO ER 200 mg ER 200 mg na tablet,exte tablet,exte nded nded release 24 release 24 hr hr Aspirin Aspirin Yes Galyanova Unknown Unknown [facility] 11-25 [place] POLANCO 81 mg 81 mg na chewable chewable tablet tablet atorvastati atorvastati Yes Galyanova Unknown Unknown n 80 mg n 80 mg 11-25 [place] POLANCO tablet tablet na polymycin polymycin Yes Galyanova Unknown Unknown 11-25 [place] POLANCO na cholecalcif cholecalcif Yes Galyanova Unknown Unknown mahesh mahesh 11-25 [place] POLANCO (vitamin (vitamin na D3) 5,000 D3) 5,000 unit unit disintegrat disintegrat ing tablet ing tablet cyanocobala cyanocobala Yes Galyanova Unknown Unknown min (vit min (vit 11-25 [place] POLANCO B-12) 1,000 B-12) 1,000 na mcg tablet mcg tablet diazePAM 5 diazePAM 5 Yes Galyanova Unknown Unknown mg tablet mg tablet 11-25 [place] POLANCO na gabapentin gabapentin 2020-0 Yes Galyanova Unknown Unknown 300 mg 300 mg 11-25 MD,[place] capsule capsule na Colace Colace 2019-0 Yes Galyanova Unknown Unknown 2-In-1 8.6 2-In-1 8.6 - MD,[place] mg-50 mg mg-50 mg na tablet tablet acetaminoph acetaminoph 2019- Yes Galyanova Unknown Unknown en 160 mg/5 en 160 mg/5 11-25 MD,[place] mL oral mL oral na elixir elixir acetaminoph acetaminoph Yes Galyanova Unknown Unknown en 500 mg en 500 mg 11-25 MD,[place] tablet tablet na amLODIPine amLODIPine Yes Galyanova Unknown Unknown 2.5 mg 2.5 [...]
--- OUTSIDE RECORDS SUMMARY | 2019-12-12 15:01 | XMS REPORT | Continuity of Care Document ---
:1940 External Reference #:[id number] Author Name Behzad Stewart M.D. (transmitted by agent of provider Karmen Stauffer) Address [address] [facility] [address] [place] [address] Care Team Providers Name Role Phone Kaia Jeffers MD - Internal Care Team Information Back Order Clerk [phone] Medicine Behzad Stewart MD [facility] - Care Team Information Back Order Clerk [phone] Cardiovascular Disease Linda Camp MD - Family Care Team Information Back Order Clerk [phone] Medicine Problems Active Problems Provider Date Mixed hyperlipidemia Tim Patiño MD Onset: 05/17/2010 Coronary atherosclerosis Tim Patiño MD Onset: 05/17/2010 Tobacco user Michelle Pearce M.D. Onset: 05/17/2010 Note: 73 pk yr Gastroesophageal reflux disease Michelle Pearce M.D. Onset: 05/17/2010 Kidney stone Michelle Pearce M.D. 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 Onset: 07/11/2011 Anemia Kam Mckeon M.D. Onset: 10/24/2011 Essential hypertension Paulina Dotson, N.P. Onset: 09/10/2012 Abdominal aortic aneurysm without Paulina Dotson, N.P. Onset: 2012 rupture Note: 5.1 cm /7 cm long Adjustment disorder with depressed mood Kam Mckeon M.D. Onset: 2012 Hyperlipidemia Kam Mckeon M.D. Onset: 01/12/2013 Generalized anxiety disorder Kam Mckeon M.D. Onset: 04/14/2013 Coronary atherosclerosis Behzad Stewart M.D. Onset: 10/04/2014 Age related macular degeneration Kaia Jeffers M.D. Onset: 12/09/2014 Low back pain Dayna Carbajal M.D. Onset: 04/23/2016 Spinal stenosis of lumbar region Dayna Carbajal M.D. Onset: 04/23/2016 Coronary artery bypass graft Kaia Jeffers M.D. Onset: 09/25/2016 Note: X 3 ( dr. 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 keeps active Exercise Type/Frequency he eats heart healthy food Allergies, Adverse Reactions, Alerts Active Allergies Reaction Severity Comments Date Antibiotic Unknown 08/04/2013 Flagyl stomach discomfort 12/20/2017 Inactive Allergies NKDA 09/06/2009 Medications Active Medications SIG Qnty Indications Ordering Provider Date Metoprolol Succinate 1/2 tab once Unknown 08/10/2018 ER daily by mouth 200mg Tablets ER 24HR Vitamin D3 1 cap po daily Unknown 08/10/2018 125mcg (5000 Ut) Capsules Lisinopril 1/2 by mouth 90tabs I10 Kaia Jeffers, 03/28/2017 20mg Tablets every day M.DShannan Atorvastatin Calcium 1 by mouth 90tabs Behzad Smith 12/29/2014 80mg every day Maria Isabel Stewart Tablets Nasonex 1 spray to each 17units Tushar Mendez, 12/07/2013 50mcg/Act nostril prn M.DShannan Suspension Diazepam 1/2 to 1 tab 2 60tabs F41.1 Kaia Jeffers, 04/14/2013 5mg Tablets times a day as M.DShannan needed Aspirin 1 po qd Maria Isabel 12/18/2012 81mg Tablets Kasey Vega Eyelia Injection every 3 to 4 Unknown months Oxycodone-Acetaminophe 1 tabs by mouth Unknown n every 6 hours 5-325mg Tablets as needed for pain Gabapentin 1 cap po tid Unknown 300mg Capsules Vitamin B12 TR 1 by mouth Unknown 1000mcg every day Tablets ER Ventolin HFA 2 puffs by Unknown 108(90Base) mouth four mcg/Act Aerosol times a day as needed Loperamide HCL 1 tab every 3 Unknown 2mg hrs as needed Capsules Amlodipine Besylate 1/2 tab by Unknown 5mg mouth every day Tablets Levothyroxine Sodium 1 by mouth Unknown every day 125mcg Tablets Tamsulosin HCL 1 by mouth Unknown 0.4mg every day Capsules Omeprazole 1 by mouth 90caps Kaia Jeffers, 20mg Capsules twice daily M.DShannan martin sl q5min up 30tabs Behzad Smith 0.4mg Tablets to 3 doses as Maria Isabel Stewart Sub needed Preservision Areds 2 take one cap in Unknown the morning and Areds 2 Capsules one cap in the evening Immunizations CPT Code Status Date Vaccine Lot # [id number] Given 06/20/2017 Influenza Virus Vaccine, Quadrivalent, Split, [id number] Preservative Free 39685 Given 07/04/2016 Fluzone High Dose 04695 Given 06/15/2015 Influenza Virus Vaccine, Quadrivalent, Split, [id number] Preservative Free 50287 Given 07/20/2014 Pneumococcal Conjugate Vaccine 13 Valent For [id number] Intramuscular Use 29364 Given 07/20/2014 Flu Vaccine Split Virus Preservative Free For Indiv [id number] 3Yr Older 90402 Given 06/18/2012 Influenza Virus 3Yrs & Over 79580 Given 09/20/2009 Pneumonia Vaccine [id number] 68315 Given 09/20/2009 Tetanus And Diptheria (Td) For Adult Use [id number] Preservative Free 56855 Given Unknown Zoster (Zostavax) Vital Signs Date Vital Result Comment 11/05/2019 10:06am Height 70 inches 5'10" Weight 175.00 lb with shoes Heart Rate 78 /min BP Systolic Sitting 110 mmHg rue reg cuff BP Diastolic Sitting 60 mmHg rue reg cuff BP Systolic Standing 110 mmHg rue reg cuff BP Diastolic Standing 56 mmHg rue reg cuff Respiratory Rate 14 /min BMI (Body Mass Index) 25.1 kg/m2 Ejection Fraction 55-60% date 07/16/19 ECHO 08/18/2019 1:47pm Height 70 inches 5'10" Weight 178.00 lb with boots Heart Rate 72 /min right radial BP Systolic Sitting 128 mmHg BP Diastolic Sitting 72 mmHg BP Systolic Standing 132 mmHg BP Diastolic Standing 68 mmHg BMI (Body Mass Index) 25.5 kg/m2 Ejection Fraction 55-60% Echo 07/16/19 Results Test Acquired Date Facility Test Result H/L Range Note Surgical 09/18/2019 [facility] Surgical SEE RESULT [address] Pathology BELOW [place] [id number] [phone] PDFReport SEE IMAGE 1 SEE RESULT BELOW Name: DAYNA WOLF V : [address]: Tushar Mendez MD Acct: [id number] Unit: [id number] AGE: 78 Location: OR Re09/18/19 SEX: M Status: [facility] SPEC: [id number] NICK: 09/18/19- SUBM DR: Tushar Mendez MD REQ: [id number] RECD: 09/18/197 STATUS: SOUT _ ORDERED: LEVEL 4, IMMUNO-FIRST, IMMUNO-ADDL/12, IMMUNO-QUANT/2 ADDENDUM Addendum: Additional immunohistochemical stains for R Sox 10 and Melan-A performed with appropriate controls are negative. Addendum Signed (signature on file) Sanjiv Wilkins MD 1523 FINAL DIAGNOSIS Epiglottis, biopsy: -- High-grade sarcomatoid malignant neoplasm. See comment. Comment: The biopsy is demonstrates an invasive highly cellular markedly pleomorphic malignant neoplasm undermining the benign squamous surface epithelium with areas of ulceration and associated acute inflammation. Tumor demonstrates a palisaded architectural pattern with large pleomorphic nuclei with high mitotic rate including abnormal mitotic figures and marketed nuclear pleomorphism. The following immunohistochemical stains are performed with appropriate controls CONTINUED ON NEXT PAGE DEPARTMENT OF PATHOLOGY, [address] [place] [address] Sanjiv Wilkins M.D. Director [facility] # [id number] PDL 1 0% tumor, 0% lymphocytes RAE negative Vimentin strong positive SMA positive and traversing blood vessels only CK20 negative CK7 negative CK5/6 negative Pankeratin negative P63 negative High molecular weight keratin negative C kit positive in background mast cells only S100 weak focal staining Ki-67 index greater than 75% The morphologic features and immunohistochemical staining pattern indicates a very high-grade undifferentiated sarcomatoid malignancy. 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 While sarcomatoid squamous cell carcinoma cannot be entirely excluded, all keratin stains are negative in this study. Additional studies are pending and will be reported in an addendum. This case was discussed with Dr. Mendez on 09/22/19 approximately 4 PM. PRE-OPERATIVE DIAGNOSIS Malignant neoplasm of supraglottis GROSS DESCRIPTION The specimen is received in formalin labeled, Biopsy of Epiglottis, and consists of a 1.7 x 1.3 x 0.5 cm aggregate of wooten-pink irregular soft tissue fragments admixed with scant red-brown blood clot. Entirely submitted, one cassette. Signed by and Reported on: Sanjiv Wilkins MD 1617 END OF REPORT DEPARTMENT OF PATHOLOGY, [address] [place] [address] Sanjiv Wilkins M.D. Director [facility] # [id number] Procedures Date Code Description Status 11/05/2019 01199 EKG Tracing & Interpretation Completed 08/18/2019 33064 EKG Tracing & Interpretation Completed 07/16/2019 21373 ECHO Transthoracic, Real-Time 2D With Doppler And Completed Color Flow 07/16/2019 82840 ECHO Transthoracic, Real-Time 2D With Doppler And Completed Color Flow 05/13/2017 [id number] Diabetic Retinal Eye Exam Completed 04/11/2015 [id number] Diabetic Retinal Eye Exam Completed 12/10/2013 [id number] Bone Mineral Density Test Completed 11/24/2012 [id number] Diabetic Retinal Eye Exam Completed 09/11/2012 [id number] Colonoscopy Completed 09/09/2012 [id number] Colonoscopy Completed 05/29/2012 [id number] Colonoscopy Completed 10/04/2006 [id number] Colonoscopy Completed Medical Devices Description No Information Available Encounters Type Date Location Provider Dx Diagnosis Office Visit 11/05/2019 [facility] Qutaceci S. I25.10 Athmnl heart 10:15a Of Anna Stewart M.D. 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 qagan tayag[place]in coronary artery with 11/05/2019 I10 Essential (primary) hypertension Behzad Stewart M.D. 11/05/2019 Z95.1 Presence of aortocoronary bypass graft Behzad Stewart M.D. 11/05/2019 I77.810 Thoracic aortic ectasia Behzad Stewart M.D. 11/05/2019 Z01.810 Encounter for preprocedural Behzad Stewart M.D. cardiovascular examination 11/05/2019 I45.10 Unspecified right bundle-branch block Behzad Stewart M.D. 11/05/2019 I25.2 Old myocardial infarction Behzad Stewart M.D. 11/05/2019 C32.8 Malignant neoplasm of overlapping Behzad Stewart M.D. sites of larynx 11/05/2019 F17.210 Nicotine dependence, cigarettes, Behzad Stewart M.D. uncomplicated 08/18/2019 I25.10 Atherosclerotic heart disease of Behzad Stewart M.D. qagan tayag[place]in coronary artery with 08/18/2019 I10 Essential (primary) hypertension Behzad Stewart M.D. 08/18/2019 Z95.1 Presence of aortocoronary bypass graft Behzad Stewart M.D. 08/18/2019 I77.810 Thoracic aortic ectasia Behzad Stewart M.D. 08/18/2019 F17.210 Nicotine dependence, cigarettes, Behzad Stewart M.D. uncomplicated 07/16/2019 I71.9 Aortic aneurysm of unspecified site, Behzad Stewart M.D. without rupture 07/16/2019 I71.9 Aortic aneurysm of unspecified site, [place] ECHO Schedule without rupture 07/16/2019 Z95.828 Presence of other vascular implants [place] [facility]CHO Schedule and grafts 07/16/2019 I25.10 Atherosclerotic heart disease of [place] ECHO Schedule qagan tayag[place]in coronary artery with 07/16/2019 I10 Essential (primary) hypertension [place] ECHO Schedule 07/16/2019 Z95.1 Presence of aortocoronary bypass graft [place] ECHO Schedule Plan of Treatment 11/05/2019 - Behzad Stewart M.D.I25.10 Atherosclerotic heart disease of qagan tayagungin coronary artery withFollow up:one yr ovI10 Essential (primary) volsbtldomicD71.1 Presence of aortocoronary bypass jbkuzO65.810 Thoracic aortic htsdupzH73.810 Encounter for preprocedural cardiovascular acgkbkovmeoE17.10 Unspecified right bundle-branch aomjxJ17.2 Old myocardial lwrxewyaetH53.8 Malignant neoplasm of overlapping sites of lamexlT23.210 Nicotine dependence, cigarettes, uncomplicated Functional Status Description No Information Available Mental Status Description No Information Available Referrals Description No Information Available
--- OUTSIDE RECORDS SUMMARY | 2019-12-12 15:01 | XMS REPORT ---
:1940 Author Organization [facility] Care Team Providers Name Role Phone Unavailable Unavailable Unavailable Problems Condition Condition Condition Status Onset Resolution Last Treating Comments Name Details Category Date Date Treatment Clinician Date Malignant Malignant Diagnosis Active Kathryn neoplasm of neoplasm of 3-24 Wendela larynx, larynx, [id number] unspecified unspecified Allergies, Adverse Reactions, Alerts Allergy Allergy Status [...]
--- OUTSIDE RECORDS SUMMARY | 2019-12-12 15:01 | XMS REPORT ---
:1940 Author Organization [facility] Care Team Providers Name Role Phone Unavailable Unavailable Unavailable Problems Condition Condition Condition Status Onset Resolution Last Treating Comments Name Details Category Date Date Treatment Clinician Date Malignant Malignant Diagnosis Active Kari neoplasm of neoplasm of 3-24 Malnoske larynx, larynx, RN unspecified unspecified Allergies, Adverse Reactions, Alerts Allergy [...]
--- OUTSIDE RECORDS SUMMARY | 2019-12-12 15:01 | XMS REPORT ---
:1940 Author Organization [facility] Care Team Providers Name Role Phone Unavailable [...]
--- OUTSIDE RECORDS SUMMARY | 2019-12-12 15:01 | XMS REPORT ---
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, disease, unspecified unspecified Essential Essential Diagnosis Active Kari (primary) (primary) 11-25 [place] hypertensio hypertensio RN n n 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 pauma pauma coronary coronary artery artery without without angina [...] cigarettes, cigarettes, RN uncomplicat 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 Kari (current) (current) [place] use of use of RN aspirin aspirin Pain frequent Pain Mgmt Active Deonna pain 11-25 (Kj) 08:45: [place] 00 [id number] Respiratory dyspnea Respirator Active Deonna present y 11-25 (Kj) 08:45: [place] 00 [id number] Endo/Alex anti-coagul Endo/Alex Active 2020-0 Deonna ation 11-25 (Kj) therapy 08:45: [place] [id number] Sensory impaired Sensory Active 2020-0 Deonna hearing 11-25 (Kj) 08:45: [place]co [id number] Integument surgical Integument Active 2020-0 Deonna wound 11-25 (Kj) present 08:45: Ver[place]co [id number] Integument skin Integument Active 2020-0 Deonna integrity 11-25 (Kj) risk 08:45: Verduzco [id number] Nutrition nutritional Nutrition Active 2020-0 Deonna restriction 11-25 (Kj) s 08:45: [place] [id number] Elimination urinary Eliminatio Active 2020-0 Deonna incontinenc n 11-25 (Kj) e 08:45: Ver[place]co [id number] Neuro confusion Neuro/Emot Active 2020-0 Deonna present ion 11-25 (Kj) 08:45: [place]co [id number] Neuro impaired Neuro/Emot Active 2020-0 Deonna decision-ma ion 11-25 (Kj) bryce 08:45: [place] [id number] Activity ADL Activity Active 2020-0 Deonna assistance 11-25 (Kj) required 08:45: [place] [id number] Activity self-care Activity Active 2020-0 Deonna deficit 11-25 (Kj) 08:45: Ver[place]co [id number] Safety fall risk Safety Active 2020-0 Deonna factor 11-25 (Kj) present 08:45: [place] [id number] Safety risk for Safety Active 2020-0 Deonna hospitaliza 11-25 (Kj) tion 08:45: [place] [id number] Medication oral med Meds Active 2020-0 Deonna assistance 11-25 (Kj) required 08:45: [place] [id number] Medication knowledge/s Meds Active 2020-0 Deonna kill 11-25 (Kj) deficit: pt 08:45: [place] [id number] Allergies, Adverse Reactions, Alerts Allergy Allergy Type [...]
[2019-12-12] MEDS ORDERED: NS 0.9% 1000 ML** 1,000 ML IV ONE (15:06)
--- NOTE | 2019-12-12 15:14 | ED ---
GI/ HPI - HPI Summary HPI Summary: This pt is an 78 Y/O M presenting to [facility] with a CC of an inability to urinate. He states that he has not been able to urinate since 0200 this date. 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 He denies any pain, headaches, SOB, N/V, fevers, chills, and CP. He states that he has not had the need to urinate and has been unable to produce any urine today. He has no aggravating or alleviating factors. He has a PMHx of throat cancer, CAD, triple A repair, and HTN. - History of Current Complaint Chief Complaint: EDUrogenitalProblems Time Seen by Provider: 12/12/19 14:59 Stated Complaint: UNABLE TO VOID PER PT Hx Obtained From: Patient Onset/Duration: Started Hours Ago - 13, Still Present Timing: Constant, Lasting Hours - 13 Current Severity: None Pain Intensity: 0 Associated Signs and Symptoms: Positive: Negative - headaches. Negative: Nausea , Vomiting, Fever, Chills, Abdominal Pain, Chest Pain Aggravating Factor(s): Nothing Alleviating Factor(s): Nothing - Additional Pertinent History Primary Care Physician: [id number] - Allergy/Home Medications Allergies/Adverse Reactions: Allergies Allergy/AdvReac Type Severity Reaction Status Date / Time metronidazole [From Flagyl] AdvReac Severe Nausea And Verified 12/12/19 14:50 Vomiting Home Medications: Home Medications Nitroglycerin TAB 0.4 MG* 0.4 mg SL Q5M PRN 01/20/15 [History Confirmed 12/12/19 ] Albuterol HFA INHALER* [Ventolin HFA Inhaler*] 2 puff INH QID PRN 02/02/15 [ History Confirmed 12/12/19] Omeprazole CAP (NF) [Prilosec CAP* 20 MG] 20 mg PO BID 02/02/15 [History Confirmed 12/12/19] Levothyroxine TAB* [Synthroid 125 MCG TAB*] 125 mcg PO QAM 08/20/17 [History Confirmed 12/12/19] Tamsulosin CAP* [Flomax CAP*] 0.4 mg PO QAM 08/20/17 [History Confirmed 12/12/19 ] Atorvastatin* [Lipitor 80 MG*] 80 mg PO QAM 09/14/19 [History Confirmed 12/12/19 ] Cyanocobalamin TAB* [Vitamin B12 TAB*] 1,000 mcg PO BEDTIME 09/14/19 [History Confirmed 12/12/19] Diazepam TAB(*) [Valium TAB(*)] 5 mg PO BEDTIME MDD 5 mg 09/14/19 [History Confirmed 12/12/19] Vit C/E/Zn/Coppr/Lutein/Zeaxan [Preservision Areds 2 Softgel] 1 each PO BID [History Confirmed 12/12/19] Bacitracin/Polymyxin B Sulfate [Polysporin Ointment] 1 applic TOPICAL SEE INSTRUCTIONS 12/12/19 [History Confirmed 12/12/19] Gabapentin 300 mg PO TID 12/12/19 [History Confirmed 12/12/19] PMH/Surg Hx/FS Hx/Imm Hx Previously Healthy: Yes Endocrine/Hematology History: Reports: Hx Thyroid Disease, Hx Anemia - ON IRON SUPPLEMENT Denies: Hx Anticoagulant Therapy, Hx Diabetes Cardiovascular History: Reports: Hx Angina, Hx Coronary Artery Disease, Hx Hypercholesterolemia, Hx Hypertension, Hx Myocardial Infarction, Hx Valvular Heart Disease, Other Cardiovascular Problems/Disorders - AAA repair 12/2018 Denies: Hx Congestive Heart Failure, Hx Pacemaker/ICD Respiratory History: Reports: Hx Chronic Obstructive Pulmonary Disease (COPD), Other Respiratory Problems/Disorders - ACTIVE SMOKER 2 PPD Denies: Hx Asthma GI History: Reports: Hx Diverticulosis, Hx Gastroesophageal Reflux Disease, Hx Irritable Bowel, Hx Ulcer - gerd, 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 report, Hx Eye Prosthesis - R eye, Hx Macular Degeneration, Hx Vision Problem - no vision in R eye Denies: Hx Hearing Aid, Other Sensory Impairments Opthamlomology History: Reports: Hx Cataracts - Bilateral, cataract surgery, Hx Contacts or Glasses - glasses, prostetic right eye, Hx Eye Injury - receiving abx for infection in left eye per pt. report, Hx Eye Prosthesis - R eye, Hx Macular Degeneration, Hx Vision Problem - no vision in R eye Denies: Other Sensory Impairments Neurological History: Denies: Hx Dementia, Hx Seizures Psychiatric History: Reports: Hx Anxiety Denies: Hx Panic Disorder, Hx Substance Abuse - Cancer History Cancer Type, Location and Year: THROAT CA, 2009 - currently in remission Hx Chemotherapy: No - radiation Hx Radiation Therapy: Yes - Surgical History Surgery Procedure, Year, and Place: 1954-APPENDECTOMY-. COLONOSCOPIES-. CATARACT SX BOTH EYES-. CYST REMOVED FROM RT SHOULDER 1999,. stent placement 2014-XIENCE CLEARED FOR UP TO 720G/CM-OK FOR EITHER 1.5 OR 3T-. RIGHT EYE PROSTHESIS-EYES CLEARED ORBIT DX [facility] 12/14/13. September 10 2016 - triple CABG. 12/2018- AAA REPAIR -michael bradley with spiral extentions into iliac arteries. conditional 5-normal mode, 20cm area artifact at 3T. 2007 micro larynoscopy w/ biopsy Hx Anesthesia Reactions: No - Immunization History Date of Tetanus Vaccine: Unk Date of Influenza Vaccine: Fall 2012 Infectious Disease History: No Infectious Disease History: Denies: Hx Clostridium Difficile, Hx Hepatitis, Hx Human Immunodeficiency Virus (HIV), Hx of Known/Suspected MRSA, Hx Shingles, Hx Tuberculosis, Traveled Outside the [place] in Last 30 Days - Family History Known Family History: Positive: None - reviewed & noncontributory, Cardiac Disease - Social History Occupation: Retired Lives: With Family Alcohol Use: None Hx Substance Use: No Substance Use Type: Reports: None Hx Tobacco Use: Yes Smoking Status (MU): Heavy Every Day Tobacco Smoker Type: Cigarettes, Cigars Amount Used/How Often: 1ppd of mini cigars smoked for 70 years Length of Time of Smoking/Using Tobacco: approximate 62 yrs Have You Smoked in the Last Year: Yes Review of Systems Negative: Fever Negative: Chest Pain Negative: Shortness Of Breath Negative: Abdominal Pain, Vomiting, Nausea Positive: other - inability to void Negative: Headache All Other Systems Reviewed And Are Negative: Yes Physical Exam - Summary Physical Exam Summary: Constitutional: Well-developed, Well-nourished, Alert. (-) Distressed Skin: Warm, Dry HENT: Normocephalic; Atraumatic Eyes: Conjunctiva normal Neck: Musculoskeletal ROM normal neck. (-) JVD, (-) Stridor, (-) Tracheal deviation Cardio: Rhythm regular, rate normal, Heart sounds normal; Intact distal pulses; The pedal pulses are 2+ and symmetric. Radial pulses are 2+ and symmetric. (-) Murmur Pulmonary/Chest wall: Effort normal. (-) Respiratory distress, (-) Wheezes, (-) Rales Abd: Soft, (-) tenderness, (-) Distension, (-) Guarding, (-) Rebound, Bedside US shows urine retention. Will receive aranda catheter. Musculoskeletal: (-) Edema Lymph: (-) Cervical adenopathy Neuro: Alert, Oriented x3 Psych: Mood and affect Normal Triage Information Reviewed: Yes Vital Signs On Initial Exam: Initial Vitals Temp Pulse Resp BP Pulse Ox 97.1 F 99 18 109/71 97 12/12/19 14:46 12/12/19 14:46 12/12/19 14:46 12/12/19 14:46 12/12/19 14:46 Vital Signs Reviewed: Yes Procedures - Sedation Patient Received Moderate/Deep Sedation with Procedure: No Diagnostics - Vital Signs Vital Signs Temp Pulse Resp BP Pulse Ox 12/12/19 14:46 97.1 F 99 18 109/71 97 - Laboratory Result Diagrams: 12/12/19 15:15 12/12/19 15:15 Lab Statement: Any lab studies that have been ordered have been reviewed, and results considered in the medical decision making process. Re-Evaluation - Re-Evaluation First Eval Re-Evaluation Time: 15:51 Change: Improved Comment: Pt had 200 ccs of urine drained. GIGU Course/Dx - Course Course Of Treatment: Patient is here with urinary retention. Patient has a history of BPH and sees Dr. Guevara. Patient recently had a laryngectomy in [place]. Patient has had decreased by mouth so the idea of severe dehydration was entertained. Patient had laboratory work performed which was unchanged from baselin. Patient had a Aranda placed with 200 cc of urine returned. Patient's urine was sent for culture. Patient will follow-up with urology and was discharged with a leg bag - Diagnoses Provider Diagnoses: Dehydration, Urinary retention Discharge ED - Sign-Out/Discharge Documenting (check all that apply): Patient Departure - discharge - Discharge Plan Condition: Good Disposition: HOME Patient Education Materials: Dehydration (ED), Urinary Retention in Men (ED) Referrals: Richmond Guevara MD [Medical Doctor] - Additional Instructions: PLEASE FOLLOW UP WITH DR. GUEVARA IN 1-3 DAYS AND RETURN TO THE EMERGENCY DEPARTMENT FOR ANY NEW OR WORSENING SYMPTOMS. Please stay as hydrated as possible until and following you appointment. - Billing Disposition and Condition Condition: GOOD Disposition: Home - Attestation Statements Document Initiated by Austenibsaira: Yes Documenting Scribe: Kyle Menchaca Provider For Whom Austenibe is Documenting (Include Credential): Aly Deleon MD Scribe Attestation: Kyle Mosqueda, scribed for Aly Deleon MD on 12/12/19 at 1730. Scribe Documentation Reviewed: Yes Provider Attestation: The documentation as recorded by the Kyle melendrez accurately reflects the service I personally performed and the decisions made by , Aly Deleon MD Status of Scribe Document: Viewed
[2019-12-12 15:23] LABS: ABS Eosinophils 0.1 10^3/ul (0-0.6); ABS Lymphocytes 0.8 10^3/ul (1.0-4.8); ABS Monocytes 0.7 10^3/ul (0-0.8); ABS Neutrophils 6.3 10^3/ul (1.5-7.7); Eosinophil % 1.7 %; Hematocrit 39 % (42-52); Hemoglobin 13.7 g/dL (14.0-18.0); Lymphocyte % 9.8 %; Mean Corpuscular HGB Conc 35 g/dL (31-36); Mean Corpuscular Hemoglobin 32 pg (27-31); Mean Corpuscular Volume 92 fL (80-94); Nucleated Red Blood Cells % 0.3; Platelet Count 229 10^3/uL (150-450); Red Cell Distribution Width 17 % (10-15)
[2019-12-12 15:40] LABS: BUN/Creatinine Ratio 22.9 (8-20); Calcium 9.1 mg/dL (8.6-10.3); EGFR African American 78.8 (>60); EGFR Non-African American 65.1 (>60); Potassium 4.5 mmol/L (3.5-5.0)
[2019-12-12 16:10] LABS: Urine Appearance Clear; Urine Bilirubin Negative (Negative); Urine Blood Negative (Negative); Urine Color Straw; Urine Glucose Negative (Negative); Urine Ketones Negative (Negative); Urine Nitrite Negative (Negative); Urine Protein Negative (Negative); Urine Specific Gravity 1.004 (1.010-1.030); Urine Urobilinogen Negative (Negative)
[2019-12-12 16:35] VITALS: BP 150/81
== END 2019-12-12 15:00 | disposition home or self-care (01) ==
LOC: ED 14:45
DX: E86.0 Dehydration (principal); R33.9 Retention of urine, unspecified; F17.210 Nicotine dependence, cigarettes, uncomplicated; Z85.818 Personal history of malignant neoplasm of other sites of lip, oral cavity, and pharynx; F41.9 Anxiety disorder, unspecified; E03.9 Hypothyroidism, unspecified; I25.10 Atherosclerotic heart disease of native coronary artery without angina pectoris; E78.00 Pure hypercholesterolemia, unspecified; I25.2 Old myocardial infarction; I10 Essential (primary) hypertension; J44.9 Chronic obstructive pulmonary disease, unspecified; Z86.79 Personal history of other diseases of the circulatory system; K21.9 Gastro-esophageal reflux disease without esophagitis; Z87.442 Personal history of urinary calculi
CPT/HCPCS: 36415; 80048; 81003; 85025; 96360; 99283

== ENCOUNTER 2020-04-14 08:28 | Observation (INO) ==
[2020-04-14 09:21] LABS: Mean Platelet Volume 7.2 fL (7.4-10.4); Platelet Count 179 10^3/uL (150-450)
[2020-04-14 09:34] LABS: Activated Partial Thrombo Time 32.5 seconds (26.0-38.0)
[2020-04-14] MEDS ORDERED: Midazolam 2 mg/2 ml VIAL 1 mg/ml 2 ml VIAL (2 mg) ONE (09:59)
[2020-04-14] MEDS ORDERED: fentaNYL 100 mcg/2 ml 50 MCG/ML VIAL ONE (09:59)
[2020-04-14] MEDS ORDERED: ceFAZolin 1 GM* X ONE DOSE (AddVan) IVPB (10:00)
[2020-04-14] MEDS: Heparin 5000 UNITS/ML 1 mL VIAL SUBCUT SCH ×2 (15:25→22:00)
[2020-04-14] MEDS ORDERED: Albuterol HFA INHALER 8 gm MDI INH PRN (20:14)
[2020-04-15] MEDS: Heparin 5000 UNITS/ML 1 mL VIAL SUBCUT SCH (05:29)
[2020-04-15 05:35] LABS: ABS Eosinophils 0.1 10^3/ul (0-0.6); ABS Lymphocytes 0.7 10^3/ul (1.0-4.8); ABS Monocytes 0.7 10^3/ul (0-0.8); ABS Neutrophils 6.9 10^3/ul (1.5-7.7); Eosinophil % 1.7 %; Hematocrit 39 % (42-52); Hemoglobin 13.5 g/dL (14.0-18.0); Lymphocyte % 7.9 %; Mean Corpuscular HGB Conc 34 g/dL (31-36); Mean Corpuscular Hemoglobin 32 pg (27-31); Mean Corpuscular Volume 93 fL (80-94); Mean Platelet Volume 7.5 fL (7.4-10.4); Platelet Count 165 10^3/uL (150-450); Red Blood Count 4.24 10^6 /uL (4.18-5.48); Red Cell Distribution Width 16 % (10-15); White Blood Count 8.5 10^3/uL (3.5-10.8)
[2020-04-15 07:37] VITALS: BP 147/64
== END 2020-04-15 11:10 | disposition home or self-care (01) ==
LOC: SP 08:28 → SSU 08:28
PROVIDERS: ADMIT Nurse Practitioner; ATTEND Internal Medicine

== ENCOUNTER 2020-10-12 08:17 | Inpatient (IN) ==
[~2020-10-12 08:17] MED LIST changes: -Buffered Lidocaine 1% SYRIN* 1 ML/SYRINGE INTRADERM ONE; +Bupivacaine 0.25% EPI 200,000 30 ML SDV INJ SCH; +Bupivacaine 0.5% SDV PF 30ML VIAL INJ SCH; -Famotidine IV* 10 MG/ML 2 ML (20 mg) IV ONE; -Lactated Ringers 1000 ML Bag* 1,000 ML IV SCH; -Levalbuterol 0.63MG/3ML NEB* UNIT OF USE INH ONE
[2020-10-12] MEDS ORDERED: NS 0.9% 1000 ml BAG 1,000 ML IV ONE (08:34)
[2020-10-12 10:12] LABS: ABS Basophils 0.1 10^3/ul (0-0.2); ABS Eosinophils 0.1 10^3/ul (0-0.6); ABS Lymphocytes 0.6 10^3/ul (1.0-4.8); ABS Monocytes 0.6 10^3/ul (0-0.8); ABS Neutrophils 13.9 10^3/ul (1.5-7.7); Eosinophil % 0.5 %; Hematocrit 41 % (42-52); Hemoglobin 14.2 g/dL (14.0-18.0); Lymphocyte % 3.7 %; Mean Corpuscular HGB Conc 35 g/dL (31-36); Mean Corpuscular Hemoglobin 32 pg (27-31); Mean Corpuscular Volume 91 fL (80-94); Platelet Count 185 10^3/uL (150-450); Red Blood Count 4.48 10^6 /uL (4.18-5.48); Red Cell Distribution Width 16 % (10-15); White Blood Count 15.3 10^3/uL (3.5-10.8)
[2020-10-12] MEDS ORDERED: hydrALAZINE 20 mg/ml 1 ML Vial IV IV SLOW PU ONE (10:26)
[2020-10-12 10:31] LABS: Albumin 3.8 g/dL (3.2-5.2); Albumin/Globulin Ratio 1.1 (1-3); BUN/Creatinine Ratio 16.1 (8-20); Calcium 9.3 mg/dL (8.6-10.3); EGFR African American 76.1 (>60); EGFR Non-African American 62.9 (>60); Globulin 3.4 g/dL (2-4); Magnesium 1.7 mg/dL (1.9-2.7); Potassium 4.1 mmol/L (3.5-5.0); Total Bilirubin 0.7 mg/dL (0.2-1.0); Total Protein 7.2 g/dL (6.4-8.9)
[2020-10-12 10:32] LABS: Troponin I 0.01 ng/mL (<0.03)
[2020-10-12] MEDS ORDERED: Magnesium Sulfate 2 gm BAG 2 GM/50 ML BAG IVPB ONE (10:49)
[2020-10-12] MEDS ORDERED: fentaNYL 100 mcg/2 ml 50 MCG/ML VIAL IV SLOW PU ONE (10:58)
[2020-10-12 11:06] LABS: TSH Ultra Thyroid Stim Horm 5.27 mcIU/mL (0.34-5.60)
[2020-10-12 11:48] LABS: Urine Appearance Clear; Urine Bilirubin Negative (Negative); Urine Blood 2+ (Negative); Urine Color Yellow; Urine Glucose Negative (Negative); Urine Ketones Negative (Negative); Urine Nitrite Positive (Negative); Urine Protein Negative (Negative); Urine Specific Gravity 1.008 (1.010-1.030); Urine Urobilinogen Negative (Negative)
[2020-10-12 11:48] LABS: Activated Partial Thrombo Time 32.1 seconds (26.0-38.0); INR 1.12 (0.82-1.09)
[2020-10-12 11:58] LABS: Urine Bacteria Absent (Absent); Urine Red Blood Cell 3+(>10/hpf) (Absent); Urine Squamous Epithelial Cell Present (Absent); Urine White Blood Cell Trace(0-5/hpf) (Absent)
[2020-10-12 12:02] LABS: C Reactive Protein 5.24 mg/L (<8.01)
[2020-10-12] MEDS ORDERED: Polyethylene Glycol 3350 17 GM PACKET PO PRN ×2 (14:19→23:12)
[2020-10-12] MEDS ORDERED: Perflutren Lipid Microsphere 3 ML VIAL ONE (14:52)
[2020-10-12] MEDS ORDERED: Propofol 10 MG/ML 20 ML BTL ONE ×2 (18:23→18:50)
[2020-10-12] MEDS ORDERED: ceFAZolin 2 GM/50 ML DUPLEX BAG ONE (18:44)
[2020-10-12] MEDS ORDERED: Ketamine HCL 50 mg/ml 10 ml VIAL (500 MG) ONE (18:50)
[2020-10-12] MEDS ORDERED: Dexamethasone IV 4 MG/ML VIAL 1 ml VIAL ONE (18:50)
[2020-10-12] MEDS ORDERED: Midazolam 5 mg/5 ml VIAL 1 mg/ml 5 ml VIAL (5 mg) ONE (18:50)
[2020-10-12] MEDS ORDERED: Lidocaine 2% PF 5 ML VIAL ONE (18:50)
[2020-10-12] MEDS ORDERED: Phenylephrine IV 10 MG/ML 1 ml VIAL ONE (18:50)
[2020-10-12] MEDS ORDERED: Bupivacaine 0.5% SDV PF 30ML VIAL ONE (18:50)
[2020-10-12] MEDS ORDERED: Ondansetron 4 mg VIAL 2 MG/ML 2 ml VIAL IV PRN (21:13)
[2020-10-12] MEDS ORDERED: Naloxone 0.4 mg VIAL 0.4 mg/ml 1 ml VIAL IV PRN (21:13)
[2020-10-12] MEDS ORDERED: fentaNYL 100 mcg/2 ml 50 MCG/ML VIAL IV PRN (21:13)
[2020-10-13] MEDS: ceFAZolin 1 GM in Dextrose 1 GM/50 ML BAG IVPB SCH ×2 (03:29→12:01)
[2020-10-13] MEDS: oxyCODONE/Acetamin 5/325 mg TAB PO PRN ×4 (06:19→22:32)
[2020-10-13 06:39] LABS: ABS Lymphocytes 0.4 10^3/ul (1.0-4.8); ABS Monocytes 0.8 10^3/ul (0-0.8); ABS Neutrophils 12.5 10^3/ul (1.5-7.7); Eosinophil % 0.1 %; Hematocrit 34 % (42-52); Hemoglobin 11.4 g/dL (14.0-18.0); Lymphocyte % 2.8 %; Mean Corpuscular HGB Conc 34 g/dL (31-36); Mean Corpuscular Hemoglobin 31 pg (27-31); Mean Corpuscular Volume 91 fL (80-94); Mean Platelet Volume 6.9 fL (7.4-10.4); Platelet Count 164 10^3/uL (150-450); Red Blood Count 3.73 10^6 /uL (4.18-5.48); Red Cell Distribution Width 16 % (10-15); White Blood Count 13.8 10^3/uL (3.5-10.8)
[2020-10-13 07:03] LABS: Anion Gap 6 mmol/L (2-11); BUN/Creatinine Ratio 22.1 (8-20); Blood Urea Nitrogen 27 mg/dL (6-24); CO2 Carbon Dioxide 27 mmol/L (22-32); Calcium 8.6 mg/dL (8.6-10.3); Chloride 105 mmol/L (101-111); Glucose 126 mg/dL (70-100); Potassium 4.5 mmol/L (3.5-5.0); Sodium 138 mmol/L (135-145)
[2020-10-13] MEDS: Aspirin EC 81 mg TAB.EC (enteric coated) PO SCH (09:42)
[2020-10-13] MEDS ORDERED: Senna TAB 8.6 mg TAB PO PRN (10:09)
[2020-10-13] MEDS ORDERED: Lactated Ringers 500 ml BAG 500 ML IV ONE (11:10)
[2020-10-13] MEDS ORDERED: cefTRIAXone 1 gm/50 mL NS BAG 1 GM/50 ML BAG IVPB SCH ×2 (12:00)
[2020-10-13] MEDS: Enoxaparin 40 MG/0.4 ML SYR SUBCUT SCH (12:04)
[2020-10-13 12:30] LABS: Magnesium 2.1 mg/dL (1.9-2.7)
[2020-10-13 12:47] LABS: Troponin I 0.04 ng/mL (<0.03)
[2020-10-13 13:59] LABS: Troponin I 0.03 ng/mL (<0.03)
[2020-10-13] MEDS: Cefepime 2 GM in Dextrose 2 GM/50 ML BAG IV SCH (16:16)
[2020-10-14] MEDS: Cefepime 2 GM in Dextrose 2 GM/50 ML BAG IV SCH ×2 (05:12→13:55)
[2020-10-14 05:35] LABS: ABS Eosinophils 0.5 10^3/ul (0-0.6); ABS Lymphocytes 0.3 10^3/ul (1.0-4.8); ABS Monocytes 0.6 10^3/ul (0-0.8); Hematocrit 25 % (42-52); Hemoglobin 8.8 g/dL (14.0-18.0); Lymphocyte % 3.5 %; Mean Corpuscular HGB Conc 35 g/dL (31-36); Mean Corpuscular Hemoglobin 32 pg (27-31); Mean Corpuscular Volume 91 fL (80-94); Mean Platelet Volume 7.2 fL (7.4-10.4); Platelet Count 126 10^3/uL (150-450); Red Blood Count 2.75 10^6 /uL (4.18-5.48); Red Cell Distribution Width 16 % (10-15); White Blood Count 9.4 10^3/uL (3.5-10.8)
[2020-10-14 05:52] LABS: BUN/Creatinine Ratio 26.7 (8-20); Calcium 8.2 mg/dL (8.6-10.3); EGFR African American 50.1 (>60); EGFR Non-African American 41.4 (>60); Potassium 4.2 mmol/L (3.5-5.0)
[2020-10-14] MEDS ORDERED: NS 0.9% 1000 ml BAG 1,000 ML IV SCH (07:45)
[2020-10-14] MEDS ORDERED: Lidocaine 1% w EPI 1:100,000 MDV 20 ML VIAL ONE (08:10)
[2020-10-14] MEDS: oxyCODONE/Acetamin 5/325 mg TAB PO PRN ×3 (09:39→18:10)
[2020-10-14] MEDS: Aspirin EC 81 mg TAB.EC (enteric coated) PO SCH (09:39)
[2020-10-14] MEDS: Enoxaparin 40 MG/0.4 ML SYR SUBCUT SCH (09:40)
[2020-10-14] MEDS: NS 0.9% 1000 ml BAG 1,000 ML IV SCH ×2 (11:30→19:53)
[2020-10-15] MEDS: NS 0.9% 1000 ml BAG 1,000 ML IV SCH (03:50)
[2020-10-15] MEDS: Cefepime 2 GM in Dextrose 2 GM/50 ML BAG IV SCH ×2 (04:50→16:28)
[2020-10-15 07:23] LABS: Calcium 7.8 mg/dL (8.6-10.3); Potassium 4.3 mmol/L (3.5-5.0)
[2020-10-15 07:28] LABS: BUN/Creatinine Ratio 31.3 (8-20); EGFR African American 73.9 (>60)
[2020-10-15] MEDS: Aspirin EC 81 mg TAB.EC (enteric coated) PO SCH (09:19)
[2020-10-15] MEDS: oxyCODONE/Acetamin 5/325 mg TAB PO PRN ×3 (09:20→20:55)
[2020-10-15] MEDS: Enoxaparin 40 MG/0.4 ML SYR SUBCUT SCH (09:26)
[2020-10-15 12:01] LABS: ABS Basophils 0.1 10^3/ul (0-0.2); ABS Eosinophils 0.3 10^3/ul (0-0.6); ABS Lymphocytes 0.3 10^3/ul (1.0-4.8); ABS Monocytes 0.6 10^3/ul (0-0.8); ABS Neutrophils 6.9 10^3/ul (1.5-7.7); Eosinophil % 3.8 %; Hematocrit 23 % (42-52); Lymphocyte % 3.6 %; Mean Corpuscular HGB Conc 35 g/dL (31-36); Mean Corpuscular Hemoglobin 32 pg (27-31); Mean Corpuscular Volume 91 fL (80-94); Mean Platelet Volume 7.2 fL (7.4-10.4); Platelet Count 132 10^3/uL (150-450); Red Blood Count 2.53 10^6 /uL (4.18-5.48); Red Cell Distribution Width 16 % (10-15); White Blood Count 8.2 10^3/uL (3.5-10.8)
[2020-10-15 16:33] LABS: % Iron Saturation 12 % (15-55); Iron 30 ug/dL (50-212); Total Iron Binding Capacity 246 mcg/dL (250-450); Transferrin 176 mg/dL (203-362); Unsaturated Iron Binding < 231 ug/dL
[2020-10-15 16:53] LABS: Folate 10.57 ng/mL (>3.99)
[2020-10-15 16:54] LABS: Vitamin B12 685 pg/mL (180-914)
[2020-10-16] MEDS: Cefepime 2 GM in Dextrose 2 GM/50 ML BAG IV SCH ×2 (04:27→15:52)
[2020-10-16 06:22] LABS: Calcium 8.2 mg/dL (8.6-10.3); EGFR African American 86.8 (>60); EGFR Non-African American 71.7 (>60); Potassium 4.1 mmol/L (3.5-5.0)
[2020-10-16] MEDS: Aspirin EC 81 mg TAB.EC (enteric coated) PO SCH (08:14)
[2020-10-16] MEDS: oxyCODONE/Acetamin 5/325 mg TAB PO PRN ×2 (08:14→20:22)
[2020-10-16] MEDS: Enoxaparin 40 MG/0.4 ML SYR SUBCUT SCH (08:15)
[2020-10-16 11:00] LABS: ABS Basophils 0.1 10^3/ul (0-0.2); ABS Eosinophils 0.2 10^3/ul (0-0.6); ABS Lymphocytes 0.4 10^3/ul (1.0-4.8); ABS Monocytes 0.6 10^3/ul (0-0.8); ABS Neutrophils 5.8 10^3/ul (1.5-7.7); Eosinophil % 3.1 %; Hematocrit 24 % (42-52); Hemoglobin 8.3 g/dL (14.0-18.0); Lymphocyte % 5.8 %; Mean Corpuscular HGB Conc 35 g/dL (31-36); Mean Corpuscular Hemoglobin 32 pg (27-31); Mean Corpuscular Volume 93 fL (80-94); Nucleated Red Blood Cells % 0.1; Platelet Count 146 10^3/uL (150-450); Red Blood Count 2.57 10^6 /uL (4.18-5.48); Red Cell Distribution Width 16 % (10-15); White Blood Count 7.1 10^3/uL (3.5-10.8)
[2020-10-16] MEDS ORDERED: Cosyntropin 0.25 MG VIAL IV ONE (12:30)
[2020-10-16] MEDS: Iron Sucrose 200 MG in NS 0.9% 100 ml BAG 100 ML IVPB SCH (14:49)
[2020-10-16 17:08] LABS: Ferritin 87.9 ng/mL (24-336)
[2020-10-17] MEDS: Cefepime 2 GM in Dextrose 2 GM/50 ML BAG IV SCH (05:00)
[2020-10-17 05:42] LABS: BUN/Creatinine Ratio 19.8 (8-20); Calcium 8.2 mg/dL (8.6-10.3); EGFR African American 85.8 (>60); EGFR Non-African American 70.9 (>60)
[2020-10-17] MEDS: Enoxaparin 40 MG/0.4 ML SYR SUBCUT SCH (08:08)
[2020-10-17] MEDS: Aspirin EC 81 mg TAB.EC (enteric coated) PO SCH (08:09)
[2020-10-17] MEDS: oxyCODONE/Acetamin 5/325 mg TAB PO PRN (08:09)
[2020-10-17] MEDS: Iron Sucrose 200 MG in NS 0.9% 100 ml BAG 100 ML IVPB SCH (10:00)
[2020-10-17 11:30] VITALS: BP 103/36
== END 2020-10-17 13:20 | DRG 481 ==
LOC: ED 08:17 → SSU 12:00 → AA 12:00 → ED 18:33 → SSU 10-14 17:15
PROVIDERS: ADMIT Internal Medicine; ATTEND Internal Medicine

== ENCOUNTER 2020-10-17 13:09 | Inpatient (IN) ==
[2020-10-17] MEDS ORDERED: Magnesium Hydroxide LIQ 30 ML UDC PO PRN (16:49)
[2020-10-17] MEDS ORDERED: Senna TAB 8.6 mg TAB PO PRN (16:49)
[2020-10-17] MEDS ORDERED: oxyCODONE/Acetamin 5/325 mg TAB PO PRN (17:11)
[2020-10-17] MEDS: Cefepime 2 GM in Dextrose 2 GM/50 ML BAG IV SCH (18:31)
[2020-10-17] MEDS: oxyCODONE/Acetamin 5/325 mg TAB PO PRN (19:56)
[2020-10-18] MEDS: Cefepime 2 GM in Dextrose 2 GM/50 ML BAG IV SCH ×2 (05:57→18:28)
[2020-10-18] MEDS: Aspirin EC 81 mg TAB.EC (enteric coated) PO SCH (08:52)
[2020-10-18] MEDS: oxyCODONE/Acetamin 5/325 mg TAB PO PRN ×3 (08:52→20:05)
[2020-10-18] MEDS: Enoxaparin 40 MG/0.4 ML SYR SUBCUT SCH (08:52)
[2020-10-18] MEDS: Iron Sucrose 200 MG in NS 0.9% 100 ml BAG 100 ML IVPB SCH (14:36)
[2020-10-19] MEDS: Cefepime 2 GM in Dextrose 2 GM/50 ML BAG IV SCH ×2 (05:57→18:25)
[2020-10-19 06:36] LABS: ABS Basophils 0.1 10^3/ul (0-0.2); ABS Eosinophils 0.5 10^3/ul (0-0.6); ABS Lymphocytes 0.5 10^3/ul (1.0-4.8); ABS Neutrophils 7.8 10^3/ul (1.5-7.7); ABS Nucleated RBC 0.1 10^3/ul; Eosinophil % 4.8 %; Hematocrit 26 % (42-52); Hemoglobin 8.8 g/dL (14.0-18.0); Lymphocyte % 4.9 %; Mean Corpuscular HGB Conc 35 g/dL (31-36); Mean Corpuscular Hemoglobin 32 pg (27-31); Mean Corpuscular Volume 93 fL (80-94); Mean Platelet Volume 7.2 fL (7.4-10.4); Nucleated Red Blood Cells % 1.3; Platelet Count 198 10^3/uL (150-450); Red Blood Count 2.77 10^6 /uL (4.18-5.48); Red Cell Distribution Width 16 % (10-15); White Blood Count 9.8 10^3/uL (3.5-10.8)
[2020-10-19 06:53] LABS: Albumin 3.3 g/dL (3.2-5.2); Albumin/Globulin Ratio 1.1 (1-3); BUN/Creatinine Ratio 18.9 (8-20); Calcium 8.7 mg/dL (8.6-10.3); EGFR African American 81.1 (>60); EGFR Non-African American 67.1 (>60); Globulin 2.9 g/dL (2-4); Potassium 4.2 mmol/L (3.5-5.0); Total Protein 6.2 g/dL (6.4-8.9)
[2020-10-19] MEDS: oxyCODONE/Acetamin 5/325 mg TAB PO PRN ×2 (08:18→20:11)
[2020-10-19] MEDS: Enoxaparin 40 MG/0.4 ML SYR SUBCUT SCH (10:45)
[2020-10-19] MEDS: Aspirin EC 81 mg TAB.EC (enteric coated) PO SCH (10:45)
[2020-10-19] MEDS: Iron Sucrose 200 MG in NS 0.9% 100 ml BAG 100 ML IVPB SCH (14:37)
[2020-10-20] MEDS: Cefepime 2 GM in Dextrose 2 GM/50 ML BAG IV SCH ×2 (06:29→17:51)
[2020-10-20] MEDS: Aspirin EC 81 mg TAB.EC (enteric coated) PO SCH (09:00)
[2020-10-20] MEDS: Enoxaparin 40 MG/0.4 ML SYR SUBCUT SCH (09:00)
[2020-10-20] MEDS: oxyCODONE/Acetamin 5/325 mg TAB PO PRN ×3 (09:10→20:21)
[2020-10-20] MEDS: Iron Sucrose 200 MG in NS 0.9% 100 ml BAG 100 ML IVPB SCH (15:22)
[2020-10-21] MEDS: Aspirin EC 81 mg TAB.EC (enteric coated) PO SCH (08:42)
[2020-10-21] MEDS: oxyCODONE/Acetamin 5/325 mg TAB PO PRN ×2 (08:42→13:20)
[2020-10-21] MEDS: Enoxaparin 40 MG/0.4 ML SYR SUBCUT SCH (08:43)
[2020-10-22] MEDS: oxyCODONE/Acetamin 5/325 mg TAB PO PRN ×3 (00:22→20:55)
[2020-10-22] MEDS: Aspirin EC 81 mg TAB.EC (enteric coated) PO SCH (09:08)
[2020-10-22] MEDS: Enoxaparin 40 MG/0.4 ML SYR SUBCUT SCH (09:15)
[2020-10-23] MEDS: Aspirin EC 81 mg TAB.EC (enteric coated) PO SCH (08:38)
[2020-10-23] MEDS: Enoxaparin 40 MG/0.4 ML SYR SUBCUT SCH (08:39)
[2020-10-23] MEDS: oxyCODONE/Acetamin 5/325 mg TAB PO PRN ×2 (08:43→19:52)
[2020-10-24] MEDS: oxyCODONE/Acetamin 5/325 mg TAB PO PRN ×2 (08:24→20:00)
[2020-10-24] MEDS: Aspirin EC 81 mg TAB.EC (enteric coated) PO SCH (08:28)
[2020-10-24] MEDS: Enoxaparin 40 MG/0.4 ML SYR SUBCUT SCH (08:29)
[2020-10-25] MEDS: Aspirin EC 81 mg TAB.EC (enteric coated) PO SCH (07:22)
[2020-10-25] MEDS: oxyCODONE/Acetamin 5/325 mg TAB PO PRN ×2 (07:22→13:09)
[2020-10-25] MEDS: Enoxaparin 40 MG/0.4 ML SYR SUBCUT SCH (08:36)
[2020-10-26] MEDS: oxyCODONE/Acetamin 5/325 mg TAB PO PRN ×3 (00:46→12:51)
[2020-10-26 05:56] LABS: Hematocrit 26 % (42-52); Hemoglobin 8.9 g/dL (14.0-18.0); Mean Corpuscular HGB Conc 34 g/dL (31-36); Mean Corpuscular Hemoglobin 33 pg (27-31); Mean Corpuscular Volume 96 fL (80-94); Mean Platelet Volume 6.8 fL (7.4-10.4); Platelet Count 244 10^3/uL (150-450); Red Blood Count 2.72 10^6 /uL (4.18-5.48); Red Cell Distribution Width 19 % (10-15); White Blood Count 6.7 10^3/uL (3.5-10.8)
[2020-10-26 06:11] LABS: Albumin 3.2 g/dL (3.2-5.2); BUN/Creatinine Ratio 21.6 (8-20); Calcium 8.1 mg/dL (8.6-10.3); EGFR African American 89.9 (>60); EGFR Non-African American 74.3 (>60); Potassium 4.1 mmol/L (3.5-5.0); Total Protein 6.2 g/dL (6.4-8.9)
[2020-10-26 06:12] LABS: Albumin/Globulin Ratio 1.1 (1-3); Total Bilirubin 0.9 mg/dL (0.2-1.0)
[2020-10-26 06:59] LABS: ABS Eosinophils 0.4 10^3/ul (0-0.6); ABS Lymphocytes 0.8 10^3/ul (1.0-4.8); ABS Monocytes 0.5 10^3/ul (0-0.8); Eosinophil % 5.5 %; Nucleated Red Blood Cells % 0.1
[2020-10-26] MEDS: Aspirin EC 81 mg TAB.EC (enteric coated) PO SCH (08:32)
[2020-10-26] MEDS: Enoxaparin 40 MG/0.4 ML SYR SUBCUT SCH (08:32)
[2020-10-27] MEDS: oxyCODONE/Acetamin 5/325 mg TAB PO PRN ×3 (08:55→21:14)
[2020-10-27] MEDS: Aspirin EC 81 mg TAB.EC (enteric coated) PO SCH (10:42)
[2020-10-27] MEDS: Enoxaparin 40 MG/0.4 ML SYR SUBCUT SCH (10:43)
[2020-10-28] MEDS: oxyCODONE/Acetamin 5/325 mg TAB PO PRN ×3 (08:43→20:16)
[2020-10-28] MEDS: Enoxaparin 40 MG/0.4 ML SYR SUBCUT SCH (08:48)
[2020-10-28] MEDS: Aspirin EC 81 mg TAB.EC (enteric coated) PO SCH (08:51)
[2020-10-28] MEDS: Nystatin SUSPENSION 100,000 UNITS/ML UDC PO SCH ×2 (17:54→20:16)
[2020-10-29] MEDS: Nystatin SUSPENSION 100,000 UNITS/ML UDC PO SCH ×4 (09:26→20:10)
[2020-10-29] MEDS: Aspirin EC 81 mg TAB.EC (enteric coated) PO SCH (09:26)
[2020-10-29] MEDS: Enoxaparin 40 MG/0.4 ML SYR SUBCUT SCH (09:30)
[2020-10-29] MEDS: oxyCODONE/Acetamin 5/325 mg TAB PO PRN (16:21)
[2020-10-30] MEDS: Enoxaparin 40 MG/0.4 ML SYR SUBCUT SCH (08:24)
[2020-10-30] MEDS: Aspirin EC 81 mg TAB.EC (enteric coated) PO SCH (08:26)
[2020-10-30] MEDS: Nystatin SUSPENSION 100,000 UNITS/ML UDC PO SCH ×4 (08:27→20:02)
[2020-10-30] MEDS: oxyCODONE/Acetamin 5/325 mg TAB PO PRN ×2 (10:13→20:02)
[2020-10-31] MEDS: oxyCODONE/Acetamin 5/325 mg TAB PO PRN ×2 (08:55→12:41)
[2020-10-31] MEDS: Aspirin EC 81 mg TAB.EC (enteric coated) PO SCH (08:57)
[2020-10-31] MEDS: Enoxaparin 40 MG/0.4 ML SYR SUBCUT SCH (08:58)
[2020-10-31] MEDS: Nystatin SUSPENSION 100,000 UNITS/ML UDC PO SCH ×4 (09:12→20:56)
[2020-11-01 06:44] VITALS: BP 149/66
[2020-11-01] MEDS: Nystatin SUSPENSION 100,000 UNITS/ML UDC PO SCH (09:12)
[2020-11-01] MEDS: Aspirin EC 81 mg TAB.EC (enteric coated) PO SCH (09:12)
[2020-11-01] MEDS: Enoxaparin 40 MG/0.4 ML SYR SUBCUT SCH (09:12)
[2020-11-01] MEDS: oxyCODONE/Acetamin 5/325 mg TAB PO PRN (11:17)
== END 2020-11-01 11:45 | disposition home health service (06) | DRG 560 ==
LOC: PMRU 14:00
PROVIDERS: ADMIT Physical Medicine & Rehabilitation; ATTEND Physical Medicine & Rehabilitation

== ENCOUNTER 2021-01-02 14:29 | Inpatient (IN) ==
[2021-01-02] MEDS ORDERED: NS 0.9% 1000 ml BAG 1,000 ML IV.FLUID IV ONE (15:01)
[2021-01-02] MEDS ORDERED: Piperacillin/Tazobac ADVAN 3.375 GM in NS 0.9% 100 ml BAG 100 ML IV ONE (15:03)
[2021-01-02 15:37] LABS: ABS Lymphocytes 0.2 10^3/ul (1.0-4.8); ABS Monocytes 0.5 10^3/ul (0-0.8); ABS Neutrophils 10.9 10^3/ul (1.5-7.7); Eosinophil % 0.1 %; Hematocrit 36 % (42-52); Hemoglobin 12.6 g/dL (14.0-18.0); Lymphocyte % 1.7 %; Mean Corpuscular HGB Conc 35 g/dL (31-36); Mean Corpuscular Hemoglobin 33 pg (27-31); Mean Corpuscular Volume 94 fL (80-94); Mean Platelet Volume 6.9 fL (7.4-10.4); Platelet Count 178 10^3/uL (150-450); Red Blood Count 3.85 10^6 /uL (4.18-5.48); Red Cell Distribution Width 16 % (10-15); White Blood Count 11.6 10^3/uL (3.5-10.8)
[2021-01-02 15:55] LABS: Troponin I 0.02 ng/mL (<0.03)
[2021-01-02 16:14] LABS: INR 1.29 (0.82-1.09)
[2021-01-02 16:31] LABS: Albumin 3.4 g/dL (3.2-5.2); Albumin/Globulin Ratio 1.2 (1-3); C Reactive Protein 55.74 mg/L (<8.01); Calcium 8.5 mg/dL (8.6-10.3); EGFR African American 74.4 (>60); EGFR Non-African American 61.5 (>60); Globulin 2.9 g/dL (2-4); Potassium 3.7 mmol/L (3.5-5.0); Total Bilirubin 0.6 mg/dL (0.2-1.0); Total Protein 6.3 g/dL (6.4-8.9)
[2021-01-02] MEDS ORDERED: Vancomycin 1,000 MG in NS 0.9% 250 ml 250 ML IVPB SCH (16:48)
[2021-01-02] MEDS ORDERED: Vancomycin per Pharmacy 1 EA NOTE FOLLOW UP PRN (16:55)
[2021-01-02] MEDS ORDERED: Vancomycin 1,500 MG in NS 0.9% 250 ml 250 ML IVPB ONE (17:00)
[2021-01-02 17:11] LABS: Urine Appearance Clear; Urine Bilirubin Negative (Negative); Urine Blood Negative (Negative); Urine Color Yellow; Urine Glucose Negative (Negative); Urine Ketones Negative (Negative); Urine Nitrite Positive (Negative); Urine Protein Negative (Negative); Urine Specific Gravity 1.006 (1.002-1.030); Urine Urobilinogen Negative (Negative)
[2021-01-02 17:18] LABS: Urine Bacteria Absent (Absent); Urine Red Blood Cell 1+(3-5/hpf) (Absent); Urine Squamous Epithelial Cell Present (Absent); Urine White Blood Cell Trace(0-5/hpf) (Absent)
[2021-01-02] MEDS ORDERED: Albuterol HFA INHALER 8 gm MDI INH PRN (19:30)
[2021-01-02] MEDS: Cholecalciferol (VIT D3) 1,000 unit TAB PO SCH (21:08)
[2021-01-02] MEDS: Multivitamins/Mins AREDS2 (NF) CAP PO SCH (21:15)
[2021-01-02] MEDS: Cefepime 2 GM in Dextrose 2 GM/50 ML BAG IV SCH (22:44)
[2021-01-03 05:22] LABS: ABS Lymphocytes 0.2 10^3/ul (1.0-4.8); ABS Monocytes 0.5 10^3/ul (0-0.8); ABS Neutrophils 5.5 10^3/ul (1.5-7.7); Eosinophil % 0.1 %; Hematocrit 37 % (42-52); Hemoglobin 12.6 g/dL (14.0-18.0); Lymphocyte % 3.6 %; Mean Corpuscular HGB Conc 35 g/dL (31-36); Mean Corpuscular Hemoglobin 33 pg (27-31); Mean Corpuscular Volume 94 fL (80-94); Mean Platelet Volume 6.9 fL (7.4-10.4); Platelet Count 161 10^3/uL (150-450); Red Blood Count 3.87 10^6 /uL (4.18-5.48); Red Cell Distribution Width 16 % (10-15); White Blood Count 6.2 10^3/uL (3.5-10.8)
[2021-01-03] MEDS: Vancomycin 750 MG in NS 0.9% 250 ML IVPB SCH ×2 (05:25→17:02)
[2021-01-03 05:32] LABS: INR 1.29 (0.82-1.09)
[2021-01-03 05:42] LABS: Calcium 8.5 mg/dL (8.6-10.3); EGFR African American 79.2 (>60); EGFR Non-African American 65.5 (>60); Potassium 3.8 mmol/L (3.5-5.0)
[2021-01-03] MEDS: Multivitamins/Mins AREDS2 (NF) CAP PO SCH ×2 (08:30→21:51)
[2021-01-03] MEDS ORDERED: NS 0.9% 1000 ml BAG 1,000 ML IV SCH (08:30)
[2021-01-03 08:33] LABS: C Reactive Protein 89.96 mg/L (<8.01)
[2021-01-03] MEDS: Cefepime 2 GM in Dextrose 2 GM/50 ML BAG IV SCH ×2 (10:48→21:50)
[2021-01-03 16:19] LABS: ABS Lymphocytes 0.2 10^3/ul (1.0-4.8); ABS Monocytes 0.5 10^3/ul (0-0.8); Eosinophil % 0.6 %; Hematocrit 39 % (42-52); Lymphocyte % 2.7 %; Mean Corpuscular HGB Conc 34 g/dL (31-36); Mean Corpuscular Hemoglobin 32 pg (27-31); Mean Corpuscular Volume 96 fL (80-94); Mean Platelet Volume 6.7 fL (7.4-10.4); Nucleated Red Blood Cells % 0.1; Platelet Count 176 10^3/uL (150-450); Red Blood Count 4.04 10^6 /uL (4.18-5.48); Red Cell Distribution Width 16 % (10-15); White Blood Count 6.8 10^3/uL (3.5-10.8)
[2021-01-03 16:28] LABS: Activated Partial Thrombo Time 29.8 seconds (26.0-38.0); INR 1.3 (0.82-1.09)
[2021-01-03] MEDS ORDERED: Vancomycin Trough Check NOTE FOLLOW UP ONE (17:00)
[2021-01-03] MEDS: Cholecalciferol (VIT D3) 1,000 unit TAB PO SCH (17:01)
[2021-01-03 18:21] LABS: EGFR African American 79.2 (>60); EGFR Non-African American 65.5 (>60)
[2021-01-03] MEDS ORDERED: Diphenoxylat/Atrop 2.5-0.025mg TAB PO PRN (20:55)
[2021-01-03] MEDS: Heparin 5000 UNITS/ML 1 mL VIAL SUBCUT SCH (21:50)
[2021-01-04] MEDS: Heparin 5000 UNITS/ML 1 mL VIAL SUBCUT SCH ×2 (06:00→14:18)
[2021-01-04] MEDS: Vancomycin 750 MG in NS 0.9% 250 ML IVPB SCH (06:00)
[2021-01-04] MEDS: Multivitamins/Mins AREDS2 (NF) CAP PO SCH (08:26)
[2021-01-04] MEDS: Cefepime 2 GM in Dextrose 2 GM/50 ML BAG IV SCH (08:26)
[2021-01-04 11:34] LABS: ABS Eosinophils 0.1 10^3/ul (0-0.6); ABS Lymphocytes 0.3 10^3/ul (1.0-4.8); ABS Monocytes 0.8 10^3/ul (0-0.8); ABS Neutrophils 6.2 10^3/ul (1.5-7.7); Eosinophil % 1.9 %; Hematocrit 38 % (42-52); Hemoglobin 13.2 g/dL (14.0-18.0); Lymphocyte % 4.1 %; Mean Corpuscular HGB Conc 35 g/dL (31-36); Mean Corpuscular Hemoglobin 33 pg (27-31); Mean Corpuscular Volume 94 fL (80-94); Mean Platelet Volume 6.8 fL (7.4-10.4); Platelet Count 169 10^3/uL (150-450); Red Blood Count 4.06 10^6 /uL (4.18-5.48); Red Cell Distribution Width 16 % (10-15); White Blood Count 7.5 10^3/uL (3.5-10.8)
[2021-01-04 11:55] VITALS: BP 151/73
[2021-01-04 23:29] LABS: Anaplasma phagocytophilum Negative (Negative); B. miyamotoi PCR, B Negative (Negative); Babesia divergens/MO-1 Negative (Negative); Babesia ducani Negative (Negative); Ehrlichia chaffeensis Negative (Negative); Ehrlichia ewingii/canis Negative (Negative); Ehrlichia muris eauclairensis Negative (Negative)
== END 2021-01-04 16:05 | disposition home or self-care (01) ==
LOC: ED 14:29 → MED 19:22
PROVIDERS: ADMIT Hospitalist; ATTEND Internal Medicine

== ENCOUNTER 2023-05-02 16:49 | Inpatient (IN) ==
[2023-05-02] MEDS ORDERED: Azithromycin 500 mg/250 ml NS 500 MG/250 ML BAG IVPB ONE (18:28)
[2023-05-02] MEDS ORDERED: Aztreonam 2 GM in NS 0.9% 50 ML 50 ML IVPB ONE (18:28)
[2023-05-02 18:32] LABS: Hematocrit 38.1 % (38-53); Hemoglobin 13.2 g/dL (13.2-16.3); Mean Corpuscular Hemoglobin 31.3 pg (27-33); Mean Corpuscular Hgb Conc 34.6 g/dL (31-36); Mean Corpuscular Volume 90.5 fL (80-97); Mean Platelet Volume 6.8 fL (7.5-11.2); Platelet Count 143 10^3/uL (150-450); Red Blood Count 4.21 10^6/uL (4.06-5.63); Red Cell Distribution Width 16.5 % (12-17); White Blood Count 16.4 10^3/uL (3.6-10.2)
[2023-05-02 18:47] LABS: Albumin 3.7 g/dL (3.2-5.2); Albumin/Globulin Ratio 1.2 (1-3); Calcium 8.9 mg/dL (8.6-10.3); Creatinine, Serum 1.09 mg/dL (0.67-1.17); Potassium 3.7 mmol/L (3.5-5.0); Total Bilirubin 0.7 mg/dL (0.2-1.0); Total Protein 6.7 g/dL (6.4-8.9); eGFR CKD-EPI 66.9 (>60)
[2023-05-02 23:56] LABS: Urine Appearance Clear; Urine Bilirubin Negative (Negative); Urine Blood 1+ (Negative); Urine Color Yellow; Urine Glucose Negative (Negative); Urine Ketones Trace (Negative); Urine Nitrite Negative (Negative); Urine Protein 2+(100 mg/dL) (Negative); Urine Urobilinogen Positive (Negative)
[2023-05-03 00:02] LABS: Urine Bacteria 1+ (Absent); Urine Red Blood Cell 3+(>10/hpf) (Absent); Urine Squamous Epithelial Cell Present (Absent); Urine White Blood Cell Trace(0-5/hpf) (Absent)
[2023-05-03] MEDS ORDERED: DOXYcycline 100 MG in NS 0.9% 250 ml 250 ML IVPB SCH (00:30)
[2023-05-03 06:09] LABS: ABS Lymphocytes 0.5 10^3/uL (1.0-4.8); ABS Monocytes 1.1 10^3/uL (0.0-1.1); ABS Neutrophils 12.5 10^3/uL (1.5-7.6); ABS Nucleated RBC 0.02 10^3/ul; Eosinophil % 0.1 %; Hematocrit 36.5 % (38-53); Hemoglobin 12.7 g/dL (13.2-16.3); Lymphocyte % 3.6 %; Mean Corpuscular Hemoglobin 31.3 pg (27-33); Mean Corpuscular Hgb Conc 34.9 g/dL (31-36); Mean Corpuscular Volume 89.9 fL (80-97); Mean Platelet Volume 7.1 fL (7.5-11.2); Nucleated Red Blood Cells % 0.2 /100 WBC (0.0-0.4); Platelet Count 137 10^3/uL (150-450); Red Blood Count 4.06 10^6/uL (4.06-5.63); White Blood Count 14.1 10^3/uL (3.6-10.2)
[2023-05-03 06:25] LABS: Calcium 8.7 mg/dL (8.6-10.3); Creatinine, Serum 0.91 mg/dL (0.67-1.17); Magnesium 1.6 mg/dL (1.9-2.7); Potassium 3.6 mmol/L (3.5-5.0); eGFR CKD-EPI 83.1 (>60)
[2023-05-03] MEDS: Enoxaparin 40 MG/0.4 ML SYR SUBCUT SCH (08:30)
[2023-05-03 09:08] LABS: C Reactive Protein 123.41 mg/L (<8.01)
[2023-05-03] MEDS ORDERED: Iohexol 300 (CONTRAST) 10 ML SDV IV ONE (11:10)
[2023-05-03] MEDS: Aspirin EC 81 mg TAB.EC (enteric coated) PO SCH (11:18)
[2023-05-03] MEDS: NF: Multivitamins/Mins AREDS2 (NF) CAP PO SCH ×2 (11:19→21:02)
[2023-05-03] MEDS ORDERED: Vancomycin 1,250 MG in NS 0.9% 250 ml 250 ML IVPB ONE (12:00)
[2023-05-03] MEDS ORDERED: Vancomycin per Pharmacy 1 EA NOTE FOLLOW UP SCH (12:00)
[2023-05-03] MEDS: Cefepime 2 GM in Dextrose 2 GM/50 ML BAG IV SCH ×2 (15:00→21:21)
[2023-05-03] MEDS ORDERED: Polyethylene Glycol 3350 17 GM PACKET PO PRN (15:10)
[2023-05-03] MEDS ORDERED: Magnesium Sulf 4 GM/100 ML IV 4,000 MG/100 ML BAG IVPB ONE (15:39)
[2023-05-03] MEDS ORDERED: Potassium Chlor 20 meq TAB.ER PO ONE (15:39)
[2023-05-03] MEDS: Nystatin SUSPENSION 100,000 UNITS/ML UDC PO SCH ×2 (16:57→21:11)
[2023-05-03] MEDS: Bacitracin OINTMENT TUBE TOPICAL SCH (21:16)
[2023-05-04] MEDS: Cefepime 2 GM in Dextrose 2 GM/50 ML BAG IV SCH ×3 (05:49→21:54)
[2023-05-04 06:11] LABS: Hematocrit 36.8 % (38-53); Hemoglobin 12.9 g/dL (13.2-16.3); Mean Corpuscular Hemoglobin 31.3 pg (27-33); Mean Corpuscular Volume 89.6 fL (80-97); Mean Platelet Volume 6.9 fL (7.5-11.2); Platelet Count 158 10^3/uL (150-450); Red Blood Count 4.11 10^6/uL (4.06-5.63); White Blood Count 9.9 10^3/uL (3.6-10.2)
[2023-05-04] MEDS: Vancomycin 750 MG in NS 0.9% 250 ML IVPB SCH ×2 (06:25→18:14)
[2023-05-04 06:45] LABS: Calcium 8.8 mg/dL (8.6-10.3); Creatinine, Serum 0.83 mg/dL (0.67-1.17); Magnesium 2.2 mg/dL (1.9-2.7); Potassium 3.9 mmol/L (3.5-5.0); eGFR CKD-EPI 86.3 (>60)
[2023-05-04] MEDS ORDERED: Influenza vaccine *QUAD* *2023-24* 0.5 ML SYRINGE IM ONE (09:00)
[2023-05-04] MEDS: Bacitracin OINTMENT TUBE TOPICAL SCH ×3 (10:55→21:04)
[2023-05-04] MEDS: Enoxaparin 40 MG/0.4 ML SYR SUBCUT SCH (10:55)
[2023-05-04] MEDS: Aspirin EC 81 mg TAB.EC (enteric coated) PO SCH (10:56)
[2023-05-04] MEDS: NF: Multivitamins/Mins AREDS2 (NF) CAP PO SCH ×2 (10:56→21:05)
[2023-05-04] MEDS: Nystatin SUSPENSION 100,000 UNITS/ML UDC PO SCH ×4 (10:56→21:06)
[2023-05-05] MEDS ORDERED: Vancomycin Trough Check NOTE FOLLOW UP ONE (05:30)
[2023-05-05] MEDS: Cefepime 2 GM in Dextrose 2 GM/50 ML BAG IV SCH ×3 (05:30→21:36)
[2023-05-05 06:10] LABS: ABS Eosinophils 0.4 10^3/uL (0.0-0.5); ABS Lymphocytes 0.4 10^3/uL (1.0-4.8); ABS Monocytes 0.6 10^3/uL (0.0-1.1); ABS Neutrophils 6.3 10^3/uL (1.5-7.6); Eosinophil % 4.6 %; Hematocrit 34.5 % (38-53); Hemoglobin 12.1 g/dL (13.2-16.3); Lymphocyte % 5.3 %; Mean Corpuscular Hemoglobin 31.3 pg (27-33); Mean Corpuscular Hgb Conc 35.1 g/dL (31-36); Mean Corpuscular Volume 89.3 fL (80-97); Mean Platelet Volume 6.8 fL (7.5-11.2); Platelet Count 166 10^3/uL (150-450); Red Blood Count 3.86 10^6/uL (4.06-5.63); Red Cell Distribution Width 16.3 % (12-17); White Blood Count 7.7 10^3/uL (3.6-10.2)
[2023-05-05 06:33] LABS: Calcium 8.6 mg/dL (8.6-10.3); Creatinine, Serum 0.96 mg/dL (0.67-1.17); eGFR CKD-EPI 77.9 (>60)
[2023-05-05] MEDS: Vancomycin 750 MG in NS 0.9% 250 ML IVPB SCH (07:21)
[2023-05-05] MEDS: Enoxaparin 40 MG/0.4 ML SYR SUBCUT SCH (08:11)
[2023-05-05] MEDS: Aspirin EC 81 mg TAB.EC (enteric coated) PO SCH (08:11)
[2023-05-05] MEDS: NF: Multivitamins/Mins AREDS2 (NF) CAP PO SCH ×2 (08:12→21:54)
[2023-05-05] MEDS: Bacitracin OINTMENT TUBE TOPICAL SCH ×2 (08:12→21:54)
[2023-05-05] MEDS: Nystatin SUSPENSION 100,000 UNITS/ML UDC PO SCH ×4 (08:12→21:35)
[2023-05-05 08:47] LABS: C Reactive Protein 58.41 mg/L (<8.01)
[2023-05-05] MEDS: Vancomycin 1000 MG in NS 0.9% 250 ML IVPB SCH (19:41)
[2023-05-06] MEDS: Cefepime 2 GM in Dextrose 2 GM/50 ML BAG IV SCH (06:19)
[2023-05-06] MEDS: Nystatin SUSPENSION 100,000 UNITS/ML UDC PO SCH (08:00)
[2023-05-06] MEDS: NF: Multivitamins/Mins AREDS2 (NF) CAP PO SCH (08:00)
[2023-05-06] MEDS: Enoxaparin 40 MG/0.4 ML SYR SUBCUT SCH (08:00)
[2023-05-06] MEDS: Vancomycin 1000 MG in NS 0.9% 250 ML IVPB SCH (08:00)
[2023-05-06] MEDS: Aspirin EC 81 mg TAB.EC (enteric coated) PO SCH (08:00)
[2023-05-06] MEDS: Bacitracin OINTMENT TUBE TOPICAL SCH (08:01)
[2023-05-06 08:47] LABS: Creatinine, Serum 1.03 mg/dL (0.67-1.17); eGFR CKD-EPI 71.6 (>60)
[2023-05-06 09:31] VITALS: BP 109/59
[2023-05-07] MEDS ORDERED: Vancomycin Trough Check NOTE FOLLOW UP ONE (07:30)
== END 2023-05-06 13:30 | disposition home or self-care (01) | DRG 872 ==
LOC: EDHOLD 16:49 → ED 16:49 → SUATTDRO 22:12 → MED 05-03 08:03 → SUATTDRO 05-03 16:17
PROVIDERS: ADMIT Internal Medicine; ATTEND Hospitalist

== ENCOUNTER 2024-01-05 19:13 | Inpatient (IN) ==
[2024-01-05 19:53] LABS: ABS Lymphocytes 0.2 10^3/uL (1.0-4.8); ABS Monocytes 0.8 10^3/uL (0.0-1.1); ABS Neutrophils 17.1 10^3/uL (1.5-7.6); ABS Nucleated RBC 0.01 10^3/ul; Eosinophil % 0.1 %; Hematocrit 38.8 % (38-53); Hemoglobin 13.5 g/dL (13.2-16.3); Lymphocyte % 1.2 %; Mean Corpuscular Hemoglobin 31.6 pg (27-33); Mean Corpuscular Hgb Conc 34.7 g/dL (31-36); Mean Platelet Volume 6.9 fL (7.5-11.2); Nucleated Red Blood Cells % 0.1 %/100WBC (0.0-0.8); Platelet Count 229 10^3/uL (150-450); Red Blood Count 4.26 10^6/uL (4.06-5.63); Red Cell Distribution Width 16.3 % (12-17); White Blood Count 18.1 10^3/uL (3.6-10.2)
[2024-01-05 19:58] LABS: INR 1.15 (0.83-1.13)
[2024-01-05] MEDS ORDERED: Rocuronium 50 mg VIAL 10 mg/ml 5 ml VIAL (50 mg) ONE (20:03)
[2024-01-05] MEDS ORDERED: Ketamine HCL 50 mg/ml 10 ml VIAL (500 MG) ONE (20:04)
[2024-01-05 20:16] LABS: Albumin 3.8 g/dL (3.2-5.2); Albumin/Globulin Ratio 1.2 (1-3); Creatinine, Serum 1.24 mg/dL (0.67-1.17); Globulin 3.1 g/dL (2-4); Potassium 3.9 mmol/L (3.5-5.0); Total Bilirubin 0.5 mg/dL (0.2-1.0); Total Protein 6.9 g/dL (6.4-8.9)
[2024-01-05] MEDS ORDERED: Albuterol/Ipratropium NEB.SOL (2.5/0.5 MG) 3 ML NEB.SOLN ONE (21:03)
[2024-01-05 21:10] LABS: High Sensitivity Troponin 1 Hr 100 pg/mL (<20)
[2024-01-05] MEDS: Albuterol/Ipratropium NEB.SOL (2.5/0.5 MG) 3 ML NEB.SOLN INH ONE (21:18)
[2024-01-05] MEDS: NS 0.9% 1000 ml BAG 1,000 ML IV ONE (21:18)
[2024-01-05] MEDS: Acetaminophen IV 1 GM/100ML 1,000 MG/100 ML BAG IV ONE (21:18)
[2024-01-05] MEDS: Iodixanol (CONTRAST) 320 MG/ML 100 ML SDV IV ONE (21:25)
[2024-01-05] MEDS: DOXYcycline 100 MG in NS 0.9% 250 ml 250 ML IVPB ONE (21:45)
[2024-01-06] MEDS: Heparin DRIP 25,000 UNITS BAG 25,000 UNITS/250 ML BAG IV SCH (00:26)
[2024-01-06] MEDS: Heparin 5000 UNITS/ML 1 mL VIAL IV SCH (00:29)
[2024-01-06 05:19] LABS: Urine Appearance Clear; Urine Bilirubin Negative (Negative); Urine Blood Negative (Negative); Urine Color Light-Yellow; Urine Glucose Negative (Negative); Urine Ketones Negative (Negative); Urine Nitrite Negative (Negative); Urine Protein Trace (Negative); Urine Specific Gravity >1.050 (1.002-1.030); Urine Urobilinogen 1+ (Negative)
[2024-01-06 05:20] LABS: High Sensitivity Troponin 3 Hr 614 pg/mL (<20)
[2024-01-06] MEDS ORDERED: Albuterol 2.5mg/3 ml (0.083%) NEB.SOLN INH PRN (05:57)
[2024-01-06] MEDS: Azithromycin 500 mg/250 ml NS 500 MG/250 ML BAG IVPB SCH (06:19)
[2024-01-06] MEDS: cefTRIAXone 1 gm/50 mL D5W 1 GM/50 ML BAG IV SCH (06:19)
[2024-01-06 06:34] LABS: ABS Basophils 0.1 10^3/uL (0.0-0.1); ABS Eosinophils 0.2 10^3/uL (0.0-0.5); ABS Lymphocytes 0.7 10^3/uL (1.0-4.8); ABS Monocytes 0.8 10^3/uL (0.0-1.1); ABS Neutrophils 7.9 10^3/uL (1.5-7.6); ABS Nucleated RBC 0.01 10^3/ul; Eosinophil % 1.8 %; Hematocrit 34.7 % (38-53); Lymphocyte % 7.7 %; Mean Corpuscular Hemoglobin 31.6 pg (27-33); Mean Corpuscular Hgb Conc 34.6 g/dL (31-36); Mean Corpuscular Volume 91.3 fL (80-97); Mean Platelet Volume 6.8 fL (7.5-11.2); Nucleated Red Blood Cells % 0.1 %/100WBC (0.0-0.8); Platelet Count 199 10^3/uL (150-450); Red Cell Distribution Width 16.1 % (12-17); White Blood Count 9.7 10^3/uL (3.6-10.2)
[2024-01-06 07:46] LABS: Calcium 8.2 mg/dL (8.6-10.3); Creatinine, Serum 0.98 mg/dL (0.67-1.17); HDL Cholesterol 27.2 mg/dL; Magnesium 1.7 mg/dL (1.9-2.7); Potassium 3.7 mmol/L (3.5-5.0); eGFR CKD-EPI 75.6 (>60)
[2024-01-06] MEDS: Magnesium Sulfate 2 gm BAG 2 GM/50 ML BAG IVPB ONE (08:44)
[2024-01-06] MEDS: Potassium Chlor 20 meq TAB.ER PO ONE (08:48)
[2024-01-06] MEDS: MINS AREDS2 PO SCH (08:50)
[2024-01-06] MEDS: MULTIVITAMINS PO SCH (08:50)
[2024-01-06] MEDS: Enoxaparin 80 MG/0.8 ML SYR SUBCUT SCH (12:54)
[2024-01-06 14:44] LABS: High Sensitivity Troponin 1 Hr 478 pg/mL (<20)
[2024-01-06] MEDS ORDERED: Sulfur Hexaflouride MICROSPHR 25 MG VIAL ONE (15:33)
[2024-01-07] MEDS: Azithromycin 500 mg/250 ml NS 500 MG/250 ML BAG IVPB SCH (08:39)
[2024-01-07] MEDS: cefTRIAXone 1 gm/50 mL D5W 1 GM/50 ML BAG IV SCH (08:39)
[2024-01-07 08:48] LABS: ABS Basophils 0.1 10^3/uL (0.0-0.1); ABS Eosinophils 0.2 10^3/uL (0.0-0.5); ABS Lymphocytes 0.4 10^3/uL (1.0-4.8); ABS Monocytes 0.5 10^3/uL (0.0-1.1); ABS Neutrophils 6.8 10^3/uL (1.5-7.6); Hematocrit 38.8 % (38-53); Hemoglobin 13.4 g/dL (13.2-16.3); Lymphocyte % 5.4 %; Mean Corpuscular Hemoglobin 31.5 pg (27-33); Mean Corpuscular Hgb Conc 34.5 g/dL (31-36); Mean Corpuscular Volume 91.2 fL (80-97); Mean Platelet Volume 6.5 fL (7.5-11.2); Platelet Count 243 10^3/uL (150-450); Red Blood Count 4.26 10^6/uL (4.06-5.63); Red Cell Distribution Width 15.8 % (12-17)
[2024-01-07 09:23] LABS: Calcium 8.6 mg/dL (8.6-10.3); Creatinine, Serum 0.93 mg/dL (0.67-1.17); eGFR CKD-EPI 80.5 (>60)
[2024-01-07 14:24] VITALS: BP 99/52
== END 2024-01-07 16:06 | disposition home or self-care (01) | DRG 871 ==
LOC: EDHOLD 19:13 → ED 19:13 → SUATTDRO 23:39 → MEDTELE 01-06 09:14
PROVIDERS: ADMIT Student in an Organized Health Care Education/Training Program; ATTEND Hospitalist